=== PATIENT | male | born 1955 | race Caucasian/White ===

== ENCOUNTER 2016-10-24 03:54 | Inpatient (IN) | payer MEDICARE, OTHER ==
[~2016-10-24] VITALS: Ht 172.7 cm; Wt 104.9 kg
[~2016-10-24 03:54] MED LIST: ASPI81TA2 PO; ATOR20TA86 PO; BUME1TAB30 PO; CHOL200016 PO; CLOP75 PO; DULO30CA2 PO; INSU100V SQ; ISOS30TA6 PO; METO25TA3 PO; MULT-1272 PO; ONDA4 PO; RANO10003 PO
[2016-10-24] MEDS ORDERED: AMLO10TA55 PO (04:15)
[2016-10-24] MEDS ORDERED: OXYC-164 PO (04:15)
[2016-10-24] MEDS ORDERED: CALC667C PO (04:15)
[2016-10-24] MEDS ORDERED: MV,F1CAP PO (04:15)
[2016-10-24] MEDS ORDERED: PROC5TAB PO (04:15)
[2016-10-24] MEDS ORDERED: CARV6.2534 PO (04:15)
[2016-10-24 04:30] LABS: EOSINOPHILS # (AUTO) 0.04 K/uL (0.00-0.70); EOSINOPHILS % (AUTO) 0.44 % (1.0-6.0); HEMATOCRIT 32.6 % (41-53); HEMOGLOBIN 10.8 g/dL (13.5-17.5); LYMPHOCYTES # (AUTO) 0.6 K/uL (1.0-4.8); LYMPHOCYTES % (AUTO) 6.3 % (22.0-44.0); MEAN CORPUSCULAR HEMOGLOBIN 29.1 pg (26.0-34.0); MEAN CORPUSCULAR VOLUME 88 fL (80-100); MONOCYTES # (AUTO) 0.7 K/uL (0.1-1.0); MONOCYTES % (AUTO) 6.6 % (2.0-9.0); NEUTROPHILS # (AUTO) 8.7 K/uL (1.8-7.7); PLATELET COUNT (AUTO) 233 K/uL (150-450); RED BLOOD CELL COUNT(AUTO) 3.69 MIL/uL (4.50-5.90); RED CELL DISTRIBUTION WIDTH 17.7 % (11.5-14.5); WHITE BLOOD COUNT (AUTO) 10.1 K/uL (4.5-11.0)
[2016-10-24 04:33] LABS: NEUTROPHILS % (AUTO) 86.6 % (40.0-70.0)
[2016-10-24 04:41] LABS: ANION GAP 14 mmol/L (8-16); CALCIUM, TOTAL 7.9 mg/dL (8.8-10.5); CARBON DIOXIDE 25 mmol/L (22-29); CHLORIDE 91 mmol/L (98-107); GLOMERULAR FILTR. RATE CALC 10 mL/min (>60); POTASSIUM 4.7 mmol/L (3.5-5.1); PROTHROMBIN TIME 10.5 SEC (9.4-11.6); SODIUM SERUM 130 mmol/L (136-145); UREA NITROGEN, BLOOD 41 mg/dL (7-18)
[2016-10-24 04:52] LABS: APPEARANCE,URINE TURBID (CLEAR); GLUCOSE, URINE (UA) 500 mg/dL (NEGATIVE); KETONES,URINE NEGATIVE (NEGATIVE); LEUKOCYTE ESTERASE ,URINE LARGE (NEGATIVE); OCCULT BLOOD,URINE MODERATE (NEGATIVE); PROTEIN,URINE SEE CONFIRM (NEGATIVE)
[2016-10-24 04:54] LABS: ADD UA MICROSCOPIC YES
[2016-10-24 04:59] LABS: B-TYPE NATRIURETIC PEPTIDE 1110 pg/mL (0-100)
[2016-10-24 05:05] LABS: ALANINE AMINOTRANSFERASE 17 U/L (12-78); ALBUMIN 2.6 g/dL (3.4-5.0); ASPARTATE AMINOTRANSFERASE 56 U/L (15-37); BILIRUBIN,TOTAL 0.6 mg/dL (0.1-1.0); CREATINE KINASE MB 0.8 ng/mL (0-5); CREATINE KINASE, TOTAL 167 U/L (39-308); TOTAL PROTEIN, SERUM 8.1 g/dL (6.4-8.2)
[2016-10-24 05:06] LABS: SQUAMOUS EPITHELIAL CELL,UR Few /LPF (None Seen); SULFOSALICYLIC ACID,URINE 3+ (Negative); WBC,URINE 51-100 /HPF (0-5)
[2016-10-24] MEDS ORDERED: CefTRIAXone 1 GM/DEXTROSE 50 ML IV ONE (05:30)
[2016-10-24] MEDS ORDERED: ZOLPIDEM TARTRATE 10 MG TABLET PO PRN (05:30)
[2016-10-24] MEDS ORDERED: ONDANSETRON HCL 4 MG/2 ML VIAL IVP PRN (05:30)
[2016-10-24] MEDS ORDERED: AZITHROMYCIN 500 MG/NS 250 ML IV ONE (05:30)
[2016-10-24] MEDS: ACETAMINOPHEN 325 MG TABLET PO PRN (06:32)
[2016-10-24] MEDS ORDERED: IPRATROPIUM BROMIDE 0.5 MG/2.5 ML NEB SOLUTION NEB ONE (07:00)
[2016-10-24] MEDS ORDERED: ALBUTEROL SULFATE 2.5 MG/0.5 ML NEB SOLUTION NEB ONE (07:00)
[2016-10-24] MEDS: AmLODIPine BESYLATE 10 MG TABLET PO SCH (08:41)
[2016-10-24] MEDS: DULoxetine HCL 30 MG CAPSULE PO SCH (08:41)
[2016-10-24] MEDS: RANOLAZINE 500 MG SR TABLET PO SCH ×2 (08:41→21:05)
[2016-10-24] MEDS: CALCIUM ACETATE 667 MG CAPSULE PO SCH ×3 (08:41→18:19)
[2016-10-24] MEDS: METOPROLOL SUCCINATE 25 MG ER TABLET PO SCH ×2 (08:42→21:04)
[2016-10-24] MEDS: CHOLECALCIFEROL (VIT D3) 2,000 UNITS TABLET PO SCH (08:42)
[2016-10-24] MEDS: ISOSORBIDE MONONITRATE 30 MG ER TABLET PO SCH (08:42)
[2016-10-24] MEDS: CLOPIDOGREL BISULFATE 75 MG TABLET PO SCH (08:44)
[2016-10-24] MEDS: PANTOPRAZOLE SODIUM 40 MG DR TABLET PO SCH (08:44)
[2016-10-24] MEDS: ASPIRIN 81 MG CHEWABLE TABLET PO SCH (08:45)
[2016-10-24] MEDS: HEPARIN SODIUM,PORCINE 5,000 UNITS/ML VIAL SQ SCH ×3 (08:45→23:15)
[2016-10-24] MEDS ORDERED: CARVEDILOL 6.25 MG TABLET PO SCH (09:00)
[2016-10-24 14:37] LABS: GLUCOSE,POINT OF CARE 320 MG/DL (70-110)
[2016-10-24 15:42] VITALS: BP 148/79
[2016-10-24] MEDS: OxyCODONE HCL/ACETAMINOPHEN 5-325 MG TABLET PO PRN ×2 (16:16→21:05)
[2016-10-24 19:13] VITALS: BP 151/79
[2016-10-24] MEDS ORDERED: FUROSEMIDE 20 MG/2 ML VIAL ONE (21:02)
[2016-10-24] MEDS: ATORVASTATIN CALCIUM 20 MG TABLET PO SCH (21:05)
[2016-10-24] MEDS ORDERED: FUROSEMIDE 40 MG/4 ML VIAL IVP ONE (21:15)
[2016-10-24] MEDS ORDERED: NITROGLYCERIN 2% (1 GM=INCH) PACKET TP ONE (21:15)
[2016-10-25] VITALS: BP 154/119
[2016-10-25] MEDS ORDERED: SODIUM CHLORIDE 0.9% 2,000 ML IV ONE (03:17)
[2016-10-25 04:00] VITALS: BP 136/72
[2016-10-25 05:49] LABS: ALBUMIN 2.8 g/dL (3.4-5.0); BILIRUBIN,TOTAL 0.6 mg/dL (0.1-1.0); CREATININE 4.76 mg/dL (0.60-1.30); MAGNESIUM 1.8 mg/dL (1.80-2.40); POTASSIUM 4.1 mmol/L (3.5-5.1); TOTAL PROTEIN, SERUM 7.7 g/dL (6.4-8.2)
[2016-10-25 06:50] LABS: BASOPHILS % (AUTO) 0.2 % (0.0-2.0); EOSINOPHILS % (AUTO) 0.4 % (1.0-6.0); HEMATOCRIT 34.9 % (41-53); HEMOGLOBIN 11.1 g/dL (13.5-17.5); LYMPHOCYTES # (AUTO) 0.7 K/uL (1.0-4.8); LYMPHOCYTES % (AUTO) 7.5 % (22.0-44.0); MEAN CORPUSCULAR HEMOGLOBIN 28.3 pg (26.0-34.0); MEAN CORPUSCULAR HGB CONC 31.9 G/dL (31.0-37.0); MEAN CORPUSCULAR VOLUME 89 fL (80-100); MONOCYTES # (AUTO) 0.5 K/uL (0.1-1.0); NEUTROPHILS # (AUTO) 7.7 K/uL (1.8-7.7); NEUTROPHILS % (AUTO) 85.9 % (40.0-70.0); PLATELET COUNT (AUTO) 270 K/uL (150-450); RED BLOOD CELL COUNT(AUTO) 3.93 MIL/uL (4.50-5.90); RED CELL DISTRIBUTION WIDTH 17.2 % (11.5-14.5)
[2016-10-25 08:00] VITALS: BP 144/71
[2016-10-25] MEDS: HEPARIN SODIUM,PORCINE 5,000 UNITS/ML VIAL SQ SCH ×3 (09:19→23:21)
[2016-10-25] MEDS: CLOPIDOGREL BISULFATE 75 MG TABLET PO SCH (09:19)
[2016-10-25] MEDS: ASPIRIN 81 MG CHEWABLE TABLET PO SCH (09:19)
[2016-10-25] MEDS: AmLODIPine BESYLATE 10 MG TABLET PO SCH (09:19)
[2016-10-25] MEDS: METOPROLOL SUCCINATE 25 MG ER TABLET PO SCH ×2 (09:19→20:31)
[2016-10-25] MEDS: CHOLECALCIFEROL (VIT D3) 2,000 UNITS TABLET PO SCH (09:20)
[2016-10-25] MEDS: CALCIUM ACETATE 667 MG CAPSULE PO SCH ×3 (09:20→16:46)
[2016-10-25] MEDS: RANOLAZINE 500 MG SR TABLET PO SCH ×2 (09:20→20:35)
[2016-10-25] MEDS: ISOSORBIDE MONONITRATE 30 MG ER TABLET PO SCH (09:20)
[2016-10-25] MEDS: DULoxetine HCL 30 MG CAPSULE PO SCH (09:21)
[2016-10-25] MEDS: PANTOPRAZOLE SODIUM 40 MG DR TABLET PO SCH (09:22)
[2016-10-25 10:17] LABS: RBC MORPHOLOGY COMMENT ABNORMAL RBC MORPH
[2016-10-25] MEDS: AZITHROMYCIN 500 MG/NS 250 ML IV SCH (10:31)
[2016-10-25] MEDS: CefTRIAXone 1 GM/DEXTROSE 50 ML IV SCH (10:31)
[2016-10-25] MEDS ORDERED: SODIUM CHLORIDE 0.9% 250 ML IV ONE (10:33)
[2016-10-25] MEDS ORDERED: DEXTROSE 50%-WATER 25 GM/50 ML SYRINGE IVP PRN (11:15)
[2016-10-25] MEDS: INSULIN ASPART 100 UNITS/ML SQ PRN ×3 (11:24→23:23)
[2016-10-25 11:41] LABS: GLUCOSE COMMENT 1 Received Meds; GLUCOSE,POINT OF CARE 356 MG/DL (70-110)
[2016-10-25 12:00] VITALS: BP 124/71
[2016-10-25 16:00] VITALS: BP 143/77
[2016-10-25] MEDS ORDERED: SODIUM CHLORIDE 0.9% 1,000 ML IV ONE (18:05)
[2016-10-25] MEDS ORDERED: ALBUMIN HUMAN 25%-12.5GM/50ML IV BOTTLE IV PRN (18:45)
[2016-10-25] MEDS ORDERED: LIDOCAINE HCL/PF 1% 2 ML VIAL ID PRN (18:45)
[2016-10-25] MEDS ORDERED: DiphenhydrAMINE HCL 50 MG/ML VIAL IVP PRN (18:45)
[2016-10-25] MEDS ORDERED: MANNITOL 25%-12.5 GM/50 ML VIAL IVP PRN (18:45)
[2016-10-25] MEDS ORDERED: 0.9% SODIUM CHLORIDE 10 ML SYRINGE IVP PRN (19:15)
[2016-10-25 20:00] VITALS: BP 136/78
[2016-10-25] MEDS: OxyCODONE HCL/ACETAMINOPHEN 5-325 MG TABLET PO PRN (20:31)
[2016-10-25] MEDS: ATORVASTATIN CALCIUM 20 MG TABLET PO SCH (20:31)
[2016-10-25] MEDS: ACETAMINOPHEN 325 MG TABLET PO PRN (21:25)
[2016-10-25 23:26] LABS: GLUCOSE COMMENT 1 Received Meds; GLUCOSE,POINT OF CARE 200 MG/DL (70-110)
[2016-10-25 23:26] LABS: GLUCOSE COMMENT 1 Received Meds; GLUCOSE,POINT OF CARE 321 MG/DL (70-110)
[2016-10-26] VITALS (8 sets, daily range): BP systolic 112–151; BP diastolic 60–86
[2016-10-26 06:02] LABS: ALBUMIN 2.4 g/dL (3.4-5.0); BILIRUBIN,TOTAL 0.4 mg/dL (0.1-1.0); CALCIUM, TOTAL 7.9 mg/dL (8.8-10.5); CREATININE 4.99 mg/dL (0.60-1.30); MAGNESIUM 1.8 mg/dL (1.80-2.40); TOTAL PROTEIN, SERUM 8.1 g/dL (6.4-8.2)
[2016-10-26] MEDS: INSULIN ASPART 100 UNITS/ML SQ PRN ×4 (06:51→20:50)
[2016-10-26 06:56] LABS: BASOPHILS % (AUTO) 0.6 % (0.0-2.0); EOSINOPHILS % (AUTO) 4.7 % (1.0-6.0); HEMATOCRIT 33.3 % (41-53); HEMOGLOBIN 10.6 g/dL (13.5-17.5); MEAN CORPUSCULAR HEMOGLOBIN 28.3 pg (26.0-34.0); MEAN CORPUSCULAR HGB CONC 31.7 G/dL (31.0-37.0); MEAN CORPUSCULAR VOLUME 89 fL (80-100); MONOCYTES # (AUTO) 0.6 K/uL (0.1-1.0); NEUTROPHILS # (AUTO) 4.5 K/uL (1.8-7.7); NEUTROPHILS % (AUTO) 69.7 % (40.0-70.0); PLATELET COUNT (AUTO) 243 K/uL (150-450); RED BLOOD CELL COUNT(AUTO) 3.73 MIL/uL (4.50-5.90); RED CELL DISTRIBUTION WIDTH 17.4 % (11.5-14.5); WHITE BLOOD COUNT (AUTO) 6.4 K/uL (4.5-11.0)
[2016-10-26] MEDS: CefTRIAXone 1 GM/DEXTROSE 50 ML IV SCH (09:15)
[2016-10-26] MEDS: HEPARIN SODIUM,PORCINE 5,000 UNITS/ML VIAL SQ SCH ×3 (09:15→23:32)
[2016-10-26] MEDS: AmLODIPine BESYLATE 10 MG TABLET PO SCH (09:16)
[2016-10-26] MEDS: RANOLAZINE 500 MG SR TABLET PO SCH ×2 (09:16→20:49)
[2016-10-26] MEDS: CLOPIDOGREL BISULFATE 75 MG TABLET PO SCH (09:16)
[2016-10-26] MEDS: CHOLECALCIFEROL (VIT D3) 2,000 UNITS TABLET PO SCH (09:16)
[2016-10-26] MEDS: METOPROLOL SUCCINATE 25 MG ER TABLET PO SCH ×2 (09:16→20:49)
[2016-10-26] MEDS: ISOSORBIDE MONONITRATE 30 MG ER TABLET PO SCH (09:16)
[2016-10-26] MEDS: CALCIUM ACETATE 667 MG CAPSULE PO SCH ×3 (09:16→16:30)
[2016-10-26] MEDS: PANTOPRAZOLE SODIUM 40 MG DR TABLET PO SCH (09:16)
[2016-10-26] MEDS: DULoxetine HCL 30 MG CAPSULE PO SCH (09:17)
[2016-10-26] MEDS: ASPIRIN 81 MG CHEWABLE TABLET PO SCH (09:17)
[2016-10-26] MEDS: VITAMINS A & D 60 GM OINTMENT TP SCH (09:18)
[2016-10-26 09:46] LABS: GLUCOSE COMMENT 1 Received Meds; GLUCOSE,POINT OF CARE 235 MG/DL (70-110)
[2016-10-26] MEDS: AZITHROMYCIN 500 MG/NS 250 ML IV SCH (10:16)
[2016-10-26] MEDS ORDERED: SODIUM CHLORIDE 0.9% 250 ML IV ONE (12:08)
[2016-10-26] MEDS: VITAMIN B COMP/VIT C/FOLIC ACID CAPSULE PO SCH (13:02)
[2016-10-26 20:27] LABS: GLUCOSE COMMENT 1 Received Meds; GLUCOSE,POINT OF CARE 159 MG/DL (70-110)
[2016-10-26 20:27] LABS: GLUCOSE COMMENT 1 Received Meds; GLUCOSE,POINT OF CARE 321 MG/DL (70-110)
[2016-10-26] MEDS: ATORVASTATIN CALCIUM 20 MG TABLET PO SCH (20:49)
[2016-10-26] MEDS: OxyCODONE HCL/ACETAMINOPHEN 5-325 MG TABLET PO PRN (21:29)
[2016-10-27 04:19] VITALS: BP 149/74
[2016-10-27] MEDS: OxyCODONE HCL/ACETAMINOPHEN 5-325 MG TABLET PO PRN ×2 (06:11→22:02)
[2016-10-27] MEDS: INSULIN ASPART 100 UNITS/ML SQ PRN ×3 (06:15→21:43)
[2016-10-27 07:11] VITALS: BP 130/66
[2016-10-27 08:33] LABS: BASOPHILS % (AUTO) 0.4 % (0.0-2.0); EOSINOPHILS % (AUTO) 6.8 % (1.0-6.0); HEMATOCRIT 33.9 % (41-53); HEMOGLOBIN 10.8 g/dL (13.5-17.5); LYMPHOCYTES # (AUTO) 0.9 K/uL (1.0-4.8); LYMPHOCYTES % (AUTO) 15.2 % (22.0-44.0); MEAN CORPUSCULAR HEMOGLOBIN 28.4 pg (26.0-34.0); MEAN CORPUSCULAR VOLUME 89 fL (80-100); MONOCYTES # (AUTO) 0.4 K/uL (0.1-1.0); MONOCYTES % (AUTO) 6.5 % (2.0-9.0); NEUTROPHILS # (AUTO) 4.1 K/uL (1.8-7.7); NEUTROPHILS % (AUTO) 71.1 % (40.0-70.0); PLATELET COUNT (AUTO) 252 K/uL (150-450); RED BLOOD CELL COUNT(AUTO) 3.81 MIL/uL (4.50-5.90); RED CELL DISTRIBUTION WIDTH 17.8 % (11.5-14.5); WHITE BLOOD COUNT (AUTO) 5.7 K/uL (4.5-11.0)
[2016-10-27 08:54] LABS: ALBUMIN 2.2 g/dL (3.4-5.0); BILIRUBIN,TOTAL 0.4 mg/dL (0.1-1.0); CREATININE 6.66 mg/dL (0.60-1.30); POTASSIUM 4.4 mmol/L (3.5-5.1); TOTAL PROTEIN, SERUM 7.8 g/dL (6.4-8.2)
[2016-10-27 09:18] LABS: PHOSPHORUS 5.3 mg/dL (2.5-4.9)
[2016-10-27] MEDS: CALCIUM ACETATE 667 MG CAPSULE PO SCH ×3 (09:20→17:14)
[2016-10-27] MEDS: ISOSORBIDE MONONITRATE 30 MG ER TABLET PO SCH (09:21)
[2016-10-27] MEDS: METOPROLOL SUCCINATE 25 MG ER TABLET PO SCH ×2 (09:21→21:43)
[2016-10-27] MEDS: CLOPIDOGREL BISULFATE 75 MG TABLET PO SCH (09:21)
[2016-10-27] MEDS: HEPARIN SODIUM,PORCINE 5,000 UNITS/ML VIAL SQ SCH ×3 (09:21→23:13)
[2016-10-27] MEDS: CHOLECALCIFEROL (VIT D3) 2,000 UNITS TABLET PO SCH (09:21)
[2016-10-27] MEDS: AmLODIPine BESYLATE 10 MG TABLET PO SCH (09:21)
[2016-10-27] MEDS: DULoxetine HCL 30 MG CAPSULE PO SCH (09:21)
[2016-10-27] MEDS: PANTOPRAZOLE SODIUM 40 MG DR TABLET PO SCH (09:21)
[2016-10-27] MEDS: ASPIRIN 81 MG CHEWABLE TABLET PO SCH (09:21)
[2016-10-27] MEDS: RANOLAZINE 500 MG SR TABLET PO SCH ×2 (09:22→21:43)
[2016-10-27] MEDS: VITAMIN B COMP/VIT C/FOLIC ACID CAPSULE PO SCH (09:25)
[2016-10-27] MEDS: VITAMINS A & D 60 GM OINTMENT TP SCH (09:26)
[2016-10-27] MEDS: CefTRIAXone 1 GM/DEXTROSE 50 ML IV SCH (09:31)
[2016-10-27] MEDS: AZITHROMYCIN 500 MG/NS 250 ML IV SCH (09:32)
[2016-10-27 09:53] LABS: RBC MORPHOLOGY COMMENT ABNORMAL RBC MORPH
[2016-10-27 11:19] VITALS: BP 138/75
[2016-10-27 12:11] LABS: GLUCOSE COMMENT 1 Received Meds; GLUCOSE,POINT OF CARE 267 MG/DL (70-110)
[2016-10-27 15:39] VITALS: BP 151/81
[2016-10-27 19:22] VITALS: BP 143/73
[2016-10-27 19:31] LABS: GLUCOSE COMMENT 1 Received Meds; GLUCOSE,POINT OF CARE 259 MG/DL (70-110)
[2016-10-27 19:31] LABS: GLUCOSE COMMENT 1 Received Meds; GLUCOSE,POINT OF CARE 230 MG/DL (70-110)
[2016-10-27] MEDS ORDERED: SODIUM CHLORIDE 0.9% 2,000 ML IV ONE (20:01)
[2016-10-27] MEDS ORDERED: SODIUM CHLORIDE 0.9% 250 ML IV ONE (20:01)
[2016-10-27] MEDS: ATORVASTATIN CALCIUM 20 MG TABLET PO SCH (21:43)
[2016-10-27 23:27] VITALS: BP 139/73
[2016-10-27 23:57] LABS: GLUCOSE COMMENT 1 Received Meds; GLUCOSE,POINT OF CARE 281 MG/DL (70-110)
[2016-10-28 04:34] VITALS: BP 140/80
[2016-10-28] MEDS: INSULIN ASPART 100 UNITS/ML SQ PRN ×2 (06:44→11:27)
[2016-10-28] MEDS ORDERED: BISACODYL 10 MG RECTAL RECTAL SUPPOSITORY PR PRN (06:45)
[2016-10-28 07:12] LABS: BASOPHILS % (AUTO) 0.4 % (0.0-2.0); EOSINOPHILS % (AUTO) 5.6 % (1.0-6.0); HEMOGLOBIN 9.9 g/dL (13.5-17.5); LYMPHOCYTES # (AUTO) 1.3 K/uL (1.0-4.8); LYMPHOCYTES % (AUTO) 19.6 % (22.0-44.0); MEAN CORPUSCULAR HEMOGLOBIN 28.5 pg (26.0-34.0); MEAN CORPUSCULAR HGB CONC 31.9 G/dL (31.0-37.0); MEAN CORPUSCULAR VOLUME 89 fL (80-100); MONOCYTES # (AUTO) 0.5 K/uL (0.1-1.0); MONOCYTES % (AUTO) 7.2 % (2.0-9.0); NEUTROPHILS # (AUTO) 4.5 K/uL (1.8-7.7); NEUTROPHILS % (AUTO) 67.2 % (40.0-70.0); PLATELET COUNT (AUTO) 289 K/uL (150-450); RED BLOOD CELL COUNT(AUTO) 3.47 MIL/uL (4.50-5.90); RED CELL DISTRIBUTION WIDTH 17.6 % (11.5-14.5); WHITE BLOOD COUNT (AUTO) 6.7 K/uL (4.5-11.0)
[2016-10-28 07:44] LABS: ALBUMIN 2.2 g/dL (3.4-5.0); BILIRUBIN,TOTAL 0.4 mg/dL (0.1-1.0); CALCIUM, TOTAL 7.9 mg/dL (8.8-10.5); CREATININE 5.37 mg/dL (0.60-1.30); MAGNESIUM 1.9 mg/dL (1.80-2.40); POTASSIUM 4.5 mmol/L (3.5-5.1); TOTAL PROTEIN, SERUM 7.6 g/dL (6.4-8.2)
[2016-10-28] MEDS: HEPARIN SODIUM,PORCINE 5,000 UNITS/ML VIAL SQ SCH (08:52)
[2016-10-28] MEDS: RANOLAZINE 500 MG SR TABLET PO SCH (08:52)
[2016-10-28] MEDS: CHOLECALCIFEROL (VIT D3) 2,000 UNITS TABLET PO SCH (08:52)
[2016-10-28] MEDS: VITAMIN B COMP/VIT C/FOLIC ACID CAPSULE PO SCH (08:53)
[2016-10-28] MEDS: PANTOPRAZOLE SODIUM 40 MG DR TABLET PO SCH (08:53)
[2016-10-28] MEDS: CALCIUM ACETATE 667 MG CAPSULE PO SCH ×2 (08:53→11:55)
[2016-10-28] MEDS: ASPIRIN 81 MG CHEWABLE TABLET PO SCH (08:53)
[2016-10-28] MEDS: DULoxetine HCL 30 MG CAPSULE PO SCH (08:53)
[2016-10-28] MEDS: AmLODIPine BESYLATE 10 MG TABLET PO SCH (08:53)
[2016-10-28] MEDS: METOPROLOL SUCCINATE 25 MG ER TABLET PO SCH (08:54)
[2016-10-28] MEDS: ISOSORBIDE MONONITRATE 30 MG ER TABLET PO SCH (08:54)
[2016-10-28] MEDS: VITAMINS A & D 60 GM OINTMENT TP SCH (08:55)
[2016-10-28] MEDS: CefTRIAXone 1 GM/DEXTROSE 50 ML IV SCH (09:08)
[2016-10-28] MEDS: CLOPIDOGREL BISULFATE 75 MG TABLET PO SCH (09:09)
[2016-10-28 09:12] LABS: RBC MORPHOLOGY COMMENT ABNORMAL RBC MORPH
[2016-10-28] MEDS: AZITHROMYCIN 500 MG/NS 250 ML IV SCH (10:58)
[2016-10-28] MEDS ORDERED: LEVO500 PO (14:46)
[2016-10-28] MEDS ORDERED: FOLI1CAP2 PO (14:47)
[2016-10-28] MEDS ORDERED: PETR454O TP (14:48)
[2016-10-29 14:52] LABS: GLUCOSE COMMENT 1 Received Meds; GLUCOSE,POINT OF CARE 242 MG/DL (70-110)
[2016-11-03 18:12] LABS: GLUCOSE,POINT OF CARE 224 MG/DL (70-110)
[2016-11-03 18:12] LABS: GLUCOSE,POINT OF CARE 214 MG/DL (70-110)
[2017-01-27] MEDS ORDERED: ASPI81 PO (23:36)
[2017-01-27] MEDS ORDERED: COMP5 PO (23:36)
[2017-01-27] MEDS ORDERED: TRAM50TA4 PO (23:36)
[2017-01-27] MEDS ORDERED: CARV6 PO (23:36)
[2017-01-27] MEDS ORDERED: TICA90TA PO (23:36)
[2017-01-27] MEDS ORDERED: VITAD1000 PO (23:36)
[2017-01-27] MEDS ORDERED: B&C/1TAB3 PO (23:36)
[2017-01-27] MEDS ORDERED: RANO500T3 PO (23:36)
[2017-01-27] MEDS ORDERED: CLON.2 PO (23:36)
[2017-01-27] MEDS ORDERED: DULO20CA30 PO (23:36)
== END 2016-10-28 13:45 | disposition home or self-care (01) | DRG 166 ==
LOC: EMS 03:56 → 5S 15:08 → ICU 23:55 → 5N 10-26 20:52
PROVIDERS: ADMIT Hospitalist; ATTEND Hospitalist
PROC: 5A1D60Z (ICD-10-PCS; principal; 2016-10-24)
PROC: 5A09357 Assistance with Respiratory Ventilation, Less than 24 Consecutive Hours, Continuous Positive Airway Pressure (ICD-10-PCS; 2016-10-24)
PROC: 0HBMXZZ Excision of Right Foot Skin, External Approach (ICD-10-PCS; 2016-10-25)
DX: J96.01 Acute respiratory failure with hypoxia (principal); I50.23 Acute on chronic systolic (congestive) heart failure; J18.9 Pneumonia, unspecified organism; I21.4 Non-ST elevation (NSTEMI) myocardial infarction; E43 Unspecified severe protein-calorie malnutrition; N18.6 End stage renal disease; A41.9 Sepsis, unspecified organism; I50.43 Acute on chronic combined systolic (congestive) and diastolic (congestive) heart failure; I13.2 Hypertensive heart and chronic kidney disease with heart failure and with stage 5 chronic kidney disease, or end stage renal disease; N39.0 Urinary tract infection, site not specified; E87.1 Hypo-osmolality and hyponatremia; J44.0 Chronic obstructive pulmonary disease with (acute) lower respiratory infection; D63.8 Anemia in other chronic diseases classified elsewhere; E11.22 Type 2 diabetes mellitus with diabetic chronic kidney disease; E11.621 Type 2 diabetes mellitus with foot ulcer; E11.65 Type 2 diabetes mellitus with hyperglycemia; E78.00 Pure hypercholesterolemia, unspecified; E78.5 Hyperlipidemia, unspecified; I25.10 Atherosclerotic heart disease of native coronary artery without angina pectoris; I25.2 Old myocardial infarction; I45.10 Unspecified right bundle-branch block; Z86.73 Personal history of transient ischemic attack (TIA), and cerebral infarction without residual deficits; L97.519 Non-pressure chronic ulcer of other part of right foot with unspecified severity; I73.9 Peripheral vascular disease, unspecified; F17.210 Nicotine dependence, cigarettes, uncomplicated; Z99.2 Dependence on renal dialysis; Z68.35 Body mass index [BMI] 35.0-35.9, adult; Z79.82 Long term (current) use of aspirin; Z79.4 Long term (current) use of insulin; Z79.1 Long term (current) use of non-steroidal anti-inflammatories (NSAID); Z79.891 Long term (current) use of opiate analgesic; Z79.51 Long term (current) use of inhaled steroids; Z79.899 Other long term (current) drug therapy
CPT/HCPCS: 51702; 82962; 83735; 84100; 86706; 87040; 87070; 87081; 87086; 87147; 87205; 87340; 90935; 93005; 93306; 94640; 94660; 96365; 96368; 96375; 97162; 99285; J0456; J0696; J1644; J1940; J2405; J7030; J7050

== ENCOUNTER → 2016-12-19 | Outpatient (CLI) | payer MEDICARE, OTHER ==
[~2016-12-19] MED LIST changes: +AMLO10TA55 PO; -BUME1TAB30 PO; +CALC667C PO; +FOLI1CAP2 PO; +LEVO500 PO; -MULT-1272 PO; -ONDA4 PO; +PETR454O TP
[2016-12-19 12:42] LABS: BASOPHILS # (AUTO) 0.02 K/uL (0.00-0.20); BASOPHILS % (AUTO) 0.1 % (0.0-2.0); EOSINOPHILS # (AUTO) 0.01 K/uL (0.00-0.70); EOSINOPHILS % (AUTO) 0.04 % (1.0-6.0); HEMATOCRIT 29.6 % (41-53); HEMOGLOBIN 9.5 g/dL (13.5-17.5); LYMPHOCYTES # (AUTO) 0.9 K/uL (1.0-4.8); LYMPHOCYTES % (AUTO) 4.8 % (22.0-44.0); MEAN CORPUSCULAR HEMOGLOBIN 28.9 pg (26.0-34.0); MEAN CORPUSCULAR HGB CONC 32.1 G/dL (31.0-37.0); MEAN CORPUSCULAR VOLUME 90 fL (80-100); MONOCYTES # (AUTO) 1.3 K/uL (0.1-1.0); MONOCYTES % (AUTO) 7.3 % (2.0-9.0); PLATELET COUNT (AUTO) 457 K/uL (150-450); RED BLOOD CELL COUNT(AUTO) 3.28 MIL/uL (4.50-5.90); RED CELL DISTRIBUTION WIDTH 19.1 % (11.5-14.5); WHITE BLOOD COUNT (AUTO) 18.2 K/uL (4.5-11.0)
[2016-12-19 12:46] LABS: NEUTROPHILS % (AUTO) 87.8 % (40.0-70.0)
[2016-12-19 12:49] LABS: APPEARANCE,URINE TURBID (CLEAR); GLUCOSE, URINE (UA) 500 mg/dL (NEGATIVE); KETONES,URINE TRACE mg/dL (NEGATIVE); LEUKOCYTE ESTERASE ,URINE LARGE (NEGATIVE); OCCULT BLOOD,URINE SMALL (NEGATIVE); PROTEIN,URINE SEE CONFIRM (NEGATIVE)
[2016-12-19 12:51] LABS: ADD UA MICROSCOPIC YES
[2016-12-19 12:55] LABS: HEMOGLOBIN A1C 11.7 % (4.5-6.2)
[2016-12-19 13:02] LABS: ALBUMIN 2.7 g/dL (3.4-5.0); BILIRUBIN,TOTAL 0.5 mg/dL (0.1-1.0); CALCIUM, TOTAL 8.7 mg/dL (8.8-10.5); CHOL/HDL RATIO 2.6 (4.2-7.3); CREATININE 6.6 mg/dL (0.60-1.30); POTASSIUM 4.7 mmol/L (3.5-5.1); THYROID STIMULATING HORMONE 2.65 uIU/mL (0.36-3.74); TOTAL PROTEIN, SERUM 8.2 g/dL (6.4-8.2)
[2016-12-19 13:12] LABS: PROSTATE SPECIFIC ANTIGEN 0.46 ng/mL (0.00-4.00)
[2016-12-19 13:21] LABS: SULFOSALICYLIC ACID,URINE 3+ (Negative)
[2016-12-19 13:22] LABS: SQUAMOUS EPITHELIAL CELL,UR Moderate /LPF (None Seen); WBC,URINE >100 /HPF (0-5)
== END | disposition home or self-care (01) ==
LOC: LABPV 09:38
PROVIDERS: ATTEND Family Medicine
DX: Z12.5 Encounter for screening for malignant neoplasm of prostate (principal); Z12.11 Encounter for screening for malignant neoplasm of colon; E11.65 Type 2 diabetes mellitus with hyperglycemia; E55.9 Vitamin D deficiency, unspecified; E11.22 Type 2 diabetes mellitus with diabetic chronic kidney disease; I13.0 Hypertensive heart and chronic kidney disease with heart failure and stage 1 through stage 4 chronic kidney disease, or unspecified chronic kidney disease; N18.9 Chronic kidney disease, unspecified; E78.00 Pure hypercholesterolemia, unspecified; N39.0 Urinary tract infection, site not specified; N20.0 Calculus of kidney; R31.9 Hematuria, unspecified; Z79.84 Long term (current) use of oral hypoglycemic drugs; Z94.0 Kidney transplant status
CPT/HCPCS: 82043; 82306; 82570; 83036; 84153; 84443; 87086

== ENCOUNTER → 2017-01-14 | Outpatient (CLI) | payer MEDICARE, OTHER ==
[~2017-01-14] MED LIST changes: +ASPI81 PO; +B&C/1TAB3 PO; +CARV6 PO; +CLON.2 PO; +COMP5 PO; +DULO20CA30 PO; +RANO500T3 PO; +REGADENOSON 0.4 MG/5 ML PF SYRINGE IVP ONE; +SESTAMIBI TC99M/UD ISOTOPE 1 EA INJ INJ ONE; +TICA90TA PO; +TRAM50TA4 PO; +VITAD1000 PO
[2017-01-14 08:59] VITALS: BP 127/84
[2017-01-14 09:04] VITALS: BP 126/75
== END | disposition home or self-care (01) ==
LOC: CARDMN 07:53
PROVIDERS: ATTEND Internal Medicine Cardiovascular Disease
DX: I25.9 Chronic ischemic heart disease, unspecified (principal); I08.1 Rheumatic disorders of both mitral and tricuspid valves; I50.9 Heart failure, unspecified; I50.1 Left ventricular failure, unspecified; I25.2 Old myocardial infarction; I45.10 Unspecified right bundle-branch block; Z95.5 Presence of coronary angioplasty implant and graft
CPT/HCPCS: 78452; 93017; 93306; A9500; J2785

== ENCOUNTER 2017-07-01 10:24 | Inpatient (IN) | payer MEDICARE, OTHER ==
[~2017-07-01] VITALS: Ht 175.3 cm; Wt 104.5 kg
[~2017-07-01 10:24] MED LIST changes: -ASPI81TA2 PO; -CHOL200016 PO; -DULO30CA2 PO; -FOLI1CAP2 PO; -LEVO500 PO; -RANO10003 PO; -REGADENOSON 0.4 MG/5 ML PF SYRINGE IVP ONE; -SESTAMIBI TC99M/UD ISOTOPE 1 EA INJ INJ ONE
[2017-07-01 10:38] LABS: GLUCOSE,POINT OF CARE 152 MG/DL (70-110)
[2017-07-01] MEDS ORDERED: VANCOMYCIN HCL 1 GM/D5% WATER 200 ML IV ONE (12:30)
[2017-07-01] MEDS ORDERED: MORPHINE SULFATE 4 MG/ML SYRINGE IVP ONE (13:00)
[2017-07-01] MEDS ORDERED: ONDANSETRON HCL 4 MG/2 ML VIAL IVP ONE (13:00)
[2017-07-01 13:01] LABS: EOSINOPHILS % (AUTO) 2.3 % (1.0-6.0); HEMATOCRIT 28.8 % (41-53); HEMOGLOBIN 9.3 g/dL (13.5-17.5); LYMPHOCYTES % (AUTO) 8.7 % (22.0-44.0); MEAN CORPUSCULAR HGB CONC 32.3 G/dL (31.0-37.0); MEAN CORPUSCULAR VOLUME 84 fL (80-100); MONOCYTES # (AUTO) 0.8 K/uL (0.1-1.0); MONOCYTES % (AUTO) 6.7 % (2.0-9.0); NEUTROPHILS # (AUTO) 9.8 K/uL (1.8-7.7); NEUTROPHILS % (AUTO) 82.3 % (40.0-70.0); PLATELET COUNT (AUTO) 312 K/uL (150-450); RED BLOOD CELL COUNT(AUTO) 3.45 MIL/uL (4.50-5.90); RED CELL DISTRIBUTION WIDTH 20.7 % (11.5-14.5); WHITE BLOOD COUNT (AUTO) 11.9 K/uL (4.5-11.0)
[2017-07-01 13:28] LABS: CALCIUM, TOTAL 8.5 mg/dL (8.8-10.5); CREATININE 6.16 mg/dL (0.60-1.30); POTASSIUM 4.8 mmol/L (3.5-5.1)
[2017-07-01] MEDS ORDERED: ONDANSETRON HCL 4 MG/2 ML VIAL IVP PRN (13:30)
[2017-07-01] MEDS ORDERED: 0.9% SODIUM CHLORIDE 10 ML SYRINGE IVP PRN (13:30)
[2017-07-01] MEDS ORDERED: ACETAMINOPHEN 325 MG TABLET PO PRN ×2 (13:30→14:00)
[2017-07-01 13:32] LABS: ALBUMIN 2.7 g/dL (3.4-5.0); BILIRUBIN,TOTAL 0.4 mg/dL (0.1-1.0)
[2017-07-01] MEDS ORDERED: BISACODYL 10 MG RECTAL RECTAL SUPPOSITORY PR PRN (14:00)
[2017-07-01] MEDS ORDERED: ALBUTEROL SULFATE 2.5 MG/0.5 ML NEB SOLUTION NEB PRN (14:00)
[2017-07-01 14:18] LABS: GLUCOSE,POINT OF CARE 163 MG/DL (70-110)
[2017-07-01] MEDS ORDERED: DEXTROSE 50%-WATER 25 GM/50 ML SYRINGE IVP PRN (14:30)
[2017-07-01 14:45] LABS: ERYTHROCYTE SEDIMENTATION RATE 115 MM/HR (0-15)
[2017-07-01] MEDS ORDERED: PIPERACILLIN SODIUM/TAZOBACTAM 0.75 GM in DEXTROSE 5%-WATER 50 ML IV PRN (14:45)
[2017-07-01] MEDS ORDERED: VANCOMYCIN HCL 1 GM/D5% WATER 200 ML IV PRN (14:45)
[2017-07-01] MEDS: MORPHINE SULFATE 2 MG/ML SYRINGE IVP PRN (15:27)
[2017-07-01] MEDS ORDERED: SODIUM CHLORIDE 0.9% 500 ML IV ONE (15:31)
[2017-07-01 15:33] LABS: RBC MORPHOLOGY COMMENT ABNORMAL RBC MORPH
[2017-07-01 16:05] VITALS: BP 129/69
[2017-07-01] MEDS: PIPERACILLIN SODIUM/TAZOBACTAM 2.25 GM in DEXTROSE 5%-WATER 50 ML IV SCH (16:58)
[2017-07-01] MEDS ORDERED: VANCOMYCIN HCL 1.25 GM in DEXTROSE 5%-WATER 250 ML IV ONE (17:00)
[2017-07-01] MEDS: INSULIN ASPART 100 UNITS/ML SQ PRN ×2 (17:35→21:47)
[2017-07-01] MEDS: OxyCODONE HCL/ACETAMINOPHEN 5-325 MG TABLET PO PRN (17:49)
[2017-07-01 20:02] VITALS: BP 115/58
[2017-07-01] MEDS: DOCUSATE SODIUM 100 MG CAPSULE PO SCH (21:42)
[2017-07-01] MEDS: HEPARIN SODIUM,PORCINE 5,000 UNITS/ML VIAL SQ SCH (21:42)
[2017-07-01] MEDS: VITAMIN B COMP/VIT C/FOLIC ACID CAPSULE PO SCH (21:43)
[2017-07-01] MEDS: ATORVASTATIN CALCIUM 20 MG TABLET PO SCH (21:43)
[2017-07-01 21:55] LABS: GLUCOSE,POINT OF CARE 258 MG/DL (70-110)
[2017-07-01 21:55] LABS: GLUCOSE,POINT OF CARE 121 MG/DL (70-110)
[2017-07-01 23:47] VITALS: BP 134/71
[2017-07-02] MEDS: PIPERACILLIN SODIUM/TAZOBACTAM 2.25 GM in DEXTROSE 5%-WATER 50 ML IV SCH ×4 (00:44→22:54)
[2017-07-02] MEDS: MORPHINE SULFATE 2 MG/ML SYRINGE IVP PRN ×5 (00:52→22:53)
[2017-07-02 04:54] VITALS: BP 125/66
[2017-07-02] MEDS: INSULIN ASPART 100 UNITS/ML SQ PRN ×3 (06:21→21:30)
[2017-07-02 06:46] LABS: BASOPHILS % (AUTO) 0.2 % (0.0-2.0); EOSINOPHILS % (AUTO) 3.1 % (1.0-6.0); HEMATOCRIT 28.2 % (41-53); HEMOGLOBIN 9.2 g/dL (13.5-17.5); LYMPHOCYTES # (AUTO) 0.7 K/uL (1.0-4.8); MEAN CORPUSCULAR HEMOGLOBIN 27.4 pg (26.0-34.0); MEAN CORPUSCULAR HGB CONC 32.6 G/dL (31.0-37.0); MEAN CORPUSCULAR VOLUME 84 fL (80-100); MONOCYTES # (AUTO) 0.6 K/uL (0.1-1.0); NEUTROPHILS # (AUTO) 8.4 K/uL (1.8-7.7); NEUTROPHILS % (AUTO) 83.7 % (40.0-70.0); PLATELET COUNT (AUTO) 248 K/uL (150-450); RED BLOOD CELL COUNT(AUTO) 3.36 MIL/uL (4.50-5.90); RED CELL DISTRIBUTION WIDTH 20.5 % (11.5-14.5)
[2017-07-02 06:48] LABS: GLUCOSE,POINT OF CARE 180 MG/DL (70-110)
[2017-07-02 07:04] LABS: CALCIUM, TOTAL 8.3 mg/dL (8.8-10.5); CREATININE 6.65 mg/dL (0.60-1.30); MAGNESIUM 2.5 mg/dL (1.80-2.40); PHOSPHORUS 6.2 mg/dL (2.5-4.9); POTASSIUM 5.1 mmol/L (3.5-5.1)
[2017-07-02 07:42] VITALS: BP 130/70
[2017-07-02 08:15] LABS: RBC MORPHOLOGY COMMENT ABNORMAL RBC MORPH
[2017-07-02] MEDS: CLOPIDOGREL BISULFATE 75 MG TABLET PO SCH (08:37)
[2017-07-02] MEDS: DOCUSATE SODIUM 100 MG CAPSULE PO SCH ×2 (08:37→20:23)
[2017-07-02] MEDS: VITAMIN B COMP/VIT C/FOLIC ACID CAPSULE PO SCH (08:38)
[2017-07-02] MEDS: OxyCODONE HCL/ACETAMINOPHEN 5-325 MG TABLET PO PRN (08:38)
[2017-07-02] MEDS: HEPARIN SODIUM,PORCINE 5,000 UNITS/ML VIAL SQ SCH ×2 (08:39→20:23)
[2017-07-02] MEDS: PANTOPRAZOLE SODIUM 40 MG DR TABLET PO SCH (09:44)
[2017-07-02] MEDS ORDERED: LIDOCAINE HCL/PF 1% 2 ML VIAL INJ ONE (12:00)
[2017-07-02] MEDS ORDERED: SODIUM CHLORIDE 0.9% 2,000 ML IV ONE (12:01)
[2017-07-02 12:24] VITALS: BP 132/78
[2017-07-02] MEDS: ASPIRIN 81 MG CHEWABLE TABLET PO SCH (12:40)
[2017-07-02 12:53] LABS: GLUCOSE,POINT OF CARE 223 MG/DL (70-110)
[2017-07-02] MEDS ORDERED: LIDOCAINE HCL/PF 1% 2 ML VIAL ID PRN (13:45)
[2017-07-02 17:54] VITALS: BP 152/81
[2017-07-02] MEDS: EPOETIN ALFA 10,000 UNITS/ML VIAL SQ SCH (19:32)
[2017-07-02 19:35] VITALS: BP 148/90
[2017-07-02] MEDS: ATORVASTATIN CALCIUM 20 MG TABLET PO SCH (20:22)
[2017-07-02] MEDS: SOD FERRIC GLUC COMPLX/SUCROSE 125 MG in SODIUM CHLORIDE 0.9% 100 ML IV SCH (20:23)
[2017-07-02 20:57] LABS: GLUCOSE,POINT OF CARE 161 MG/DL (70-110)
[2017-07-02 23:27] VITALS: BP 155/80
[2017-07-03 04:58] LABS: GLUCOSE COMMENT 1 Received Meds; GLUCOSE,POINT OF CARE 221 MG/DL (70-110)
[2017-07-03 05:13] VITALS: BP 145/92
[2017-07-03] MEDS: MORPHINE SULFATE 2 MG/ML SYRINGE IVP PRN ×4 (05:39→19:51)
[2017-07-03] MEDS: INSULIN ASPART 100 UNITS/ML SQ PRN ×4 (05:39→20:04)
[2017-07-03 06:22] LABS: INR 1.1 (0.9-1.1); PROTHROMBIN TIME 11.2 SEC (9.4-11.6)
[2017-07-03] MEDS: PIPERACILLIN SODIUM/TAZOBACTAM 2.25 GM in DEXTROSE 5%-WATER 50 ML IV SCH ×2 (06:48→15:45)
[2017-07-03] MEDS ORDERED: VANCOMYCIN HCL 1.25 GM in DEXTROSE 5%-WATER 250 ML IV ONE (07:30)
[2017-07-03 07:32] VITALS: BP 94/55
[2017-07-03 08:44] LABS: GLUCOSE COMMENT 1 Received Meds; GLUCOSE,POINT OF CARE 173 MG/DL (70-110)
[2017-07-03] MEDS: PANTOPRAZOLE SODIUM 40 MG DR TABLET PO SCH (09:24)
[2017-07-03] MEDS: ASPIRIN 81 MG CHEWABLE TABLET PO SCH (09:24)
[2017-07-03] MEDS: VITAMIN B COMP/VIT C/FOLIC ACID CAPSULE PO SCH (09:24)
[2017-07-03] MEDS: HEPARIN SODIUM,PORCINE 5,000 UNITS/ML VIAL SQ SCH ×2 (09:24→19:51)
[2017-07-03] MEDS: DOCUSATE SODIUM 100 MG CAPSULE PO SCH ×2 (09:24→19:51)
[2017-07-03] MEDS: CLOPIDOGREL BISULFATE 75 MG TABLET PO SCH (09:24)
[2017-07-03] MEDS: OxyCODONE HCL/ACETAMINOPHEN 5-325 MG TABLET PO PRN (10:32)
[2017-07-03 12:09] VITALS: BP 121/65
[2017-07-03 15:41] VITALS: BP 143/78
[2017-07-03] MEDS: SOD FERRIC GLUC COMPLX/SUCROSE 125 MG in SODIUM CHLORIDE 0.9% 100 ML IV SCH (15:45)
[2017-07-03 16:55] LABS: GLUCOSE COMMENT 1 Received Meds; GLUCOSE,POINT OF CARE 200 MG/DL (70-110)
[2017-07-03 19:37] VITALS: BP 149/82
[2017-07-03] MEDS: ATORVASTATIN CALCIUM 20 MG TABLET PO SCH (19:51)
[2017-07-03 21:09] LABS: GLUCOSE COMMENT 1 Received Meds; GLUCOSE,POINT OF CARE 173 MG/DL (70-110)
[2017-07-03] MEDS: CefTRIAXone SODIUM 2 GM in DEXTROSE 5%-WATER 50 ML IV SCH (23:00)
[2017-07-03 23:43] LABS: GLUCOSE COMMENT 1 Received Meds; GLUCOSE,POINT OF CARE 191 MG/DL (70-110)
[2017-07-04] VITALS (7 sets, daily range): BP systolic 132–162; BP diastolic 74–82
[2017-07-04] MEDS: TERBINAFINE HCL 1% 30 GM CREAM TP SCH ×3 (00:23→20:22)
[2017-07-04] MEDS: MORPHINE SULFATE 2 MG/ML SYRINGE IVP PRN ×6 (00:24→23:08)
[2017-07-04] MEDS: INSULIN ASPART 100 UNITS/ML SQ PRN ×4 (05:17→20:22)
[2017-07-04 06:17] LABS: GLUCOSE,POINT OF CARE 172 MG/DL (70-110)
[2017-07-04] MEDS ORDERED: MUPIROCIN CALCIUM 2% 22 GM OINTMENT ONE (06:23)
[2017-07-04] MEDS ORDERED: MICROFIBRILLAR COLLAGEN 1 GM PACKAGE TP ONE (06:23)
[2017-07-04] MEDS ORDERED: BUPIVACAINE HCL/PF 0.5% 30 ML VIAL ONE (06:23)
[2017-07-04] MEDS ORDERED: VANCOMYCIN HCL 1 GM/VIAL ONE (06:23)
[2017-07-04] MEDS ORDERED: GUM MASTIC/STORAX/MSAL/ALCOHOL LIQUID 0.67 ML VIAL TP ONE (06:23)
[2017-07-04] MEDS ORDERED: SODIUM CHLORIDE 0.9% 2,000 ML IV ONE (06:23)
[2017-07-04 06:28] LABS: BASOPHILS % (AUTO) 0.4 % (0.0-2.0); HEMATOCRIT 31.2 % (41-53); LYMPHOCYTES # (AUTO) 0.5 K/uL (1.0-4.8); LYMPHOCYTES % (AUTO) 6.3 % (22.0-44.0); MEAN CORPUSCULAR HGB CONC 32.1 G/dL (31.0-37.0); MEAN CORPUSCULAR VOLUME 84 fL (80-100); MONOCYTES # (AUTO) 0.5 K/uL (0.1-1.0); MONOCYTES % (AUTO) 6.2 % (2.0-9.0); NEUTROPHILS # (AUTO) 7.2 K/uL (1.8-7.7); NEUTROPHILS % (AUTO) 84.1 % (40.0-70.0); PLATELET COUNT (AUTO) 290 K/uL (150-450); RED BLOOD CELL COUNT(AUTO) 3.71 MIL/uL (4.50-5.90); RED CELL DISTRIBUTION WIDTH 20.2 % (11.5-14.5); WHITE BLOOD COUNT (AUTO) 8.5 K/uL (4.5-11.0)
[2017-07-04] MEDS ORDERED: BACITRACIN 50,000 UNITS/VIAL ONE (06:43)
[2017-07-04] MEDS ORDERED: SODIUM CHLORIDE 0.9% 0 ML ONE (06:43)
[2017-07-04 07:02] LABS: CALCIUM, TOTAL 8.9 mg/dL (8.8-10.5); CREATININE 5.96 mg/dL (0.60-1.30); MAGNESIUM 2.1 mg/dL (1.80-2.40); PHOSPHORUS 6.4 mg/dL (2.5-4.9)
[2017-07-04] MEDS ORDERED: FentaNYL CITRATE-PF 100 MCG/2 ML VIAL IVP PRN (07:45)
[2017-07-04] MEDS ORDERED: HYDROmorphone 2 MG/ML SYRINGE IVP PRN (07:45)
[2017-07-04] MEDS ORDERED: MEPERIDINE-PF 25 MG/ML SYRINGE IVP PRN (07:45)
[2017-07-04] MEDS ORDERED: ALBUTEROL SULFATE 2.5 MG/0.5 ML NEB SOLUTION NEB PRN (07:45)
[2017-07-04] MEDS ORDERED: HYDROmorphone 2 MG/ML SYRINGE ONE (08:23)
[2017-07-04 08:31] LABS: RBC MORPHOLOGY COMMENT ABNORMAL RBC MORPH
[2017-07-04] MEDS: OXYGEN THERAPY IH SCH (08:54)
[2017-07-04] MEDS: VITAMIN B COMP/VIT C/FOLIC ACID CAPSULE PO SCH (08:54)
[2017-07-04] MEDS: CLOPIDOGREL BISULFATE 75 MG TABLET PO SCH (08:54)
[2017-07-04] MEDS: PANTOPRAZOLE SODIUM 40 MG DR TABLET PO SCH (08:54)
[2017-07-04] MEDS: ASPIRIN 81 MG CHEWABLE TABLET PO SCH (08:54)
[2017-07-04] MEDS: DOCUSATE SODIUM 100 MG CAPSULE PO SCH ×2 (08:54→20:21)
[2017-07-04] MEDS: HEPARIN SODIUM,PORCINE 5,000 UNITS/ML VIAL SQ SCH ×2 (09:01→20:21)
[2017-07-04] MEDS ORDERED: ONDANSETRON HCL 4 MG/2 ML VIAL IVP ONE (12:00)
[2017-07-04] MEDS ORDERED: MIDAZOLAM HCL 2 MG/2 ML VIAL IVP ONE (12:00)
[2017-07-04] MEDS ORDERED: FentaNYL CITRATE-PF 100 MCG/2 ML VIAL IVP ONE (12:00)
[2017-07-04] MEDS ORDERED: PROPOFOL 1% 20 ML VIAL IVP ONE (12:00)
[2017-07-04] MEDS ORDERED: LIDOCAINE HCL/PF 2% 5 ML VIAL INJ ONE (12:00)
[2017-07-04] MEDS: OxyCODONE HCL/ACETAMINOPHEN 5-325 MG TABLET PO PRN ×2 (12:10→20:22)
[2017-07-04] MEDS: EPOETIN ALFA 10,000 UNITS/ML VIAL SQ SCH (12:23)
[2017-07-04] MEDS: SOD FERRIC GLUC COMPLX/SUCROSE 125 MG in SODIUM CHLORIDE 0.9% 100 ML IV SCH (14:13)
[2017-07-04 16:54] LABS: GLUCOSE,POINT OF CARE 201 MG/DL (70-110)
[2017-07-04 18:52] LABS: GLUCOSE COMMENT 1 Received Meds; GLUCOSE,POINT OF CARE 168 MG/DL (70-110)
[2017-07-04] MEDS: ATORVASTATIN CALCIUM 20 MG TABLET PO SCH (20:21)
[2017-07-04 22:28] LABS: GLUCOSE COMMENT 1 Received Meds; GLUCOSE,POINT OF CARE 172 MG/DL (70-110)
[2017-07-04] MEDS: CefTRIAXone SODIUM 2 GM in DEXTROSE 5%-WATER 50 ML IV SCH (23:02)
[2017-07-05] MEDS: MORPHINE SULFATE 2 MG/ML SYRINGE IVP PRN ×4 (03:44→22:03)
[2017-07-05] MEDS: OXYGEN THERAPY IH SCH ×2 (03:52→20:13)
[2017-07-05 05:09] VITALS: BP 143/80
[2017-07-05] MEDS: INSULIN ASPART 100 UNITS/ML SQ PRN ×3 (06:21→20:18)
[2017-07-05 07:23] LABS: GLUCOSE COMMENT 1 Received Meds; GLUCOSE,POINT OF CARE 188 MG/DL (70-110)
[2017-07-05 07:54] VITALS: BP 145/84
[2017-07-05] MEDS: VITAMIN B COMP/VIT C/FOLIC ACID CAPSULE PO SCH (08:41)
[2017-07-05] MEDS: PANTOPRAZOLE SODIUM 40 MG DR TABLET PO SCH (08:41)
[2017-07-05] MEDS: HEPARIN SODIUM,PORCINE 5,000 UNITS/ML VIAL SQ SCH ×2 (08:41→20:12)
[2017-07-05] MEDS: CLOPIDOGREL BISULFATE 75 MG TABLET PO SCH (08:41)
[2017-07-05] MEDS: DOCUSATE SODIUM 100 MG CAPSULE PO SCH ×2 (08:41→20:11)
[2017-07-05] MEDS: ASPIRIN 81 MG CHEWABLE TABLET PO SCH (08:41)
[2017-07-05] MEDS: TERBINAFINE HCL 1% 30 GM CREAM TP SCH ×2 (08:42→20:12)
[2017-07-05 11:25] VITALS: BP 163/82
[2017-07-05 11:53] LABS: GLUCOSE COMMENT 1 Received Meds; GLUCOSE,POINT OF CARE 215 MG/DL (70-110)
[2017-07-05] MEDS: SOD FERRIC GLUC COMPLX/SUCROSE 125 MG in SODIUM CHLORIDE 0.9% 100 ML IV SCH (17:39)
[2017-07-05 19:35] VITALS: BP 146/75
[2017-07-05 19:58] LABS: GLUCOSE COMMENT 1 Received Meds; GLUCOSE,POINT OF CARE 177 MG/DL (70-110)
[2017-07-05] MEDS: ATORVASTATIN CALCIUM 20 MG TABLET PO SCH (20:12)
[2017-07-05] MEDS: OxyCODONE HCL/ACETAMINOPHEN 5-325 MG TABLET PO PRN (20:23)
[2017-07-05 21:02] LABS: GLUCOSE COMMENT 1 Received Meds; GLUCOSE,POINT OF CARE 221 MG/DL (70-110)
[2017-07-05] MEDS ORDERED: VANCOMYCIN HCL 1 GM/D5% WATER 200 ML IV PRN (21:15)
[2017-07-05] MEDS: CefTRIAXone SODIUM 2 GM in DEXTROSE 5%-WATER 50 ML IV SCH (22:00)
[2017-07-06] VITALS (7 sets, daily range): BP systolic 143–155; BP diastolic 72–78
[2017-07-06] MEDS: MORPHINE SULFATE 2 MG/ML SYRINGE IVP PRN ×2 (05:10→19:33)
[2017-07-06] MEDS: INSULIN ASPART 100 UNITS/ML SQ PRN ×4 (05:21→21:25)
[2017-07-06] MEDS: HEPARIN SODIUM,PORCINE 5,000 UNITS/ML VIAL SQ SCH ×2 (08:23→20:42)
[2017-07-06] MEDS: DOCUSATE SODIUM 100 MG CAPSULE PO SCH ×2 (08:23→20:42)
[2017-07-06] MEDS: ASPIRIN 81 MG CHEWABLE TABLET PO SCH (08:23)
[2017-07-06] MEDS: CLOPIDOGREL BISULFATE 75 MG TABLET PO SCH (08:23)
[2017-07-06] MEDS: VITAMIN B COMP/VIT C/FOLIC ACID CAPSULE PO SCH (08:23)
[2017-07-06] MEDS: PANTOPRAZOLE SODIUM 40 MG DR TABLET PO SCH (08:23)
[2017-07-06] MEDS: TERBINAFINE HCL 1% 30 GM CREAM TP SCH ×2 (08:24→20:42)
[2017-07-06] MEDS: OxyCODONE HCL/ACETAMINOPHEN 5-325 MG TABLET PO PRN ×2 (08:27→23:14)
[2017-07-06 08:47] LABS: GLUCOSE,POINT OF CARE 185 MG/DL (70-110)
[2017-07-06] MEDS: SOD FERRIC GLUC COMPLX/SUCROSE 125 MG in SODIUM CHLORIDE 0.9% 100 ML IV SCH (13:56)
[2017-07-06 17:23] LABS: GLUCOSE COMMENT 1 Received Meds; GLUCOSE,POINT OF CARE 345 MG/DL (70-110)
[2017-07-06] MEDS: OXYGEN THERAPY IH SCH ×2 (20:41→23:00)
[2017-07-06] MEDS: ATORVASTATIN CALCIUM 20 MG TABLET PO SCH (20:42)
[2017-07-06] MEDS: LACTOBAC ACID/BULG/BIFID/THERM TABLET PO SCH (22:59)
[2017-07-06] MEDS: CefTRIAXone SODIUM 2 GM in DEXTROSE 5%-WATER 50 ML IV SCH (22:59)
[2017-07-06] MEDS ORDERED: SODIUM CHLORIDE 0.9% 500 ML IV ONE (23:00)
[2017-07-07 01:34] LABS: GLUCOSE COMMENT 1 Received Meds; GLUCOSE,POINT OF CARE 148 MG/DL (70-110)
[2017-07-07 04:00] VITALS: BP 154/81
[2017-07-07] MEDS: MORPHINE SULFATE 2 MG/ML SYRINGE IVP PRN ×3 (05:53→20:23)
[2017-07-07] MEDS: INSULIN ASPART 100 UNITS/ML SQ PRN ×4 (05:59→20:53)
[2017-07-07] MEDS ORDERED: VANCOMYCIN HCL 1 GM/D5% WATER 200 ML IV ONE (06:00)
[2017-07-07 06:12] LABS: GLUCOSE COMMENT 1 Received Meds; GLUCOSE,POINT OF CARE 216 MG/DL (70-110)
[2017-07-07 07:14] LABS: BASOPHILS % (AUTO) 0.3 % (0.0-2.0); EOSINOPHILS % (AUTO) 2.6 % (1.0-6.0); HEMATOCRIT 31.7 % (41-53); HEMOGLOBIN 10.1 g/dL (13.5-17.5); LYMPHOCYTES # (AUTO) 1.2 K/uL (1.0-4.8); LYMPHOCYTES % (AUTO) 13.7 % (22.0-44.0); MEAN CORPUSCULAR HEMOGLOBIN 26.8 pg (26.0-34.0); MEAN CORPUSCULAR HGB CONC 31.8 G/dL (31.0-37.0); MEAN CORPUSCULAR VOLUME 84 fL (80-100); MONOCYTES # (AUTO) 0.6 K/uL (0.1-1.0); MONOCYTES % (AUTO) 6.8 % (2.0-9.0); NEUTROPHILS # (AUTO) 6.8 K/uL (1.8-7.7); NEUTROPHILS % (AUTO) 76.6 % (40.0-70.0); PLATELET COUNT (AUTO) 305 K/uL (150-450); RED BLOOD CELL COUNT(AUTO) 3.76 MIL/uL (4.50-5.90); WHITE BLOOD COUNT (AUTO) 8.8 K/uL (4.5-11.0)
[2017-07-07 07:19] LABS: RBC MORPHOLOGY COMMENT ABNORMAL RBC MORPH
[2017-07-07 07:35] LABS: ALBUMIN 2.8 g/dL (3.4-5.0); BILIRUBIN,TOTAL 0.5 mg/dL (0.1-1.0); CALCIUM, TOTAL 8.9 mg/dL (8.8-10.5); CREATININE 7.22 mg/dL (0.60-1.30); POTASSIUM 4.9 mmol/L (3.5-5.1); TOTAL PROTEIN, SERUM 7.8 g/dL (6.4-8.2)
[2017-07-07 07:51] VITALS: BP 142/77
[2017-07-07] MEDS: DOCUSATE SODIUM 100 MG CAPSULE PO SCH ×2 (07:58→20:29)
[2017-07-07] MEDS: FAMOTIDINE 20 MG TABLET PO SCH (07:59)
[2017-07-07] MEDS: LACTOBAC ACID/BULG/BIFID/THERM TABLET PO SCH ×3 (07:59→20:28)
[2017-07-07] MEDS: OxyCODONE HCL/ACETAMINOPHEN 5-325 MG TABLET PO PRN ×2 (07:59→16:04)
[2017-07-07] MEDS: ASPIRIN 81 MG CHEWABLE TABLET PO SCH (07:59)
[2017-07-07] MEDS: VITAMIN B COMP/VIT C/FOLIC ACID CAPSULE PO SCH (07:59)
[2017-07-07] MEDS: CLOPIDOGREL BISULFATE 75 MG TABLET PO SCH (07:59)
[2017-07-07] MEDS: TERBINAFINE HCL 1% 30 GM CREAM TP SCH ×2 (08:00→20:29)
[2017-07-07] MEDS: HEPARIN SODIUM,PORCINE 5,000 UNITS/ML VIAL SQ SCH ×2 (08:01→20:29)
[2017-07-07] MEDS: EPOETIN ALFA 10,000 UNITS/ML VIAL SQ SCH (08:02)
[2017-07-07 11:23] LABS: GLUCOSE COMMENT 1 Received Meds; GLUCOSE,POINT OF CARE 197 MG/DL (70-110)
[2017-07-07 11:30] VITALS: BP 143/76
[2017-07-07] MEDS: SOD FERRIC GLUC COMPLX/SUCROSE 125 MG in SODIUM CHLORIDE 0.9% 100 ML IV SCH (13:26)
[2017-07-07] MEDS ORDERED: WATER FOR IRRIGATION,STERILE 1000 ML SOLUTION BOTTLE ONE (16:01)
[2017-07-07 16:03] VITALS: BP 152/80
[2017-07-07 18:07] LABS: GLUCOSE COMMENT 1 Received Meds; GLUCOSE,POINT OF CARE 216 MG/DL (70-110)
[2017-07-07 19:36] VITALS: BP 142/72
[2017-07-07] MEDS: ATORVASTATIN CALCIUM 20 MG TABLET PO SCH (20:29)
[2017-07-07] MEDS: CefTRIAXone SODIUM 2 GM in DEXTROSE 5%-WATER 50 ML IV SCH (23:11)
[2017-07-07 23:41] VITALS: BP 148/81
[2017-07-08 01:28] LABS: GLUCOSE COMMENT 1 Received Meds; GLUCOSE,POINT OF CARE 194 MG/DL (70-110)
[2017-07-08 03:30] VITALS: BP 152/84
[2017-07-08] MEDS: INSULIN ASPART 100 UNITS/ML SQ PRN ×3 (05:59→21:57)
[2017-07-08] MEDS: MORPHINE SULFATE 2 MG/ML SYRINGE IVP PRN (06:00)
[2017-07-08 06:57] LABS: GLUCOSE COMMENT 1 Received Meds; GLUCOSE,POINT OF CARE 190 MG/DL (70-110)
[2017-07-08 07:12] VITALS: BP 156/80
[2017-07-08 08:19] LABS: BASOPHILS % (AUTO) 0.1 % (0.0-2.0); EOSINOPHILS % (AUTO) 2.2 % (1.0-6.0); HEMATOCRIT 30.2 % (41-53); HEMOGLOBIN 9.7 g/dL (13.5-17.5); LYMPHOCYTES # (AUTO) 0.9 K/uL (1.0-4.8); LYMPHOCYTES % (AUTO) 9.5 % (22.0-44.0); MEAN CORPUSCULAR HEMOGLOBIN 27.3 pg (26.0-34.0); MEAN CORPUSCULAR HGB CONC 32.2 G/dL (31.0-37.0); MEAN CORPUSCULAR VOLUME 85 fL (80-100); MONOCYTES # (AUTO) 0.7 K/uL (0.1-1.0); MONOCYTES % (AUTO) 7.5 % (2.0-9.0); NEUTROPHILS % (AUTO) 80.7 % (40.0-70.0); PLATELET COUNT (AUTO) 309 K/uL (150-450); RED BLOOD CELL COUNT(AUTO) 3.56 MIL/uL (4.50-5.90); RED CELL DISTRIBUTION WIDTH 20.9 % (11.5-14.5); WHITE BLOOD COUNT (AUTO) 9.9 K/uL (4.5-11.0)
[2017-07-08 08:32] LABS: CALCIUM, TOTAL 9.2 mg/dL (8.8-10.5); CREATININE 8.31 mg/dL (0.60-1.30); POTASSIUM 5.5 mmol/L (3.5-5.1)
[2017-07-08] MEDS: TERBINAFINE HCL 1% 30 GM CREAM TP SCH ×2 (09:00→21:45)
[2017-07-08] MEDS: LACTOBAC ACID/BULG/BIFID/THERM TABLET PO SCH ×3 (09:00→20:01)
[2017-07-08] MEDS: OXYGEN THERAPY IH SCH ×2 (09:29→20:05)
[2017-07-08] MEDS: OxyCODONE HCL/ACETAMINOPHEN 5-325 MG TABLET PO PRN ×3 (09:30→21:58)
[2017-07-08] MEDS: ASPIRIN 81 MG CHEWABLE TABLET PO SCH (09:30)
[2017-07-08] MEDS: HEPARIN SODIUM,PORCINE 5,000 UNITS/ML VIAL SQ SCH ×2 (09:30→20:02)
[2017-07-08] MEDS: VITAMIN B COMP/VIT C/FOLIC ACID CAPSULE PO SCH (09:30)
[2017-07-08] MEDS: CLOPIDOGREL BISULFATE 75 MG TABLET PO SCH (09:31)
[2017-07-08] MEDS: FAMOTIDINE 20 MG TABLET PO SCH (09:31)
[2017-07-08] MEDS: DOCUSATE SODIUM 100 MG CAPSULE PO SCH ×2 (09:31→20:01)
[2017-07-08 09:39] LABS: RBC MORPHOLOGY COMMENT ABNORMAL RBC MORPH
[2017-07-08 11:16] VITALS: BP 162/86
[2017-07-08 11:48] LABS: GLUCOSE,POINT OF CARE 146 MG/DL (70-110)
[2017-07-08 14:23] VITALS: BP 134/82
[2017-07-08] MEDS: SOD FERRIC GLUC COMPLX/SUCROSE 125 MG in SODIUM CHLORIDE 0.9% 100 ML IV SCH (15:41)
[2017-07-08 15:42] VITALS: BP 144/72
[2017-07-08 18:22] LABS: GLUCOSE COMMENT 1 Received Meds; GLUCOSE,POINT OF CARE 229 MG/DL (70-110)
[2017-07-08] MEDS: ATORVASTATIN CALCIUM 20 MG TABLET PO SCH (20:01)
[2017-07-08 20:19] VITALS: BP 138/69
[2017-07-08] MEDS: CefTRIAXone SODIUM 2 GM in DEXTROSE 5%-WATER 50 ML IV SCH (21:46)
[2017-07-09 00:19] VITALS: BP 151/74
[2017-07-09 03:30] VITALS: BP 153/79
[2017-07-09 04:26] LABS: GLUCOSE COMMENT 1 Juice/Food/D50 Given; GLUCOSE,POINT OF CARE 226 MG/DL (70-110)
[2017-07-09] MEDS: INSULIN ASPART 100 UNITS/ML SQ PRN ×3 (06:35→17:39)
[2017-07-09] MEDS: OxyCODONE HCL/ACETAMINOPHEN 5-325 MG TABLET PO PRN (06:36)
[2017-07-09 07:07] LABS: GLUCOSE COMMENT 1 Juice/Food/D50 Given; GLUCOSE,POINT OF CARE 193 MG/DL (70-110)
[2017-07-09 07:38] VITALS: BP 157/76
[2017-07-09 07:45] LABS: BASOPHILS # (AUTO) 0.01 K/uL (0.00-0.20); BASOPHILS % (AUTO) 0.1 % (0.0-2.0); EOSINOPHILS # (AUTO) 0.15 K/uL (0.00-0.70); EOSINOPHILS % (AUTO) 1.68 % (1.0-6.0); HEMATOCRIT 29.9 % (41-53); HEMOGLOBIN 9.3 g/dL (13.5-17.5); LYMPHOCYTES # (AUTO) 0.9 K/uL (1.0-4.8); LYMPHOCYTES % (AUTO) 10.2 % (22.0-44.0); MEAN CORPUSCULAR HEMOGLOBIN 26.7 pg (26.0-34.0); MEAN CORPUSCULAR HGB CONC 31.2 G/dL (31.0-37.0); MEAN CORPUSCULAR VOLUME 85 fL (80-100); MONOCYTES # (AUTO) 0.7 K/uL (0.1-1.0); MONOCYTES % (AUTO) 7.7 % (2.0-9.0); NEUTROPHILS # (AUTO) 7.3 K/uL (1.8-7.7); NEUTROPHILS % (AUTO) 80.3 % (40.0-70.0); PLATELET COUNT (AUTO) 288 K/uL (150-450); RED CELL DISTRIBUTION WIDTH 20.9 % (11.5-14.5); WHITE BLOOD COUNT (AUTO) 9.1 K/uL (4.5-11.0)
[2017-07-09 07:51] LABS: RBC MORPHOLOGY COMMENT ABNORMAL RBC MORPH
[2017-07-09 07:54] LABS: CALCIUM, TOTAL 8.8 mg/dL (8.8-10.5); CREATININE 5.86 mg/dL (0.60-1.30); MAGNESIUM 2.2 mg/dL (1.80-2.40); PHOSPHORUS 5.6 mg/dL (2.5-4.9); POTASSIUM 4.5 mmol/L (3.5-5.1)
[2017-07-09] MEDS: CLOPIDOGREL BISULFATE 75 MG TABLET PO SCH (08:56)
[2017-07-09] MEDS: DOCUSATE SODIUM 100 MG CAPSULE PO SCH (08:56)
[2017-07-09] MEDS: LACTOBAC ACID/BULG/BIFID/THERM TABLET PO SCH ×2 (08:56→15:57)
[2017-07-09] MEDS: HEPARIN SODIUM,PORCINE 5,000 UNITS/ML VIAL SQ SCH (08:56)
[2017-07-09] MEDS: FAMOTIDINE 20 MG TABLET PO SCH (08:56)
[2017-07-09] MEDS: EPOETIN ALFA 10,000 UNITS/ML VIAL SQ SCH (08:56)
[2017-07-09] MEDS: ASPIRIN 81 MG CHEWABLE TABLET PO SCH (08:56)
[2017-07-09] MEDS: VITAMIN B COMP/VIT C/FOLIC ACID CAPSULE PO SCH (08:56)
[2017-07-09] MEDS: OXYGEN THERAPY IH SCH (08:57)
[2017-07-09] MEDS: TERBINAFINE HCL 1% 30 GM CREAM TP SCH (08:57)
[2017-07-09 11:32] VITALS: BP 142/56
[2017-07-09] MEDS: CALCIUM ACETATE 667 MG CAPSULE PO SCH ×2 (11:49→18:00)
[2017-07-09 11:53] LABS: GLUCOSE COMMENT 1 Received Meds; GLUCOSE,POINT OF CARE 272 MG/DL (70-110)
[2017-07-09] MEDS: SOD FERRIC GLUC COMPLX/SUCROSE 125 MG in SODIUM CHLORIDE 0.9% 100 ML IV SCH (14:40)
[2017-07-09 15:45] VITALS: BP 142/72
[2017-07-09] MEDS ORDERED: VANCOMYCIN HCL 1 GM/D5% WATER 200 ML IV PRN (17:15)
[2017-07-09 17:22] LABS: GLUCOSE COMMENT 1 Received Meds; GLUCOSE,POINT OF CARE 184 MG/DL (70-110)
[2017-07-09] MEDS ORDERED: VANCOMYCIN HCL 1.5 GM in DEXTROSE 5%-WATER 250 ML IV ONE (17:30)
[2017-07-09] MEDS ORDERED: AMOX500T2 PO (17:45)
[2017-07-09] MEDS ORDERED: AMOXICILLIN TRIHYDRATE 500 MG CAPSULE PO SCH (21:00)
== END 2017-07-09 20:25 | disposition home or self-care (01) | DRG 579 ==
LOC: EMS 10:25 → 6N 13:47
PROVIDERS: ADMIT Internal Medicine; ATTEND Internal Medicine
PROC: 5A1D70Z Performance of Urinary Filtration, Intermittent, Less than 6 Hours Per Day (ICD-10-PCS; 2017-07-02)
PROC: 0PBV0ZZ Excision of Left Finger Phalanx, Open Approach (ICD-10-PCS; 2017-07-04)
PROC: 2W1 Placement, Anatomical Regions, Compression (ICD-10-PCS; 2017-07-04)
PROC: 5A1D70Z Performance of Urinary Filtration, Intermittent, Less than 6 Hours Per Day (ICD-10-PCS; 2017-07-05)
PROC: 0X6R0Z2 Detachment at Left Middle Finger, Mid, Open Approach (ICD-10-PCS; principal; 2017-07-07)
PROC: 5A1D70Z Performance of Urinary Filtration, Intermittent, Less than 6 Hours Per Day (ICD-10-PCS; 2017-07-08)
DX: L03.012 Cellulitis of left finger (principal); N18.6 End stage renal disease; I13.2 Hypertensive heart and chronic kidney disease with heart failure and with stage 5 chronic kidney disease, or end stage renal disease; E11.22 Type 2 diabetes mellitus with diabetic chronic kidney disease; E11.51 Type 2 diabetes mellitus with diabetic peripheral angiopathy without gangrene; E83.39 Other disorders of phosphorus metabolism; I42.9 Cardiomyopathy, unspecified; M86.9 Osteomyelitis, unspecified; E11.69 Type 2 diabetes mellitus with other specified complication; E11.621 Type 2 diabetes mellitus with foot ulcer; E11.65 Type 2 diabetes mellitus with hyperglycemia; R19.7 Diarrhea, unspecified; B95.62 Methicillin resistant Staphylococcus aureus infection as the cause of diseases classified elsewhere; F17.210 Nicotine dependence, cigarettes, uncomplicated; E87.5 Hyperkalemia; J44.9 Chronic obstructive pulmonary disease, unspecified; E78.00 Pure hypercholesterolemia, unspecified; D63.8 Anemia in other chronic diseases classified elsewhere; G47.33 Obstructive sleep apnea (adult) (pediatric); I50.9 Heart failure, unspecified; R70.0 Elevated erythrocyte sedimentation rate; E66.9 Obesity, unspecified; I25.10 Atherosclerotic heart disease of native coronary artery without angina pectoris; Z83.3 Family history of diabetes mellitus; Z82.49 Family history of ischemic heart disease and other diseases of the circulatory system; Z84.89 Family history of other specified conditions; Z79.4 Long term (current) use of insulin; Z79.899 Other long term (current) drug therapy; Z99.2 Dependence on renal dialysis; Z79.02 Long term (current) use of antithrombotics/antiplatelets; Z79.82 Long term (current) use of aspirin; Z91.19 Patient's noncompliance with other medical treatment and regimen; Z68.34 Body mass index [BMI] 34.0-34.9, adult
CPT/HCPCS: 73218; 82962; 83540; 83550; 83735; 84100; 85651; 86140; 87040; 87070; 87081; 87205; 87340; 88305; 88311; 88312; 90935; 96365; 96375; 99285; J0696; J0885; J1170; J1644; J2250; J2270; J2405; J2543; J2704; J2916; J3010; J3370; J3490; J7030; J7040; J7050; J7060

== ENCOUNTER → 2017-08-06 | Outpatient (CLI) | payer MEDICARE ==
[~2017-08-06] MED LIST changes: +AMOX500T2 PO
[2017-08-06 11:34] LABS: BASOPHILS % (AUTO) 1.1 % (0.0-2.0); EOSINOPHILS % (AUTO) 2.2 % (1.0-6.0); HEMATOCRIT 36.5 % (41-53); HEMOGLOBIN 11.7 g/dL (13.5-17.5); LYMPHOCYTES # (AUTO) 0.6 K/uL (1.0-4.8); LYMPHOCYTES % (AUTO) 6.4 % (22.0-44.0); MEAN CORPUSCULAR HEMOGLOBIN 27.4 pg (26.0-34.0); MEAN CORPUSCULAR HGB CONC 31.9 G/dL (31.0-37.0); MEAN CORPUSCULAR VOLUME 86 fL (80-100); MONOCYTES # (AUTO) 0.5 K/uL (0.1-1.0); MONOCYTES % (AUTO) 4.8 % (2.0-9.0); NEUTROPHILS # (AUTO) 8.2 K/uL (1.8-7.7); PLATELET COUNT (AUTO) 266 K/uL (150-450); RED BLOOD CELL COUNT(AUTO) 4.26 MIL/uL (4.50-5.90); RED CELL DISTRIBUTION WIDTH 21.9 % (11.5-14.5); WHITE BLOOD COUNT (AUTO) 9.6 K/uL (4.5-11.0)
[2017-08-06 11:45] LABS: NEUTROPHILS % (AUTO) 85.5 % (40.0-70.0)
[2017-08-06 12:12] LABS: RBC MORPHOLOGY COMMENT ABNORMAL RBC MORPH
[2017-08-06 14:13] LABS: ERYTHROCYTE SEDIMENTATION RATE 85 MM/HR (0-15)
== END | disposition home or self-care (01) ==
LOC: LABPV 11:04
PROVIDERS: ATTEND Orthopaedic Surgery
DX: B99.8 Other infectious disease (principal)
CPT/HCPCS: 85651; 86140

== ENCOUNTER → 2017-10-14 | Outpatient (CLI) | payer MEDICARE, MEDICAID ==
[~2017-10-14] VITALS: Ht 175.3 cm; Wt 96.0 kg
[~2017-10-14] MED LIST changes: +ALBU8.5H8 IH; +ASPI-1182 PO; +INSLAN SQ; +LISI-661 PO; +OXYC10 PO
[2017-10-14 07:59] VITALS: BP 146/56
== END | disposition home or self-care (01) ==
LOC: HBOWC 07:48
PROVIDERS: ATTEND Emergency Medicine
DX: S91.301D Unspecified open wound, right foot, subsequent encounter (principal); E11.22 Type 2 diabetes mellitus with diabetic chronic kidney disease; I13.2 Hypertensive heart and chronic kidney disease with heart failure and with stage 5 chronic kidney disease, or end stage renal disease; I50.9 Heart failure, unspecified; N18.6 End stage renal disease; I25.10 Atherosclerotic heart disease of native coronary artery without angina pectoris; I42.9 Cardiomyopathy, unspecified; E66.9 Obesity, unspecified; F17.210 Nicotine dependence, cigarettes, uncomplicated; G47.30 Sleep apnea, unspecified; E78.00 Pure hypercholesterolemia, unspecified; E11.65 Type 2 diabetes mellitus with hyperglycemia; E11.51 Type 2 diabetes mellitus with diabetic peripheral angiopathy without gangrene; Z99.2 Dependence on renal dialysis; X58.XXXD Exposure to other specified factors, subsequent encounter
CPT/HCPCS: 11042; 87070; 87205

== ENCOUNTER → 2017-10-21 | Outpatient (CLI) | payer MEDICARE, MEDICAID ==
[~2017-10-21] MED LIST changes: -AMLO10TA55 PO; -AMOX500T2 PO; -CARV6 PO; +CHLORHEXIDINE GLUCONATE 4% 118 ML TOPICAL LIQUID TP ONE; -CLOP75 PO; -COMP5 PO; -DULO20CA30 PO; +LIDOCAINE HCL 2% 5 ML JELLY TP ONE; -METO25TA3 PO; -PETR454O TP
[2017-10-21 08:23] VITALS: BP 150/54
== END | disposition home or self-care (01) ==
LOC: HBOWC 08:04
PROVIDERS: ATTEND Emergency Medicine
DX: S91.301D Unspecified open wound, right foot, subsequent encounter (principal); E11.610 Type 2 diabetes mellitus with diabetic neuropathic arthropathy; E11.51 Type 2 diabetes mellitus with diabetic peripheral angiopathy without gangrene; I25.10 Atherosclerotic heart disease of native coronary artery without angina pectoris; E11.22 Type 2 diabetes mellitus with diabetic chronic kidney disease; I13.2 Hypertensive heart and chronic kidney disease with heart failure and with stage 5 chronic kidney disease, or end stage renal disease; N18.6 End stage renal disease; I50.9 Heart failure, unspecified; E78.00 Pure hypercholesterolemia, unspecified; E66.9 Obesity, unspecified; G47.30 Sleep apnea, unspecified; F17.210 Nicotine dependence, cigarettes, uncomplicated; Z99.2 Dependence on renal dialysis; X58.XXXD Exposure to other specified factors, subsequent encounter
CPT/HCPCS: 11042

== ENCOUNTER → 2017-10-27 | Outpatient (CLI) | payer MEDICARE, MEDICAID ==
[~2017-10-27] MED LIST changes: -CHLORHEXIDINE GLUCONATE 4% 118 ML TOPICAL LIQUID TP ONE
[2017-10-27 08:28] VITALS: BP 128/64
== END | disposition home or self-care (01) ==
LOC: HBOWC 07:54
PROVIDERS: ATTEND Surgery Plastic and Reconstructive Surgery
DX: E11.621 Type 2 diabetes mellitus with foot ulcer (principal); L97.511 Non-pressure chronic ulcer of other part of right foot limited to breakdown of skin; E11.610 Type 2 diabetes mellitus with diabetic neuropathic arthropathy; E11.51 Type 2 diabetes mellitus with diabetic peripheral angiopathy without gangrene; I25.10 Atherosclerotic heart disease of native coronary artery without angina pectoris; E11.22 Type 2 diabetes mellitus with diabetic chronic kidney disease; I13.2 Hypertensive heart and chronic kidney disease with heart failure and with stage 5 chronic kidney disease, or end stage renal disease; N18.6 End stage renal disease; I50.9 Heart failure, unspecified; E66.9 Obesity, unspecified; E78.00 Pure hypercholesterolemia, unspecified; G47.30 Sleep apnea, unspecified; F17.210 Nicotine dependence, cigarettes, uncomplicated; Z99.2 Dependence on renal dialysis
CPT/HCPCS: 11042

== ENCOUNTER → 2017-11-06 | Outpatient (CLI) | payer MEDICARE, MEDICAID ==
[~2017-11-06] MED LIST changes: -LIDOCAINE HCL 2% 5 ML JELLY TP ONE
[2017-11-06 12:27] LABS: BASOPHILS % (AUTO) 0.5 % (0.0-2.0); EOSINOPHILS % (AUTO) 2.5 % (1.0-6.0); HEMATOCRIT 37.9 % (41-53); HEMOGLOBIN 12.2 g/dL (13.5-17.5); LYMPHOCYTES % (AUTO) 11.1 % (22.0-44.0); MEAN CORPUSCULAR HEMOGLOBIN 28.9 pg (26.0-34.0); MEAN CORPUSCULAR HGB CONC 32.3 G/dL (31.0-37.0); MEAN CORPUSCULAR VOLUME 90 fL (80-100); MONOCYTES # (AUTO) 0.5 K/uL (0.1-1.0); MONOCYTES % (AUTO) 5.4 % (2.0-9.0); NEUTROPHILS # (AUTO) 7.1 K/uL (1.8-7.7); NEUTROPHILS % (AUTO) 80.5 % (40.0-70.0); PLATELET COUNT (AUTO) 281 K/uL (150-450); RED BLOOD CELL COUNT(AUTO) 4.23 MIL/uL (4.50-5.90); RED CELL DISTRIBUTION WIDTH 20.4 % (11.5-14.5)
[2017-11-06 13:30] LABS: ERYTHROCYTE SEDIMENTATION RATE 60 MM/HR (0-15)
== END | disposition home or self-care (01) ==
LOC: LABPV 09:41
PROVIDERS: ATTEND Orthopaedic Surgery
DX: L02.512 Cutaneous abscess of left hand (principal)
CPT/HCPCS: 85651; 86140

== ENCOUNTER → 2017-11-11 | Outpatient (CLI) | payer MEDICARE, MEDICAID ==
[~2017-11-11] MED LIST changes: +LIDOCAINE HCL 2% 5 ML JELLY TP ONE
[2017-11-11 08:55] VITALS: BP 133/57
== END | disposition home or self-care (01) ==
LOC: HBOWC 08:44
PROVIDERS: ATTEND Emergency Medicine
DX: T87.89 Other complications of amputation stump (principal); T81.89XD Other complications of procedures, not elsewhere classified, subsequent encounter; E11.622 Type 2 diabetes mellitus with other skin ulcer; L97.821 Non-pressure chronic ulcer of other part of left lower leg limited to breakdown of skin; S91.301D Unspecified open wound, right foot, subsequent encounter; E11.22 Type 2 diabetes mellitus with diabetic chronic kidney disease; I13.2 Hypertensive heart and chronic kidney disease with heart failure and with stage 5 chronic kidney disease, or end stage renal disease; N18.6 End stage renal disease; I50.9 Heart failure, unspecified; E11.610 Type 2 diabetes mellitus with diabetic neuropathic arthropathy; E11.51 Type 2 diabetes mellitus with diabetic peripheral angiopathy without gangrene; I25.10 Atherosclerotic heart disease of native coronary artery without angina pectoris; E78.00 Pure hypercholesterolemia, unspecified; G47.30 Sleep apnea, unspecified; E66.9 Obesity, unspecified; F17.210 Nicotine dependence, cigarettes, uncomplicated; Z89.422 Acquired absence of other left toe(s); Z99.2 Dependence on renal dialysis; Z79.4 Long term (current) use of insulin; X58.XXXD Exposure to other specified factors, subsequent encounter; Y83.5 Amputation of limb(s) as the cause of abnormal reaction of the patient, or of later complication, without mention of misadventure at the time of the procedure
CPT/HCPCS: 11042

== ENCOUNTER → 2017-11-17 | Outpatient (CLI) | payer MEDICARE, MEDICAID ==
[~2017-11-17] MED LIST changes: -LIDOCAINE HCL 2% 5 ML JELLY TP ONE
[2017-11-17 08:58] VITALS: BP 131/57
== END | disposition home or self-care (01) ==
LOC: HBOWC 08:50
PROVIDERS: ATTEND Surgery Plastic and Reconstructive Surgery
DX: T87.89 Other complications of amputation stump (principal); S91.301D Unspecified open wound, right foot, subsequent encounter; I25.10 Atherosclerotic heart disease of native coronary artery without angina pectoris; E11.22 Type 2 diabetes mellitus with diabetic chronic kidney disease; I13.2 Hypertensive heart and chronic kidney disease with heart failure and with stage 5 chronic kidney disease, or end stage renal disease; N18.6 End stage renal disease; I50.9 Heart failure, unspecified; E66.9 Obesity, unspecified; E78.00 Pure hypercholesterolemia, unspecified; G47.30 Sleep apnea, unspecified; E11.610 Type 2 diabetes mellitus with diabetic neuropathic arthropathy; E11.51 Type 2 diabetes mellitus with diabetic peripheral angiopathy without gangrene; F17.210 Nicotine dependence, cigarettes, uncomplicated; Z99.2 Dependence on renal dialysis; Z79.4 Long term (current) use of insulin; Y83.5 Amputation of limb(s) as the cause of abnormal reaction of the patient, or of later complication, without mention of misadventure at the time of the procedure
CPT/HCPCS: 11042; 11043; 11044

== ENCOUNTER → 2017-11-24 | Outpatient (CLI) | payer MEDICARE, MEDICAID ==
[2017-11-24 08:50] VITALS: BP 142/57
== END | disposition home or self-care (01) ==
LOC: HBOWC 08:34
PROVIDERS: ATTEND Surgery Plastic and Reconstructive Surgery
DX: T87.89 Other complications of amputation stump (principal); S61.203D Unspecified open wound of left middle finger without damage to nail, subsequent encounter; I25.10 Atherosclerotic heart disease of native coronary artery without angina pectoris; E11.22 Type 2 diabetes mellitus with diabetic chronic kidney disease; I13.2 Hypertensive heart and chronic kidney disease with heart failure and with stage 5 chronic kidney disease, or end stage renal disease; N18.6 End stage renal disease; I50.9 Heart failure, unspecified; E66.9 Obesity, unspecified; E78.00 Pure hypercholesterolemia, unspecified; G47.30 Sleep apnea, unspecified; E11.610 Type 2 diabetes mellitus with diabetic neuropathic arthropathy; E11.51 Type 2 diabetes mellitus with diabetic peripheral angiopathy without gangrene; Z99.2 Dependence on renal dialysis; Z79.4 Long term (current) use of insulin; Z89.422 Acquired absence of other left toe(s); Y83.5 Amputation of limb(s) as the cause of abnormal reaction of the patient, or of later complication, without mention of misadventure at the time of the procedure
CPT/HCPCS: 11042

== ENCOUNTER → 2017-12-01 | Outpatient (CLI) | payer MEDICARE, MEDICAID ==
[~2017-12-01] MED LIST changes: +LIDOCAINE HCL 2% 5 ML JELLY TP ONE
[2017-12-01 08:58] VITALS: BP 148/57
== END | disposition home or self-care (01) ==
LOC: HBOWC 08:34
PROVIDERS: ATTEND Surgery Plastic and Reconstructive Surgery
DX: T87.89 Other complications of amputation stump (principal); S91.301D Unspecified open wound, right foot, subsequent encounter; S80.811D Abrasion, right lower leg, subsequent encounter; I25.10 Atherosclerotic heart disease of native coronary artery without angina pectoris; E11.22 Type 2 diabetes mellitus with diabetic chronic kidney disease; I13.2 Hypertensive heart and chronic kidney disease with heart failure and with stage 5 chronic kidney disease, or end stage renal disease; N18.6 End stage renal disease; I50.9 Heart failure, unspecified; Z99.2 Dependence on renal dialysis; E66.9 Obesity, unspecified; E78.00 Pure hypercholesterolemia, unspecified; G47.30 Sleep apnea, unspecified; E11.610 Type 2 diabetes mellitus with diabetic neuropathic arthropathy; E11.51 Type 2 diabetes mellitus with diabetic peripheral angiopathy without gangrene; F17.210 Nicotine dependence, cigarettes, uncomplicated; Z89.422 Acquired absence of other left toe(s); X58.XXXD Exposure to other specified factors, subsequent encounter; Y83.5 Amputation of limb(s) as the cause of abnormal reaction of the patient, or of later complication, without mention of misadventure at the time of the procedure; Z79.4 Long term (current) use of insulin
CPT/HCPCS: 11042; 11043; 11044

== ENCOUNTER → 2017-12-15 | Outpatient (CLI) | payer MEDICARE, MEDICAID ==
[~2017-12-15] MED LIST changes: +OXYC10IR PO
[2017-12-15 08:56] VITALS: BP 143/62
== END | disposition home or self-care (01) ==
LOC: HBOWC 08:35
PROVIDERS: ATTEND Surgery Plastic and Reconstructive Surgery
DX: T87.89 Other complications of amputation stump (principal); S91.301D Unspecified open wound, right foot, subsequent encounter; S81.801D Unspecified open wound, right lower leg, subsequent encounter; E11.610 Type 2 diabetes mellitus with diabetic neuropathic arthropathy; E11.51 Type 2 diabetes mellitus with diabetic peripheral angiopathy without gangrene; E11.22 Type 2 diabetes mellitus with diabetic chronic kidney disease; I13.2 Hypertensive heart and chronic kidney disease with heart failure and with stage 5 chronic kidney disease, or end stage renal disease; N18.5 Chronic kidney disease, stage 5; I50.9 Heart failure, unspecified; E66.9 Obesity, unspecified; F17.210 Nicotine dependence, cigarettes, uncomplicated; E78.00 Pure hypercholesterolemia, unspecified; G47.30 Sleep apnea, unspecified; Z79.4 Long term (current) use of insulin; Z99.2 Dependence on renal dialysis; Z89.422 Acquired absence of other left toe(s); X58.XXXD Exposure to other specified factors, subsequent encounter; Y83.5 Amputation of limb(s) as the cause of abnormal reaction of the patient, or of later complication, without mention of misadventure at the time of the procedure
CPT/HCPCS: 11043; 11044

== ENCOUNTER → 2017-12-22 | Outpatient (CLI) | payer MEDICARE, MEDICAID ==
[2017-12-22 10:38] VITALS: BP 147/60
== END | disposition home or self-care (01) ==
LOC: HBOWC 08:41
PROVIDERS: ATTEND Surgery Plastic and Reconstructive Surgery
DX: T87.89 Other complications of amputation stump (principal); S91.301D Unspecified open wound, right foot, subsequent encounter; S81.801D Unspecified open wound, right lower leg, subsequent encounter; E11.610 Type 2 diabetes mellitus with diabetic neuropathic arthropathy; E11.51 Type 2 diabetes mellitus with diabetic peripheral angiopathy without gangrene; E11.22 Type 2 diabetes mellitus with diabetic chronic kidney disease; I13.2 Hypertensive heart and chronic kidney disease with heart failure and with stage 5 chronic kidney disease, or end stage renal disease; N18.5 Chronic kidney disease, stage 5; I50.9 Heart failure, unspecified; E66.9 Obesity, unspecified; E78.00 Pure hypercholesterolemia, unspecified; G47.30 Sleep apnea, unspecified; F17.210 Nicotine dependence, cigarettes, uncomplicated; Z79.4 Long term (current) use of insulin; Z99.2 Dependence on renal dialysis; Z89.422 Acquired absence of other left toe(s); X58.XXXD Exposure to other specified factors, subsequent encounter; Y83.5 Amputation of limb(s) as the cause of abnormal reaction of the patient, or of later complication, without mention of misadventure at the time of the procedure
CPT/HCPCS: 11043; 11044

== ENCOUNTER → 2018-01-06 | Outpatient (CLI) | payer MEDICARE, MEDICAID ==
[~2018-01-06] MED LIST changes: -LIDOCAINE HCL 2% 5 ML JELLY TP ONE; -OXYC10IR PO
[2018-01-06 08:50] VITALS: BP 124/65
== END | disposition home or self-care (01) ==
LOC: HBOWC 07:57
PROVIDERS: ATTEND Emergency Medicine
DX: T87.89 Other complications of amputation stump (principal); S91.301D Unspecified open wound, right foot, subsequent encounter; E11.610 Type 2 diabetes mellitus with diabetic neuropathic arthropathy; E11.51 Type 2 diabetes mellitus with diabetic peripheral angiopathy without gangrene; E66.9 Obesity, unspecified; E78.00 Pure hypercholesterolemia, unspecified; G47.30 Sleep apnea, unspecified; E11.22 Type 2 diabetes mellitus with diabetic chronic kidney disease; I13.2 Hypertensive heart and chronic kidney disease with heart failure and with stage 5 chronic kidney disease, or end stage renal disease; N18.6 End stage renal disease; I50.9 Heart failure, unspecified; F17.210 Nicotine dependence, cigarettes, uncomplicated; Z89.422 Acquired absence of other left toe(s); Z99.2 Dependence on renal dialysis; Z79.4 Long term (current) use of insulin; Y83.5 Amputation of limb(s) as the cause of abnormal reaction of the patient, or of later complication, without mention of misadventure at the time of the procedure
CPT/HCPCS: 11042; 87070; 87205

== ENCOUNTER 2018-01-12 12:04 | Emergency (ER) | payer MEDICARE, OTHER ==
[~2018-01-12] VITALS: Ht 175.3 cm; Wt 97.0 kg
[~2018-01-12 12:04] MED LIST changes: -ACETAMINOPHEN 500 MG TABLET PO ONE; -LIDOCAINE HCL 2% 5 ML JELLY TP ONE; -LIDOCAINE HCL 2%/EPI 1:200,000/PF 10 ML VIAL INJ ONE; -OXYC10IR PO
[2018-01-12 12:19] LABS: GLUCOSE,POINT OF CARE 222 MG/DL (70-110)
[2018-01-12] MEDS ORDERED: GADOBUTROL 1 MMOL/ML 10 ML VIAL IVP ONE (12:51)
[2018-01-12 12:57] LABS: HEMATOCRIT 32.6 % (41-53); HEMOGLOBIN 10.9 g/dL (13.5-17.5); LYMPHOCYTES # (AUTO) 1.1 K/uL (1.0-4.8); LYMPHOCYTES % (AUTO) 14.3 % (22.0-44.0); MEAN CORPUSCULAR HEMOGLOBIN 30.5 pg (26.0-34.0); MEAN CORPUSCULAR HGB CONC 33.5 G/dL (31.0-37.0); MEAN CORPUSCULAR VOLUME 91 fL (80-100); MONOCYTES # (AUTO) 0.4 K/uL (0.1-1.0); MONOCYTES % (AUTO) 5.5 % (2.0-9.0); NEUTROPHILS # (AUTO) 5.9 K/uL (1.8-7.7); NEUTROPHILS % (AUTO) 76.2 % (40.0-70.0); PLATELET COUNT (AUTO) 266 K/uL (150-450); RED BLOOD CELL COUNT(AUTO) 3.58 MIL/uL (4.50-5.90); RED CELL DISTRIBUTION WIDTH 17.5 % (11.5-14.5)
[2018-01-12 13:07] LABS: CALCIUM, TOTAL 8.7 mg/dL (8.8-10.5); CREATININE 6.76 mg/dL (0.60-1.30); POTASSIUM 5.5 mmol/L (3.5-5.1)
[2018-01-12 13:13] LABS: BILIRUBIN,TOTAL 0.5 mg/dL (0.1-1.0); TOTAL PROTEIN, SERUM 7.9 g/dL (6.4-8.2)
[2018-01-12] MEDS ORDERED: OXYC10IR PO (19:14)
[2018-01-12] MEDS ORDERED: PIPERACILLIN/TAZO 3.375 GM/D5W 50 ML IV ONE (19:15)
[2018-01-12] MEDS ORDERED: VANCOMYCIN HCL 1 GM/D5% WATER 200 ML IV ONE (19:15)
[2018-01-12] MEDS ORDERED: HYDROCODONE/ACETAMINOPHEN 5-325 MG TABLET PO ONE (21:30)
[2018-01-12 22:30] VITALS: BP 118/68
== END 2018-01-13 02:14 | disposition home or self-care (01) ==
LOC: EMS 12:05
DX: M86.9 Osteomyelitis, unspecified (principal); L08.9 Local infection of the skin and subcutaneous tissue, unspecified; I13.11 Hypertensive heart and chronic kidney disease without heart failure, with stage 5 chronic kidney disease, or end stage renal disease; E11.22 Type 2 diabetes mellitus with diabetic chronic kidney disease; N18.6 End stage renal disease; I25.10 Atherosclerotic heart disease of native coronary artery without angina pectoris; J44.9 Chronic obstructive pulmonary disease, unspecified; E78.00 Pure hypercholesterolemia, unspecified; F17.210 Nicotine dependence, cigarettes, uncomplicated; Z99.2 Dependence on renal dialysis; Z79.4 Long term (current) use of insulin; Z79.82 Long term (current) use of aspirin
CPT/HCPCS: 36415; 73220; 80053; 82962; 85025; 96365; 96366; 96367; 99285; A9585; J2543; J3370

== ENCOUNTER → 2018-01-12 | Outpatient (CLI) | payer MEDICARE, OTHER ==
[~2018-01-12] MED LIST changes: +ACETAMINOPHEN 500 MG TABLET PO ONE; +LIDOCAINE HCL 2% 5 ML JELLY TP ONE; +LIDOCAINE HCL 2%/EPI 1:200,000/PF 10 ML VIAL INJ ONE; +OXYC10IR PO
[2018-01-12 09:49] VITALS: BP 117/64
== END | disposition home or self-care (01) ==
LOC: HBOWC 08:39
PROVIDERS: ATTEND Surgery Plastic and Reconstructive Surgery
DX: T87.89 Other complications of amputation stump (principal); S91.301D Unspecified open wound, right foot, subsequent encounter; E11.610 Type 2 diabetes mellitus with diabetic neuropathic arthropathy; E11.51 Type 2 diabetes mellitus with diabetic peripheral angiopathy without gangrene; E11.22 Type 2 diabetes mellitus with diabetic chronic kidney disease; I13.2 Hypertensive heart and chronic kidney disease with heart failure and with stage 5 chronic kidney disease, or end stage renal disease; I50.9 Heart failure, unspecified; N18.6 End stage renal disease; E66.9 Obesity, unspecified; E78.00 Pure hypercholesterolemia, unspecified; G47.30 Sleep apnea, unspecified; I25.810 Atherosclerosis of coronary artery bypass graft(s) without angina pectoris; F17.210 Nicotine dependence, cigarettes, uncomplicated; Z89.422 Acquired absence of other left toe(s); Z99.2 Dependence on renal dialysis; Z79.4 Long term (current) use of insulin; X58.XXXD Exposure to other specified factors, subsequent encounter; Y83.5 Amputation of limb(s) as the cause of abnormal reaction of the patient, or of later complication, without mention of misadventure at the time of the procedure
CPT/HCPCS: 11043; 11044; 87070; 87077; 87186; 87205; X6474

== ENCOUNTER → 2018-01-19 | Outpatient (CLI) | payer MEDICARE, OTHER ==
[~2018-01-19] MED LIST changes: -ASPI81 PO; -OXYC10 PO; +OXYC10IR PO
[2018-01-19 08:56] VITALS: BP 136/57
== END | disposition home or self-care (01) ==
LOC: HBOWC 08:32
PROVIDERS: ATTEND Surgery Plastic and Reconstructive Surgery
DX: T87.89 Other complications of amputation stump (principal); S91.301D Unspecified open wound, right foot, subsequent encounter; E11.610 Type 2 diabetes mellitus with diabetic neuropathic arthropathy; E11.51 Type 2 diabetes mellitus with diabetic peripheral angiopathy without gangrene; I25.10 Atherosclerotic heart disease of native coronary artery without angina pectoris; J44.9 Chronic obstructive pulmonary disease, unspecified; E11.69 Type 2 diabetes mellitus with other specified complication; M86.9 Osteomyelitis, unspecified; E78.00 Pure hypercholesterolemia, unspecified; E66.9 Obesity, unspecified; G47.30 Sleep apnea, unspecified; E11.22 Type 2 diabetes mellitus with diabetic chronic kidney disease; I13.2 Hypertensive heart and chronic kidney disease with heart failure and with stage 5 chronic kidney disease, or end stage renal disease; N18.6 End stage renal disease; I50.9 Heart failure, unspecified; F17.210 Nicotine dependence, cigarettes, uncomplicated; Z89.422 Acquired absence of other left toe(s); Z99.2 Dependence on renal dialysis; Z79.4 Long term (current) use of insulin; X58.XXXD Exposure to other specified factors, subsequent encounter; Y83.5 Amputation of limb(s) as the cause of abnormal reaction of the patient, or of later complication, without mention of misadventure at the time of the procedure
CPT/HCPCS: 11043; 11044

== ENCOUNTER → 2018-01-26 | Outpatient (CLI) | payer MEDICARE, OTHER ==
[~2018-01-26] MED LIST changes: +LIDOCAINE HCL 2% 5 ML JELLY ONE; +LIDOCAINE HCL 4% 50 ML SOLUTION ONE
[2018-01-26 09:31] VITALS: BP 152/60
== END | disposition home or self-care (01) ==
LOC: HBOWC 08:54
PROVIDERS: ATTEND Surgery Plastic and Reconstructive Surgery
DX: T87.89 Other complications of amputation stump (principal); S91.301D Unspecified open wound, right foot, subsequent encounter; E11.610 Type 2 diabetes mellitus with diabetic neuropathic arthropathy; E11.51 Type 2 diabetes mellitus with diabetic peripheral angiopathy without gangrene; I25.10 Atherosclerotic heart disease of native coronary artery without angina pectoris; J44.9 Chronic obstructive pulmonary disease, unspecified; E11.69 Type 2 diabetes mellitus with other specified complication; M86.9 Osteomyelitis, unspecified; E78.00 Pure hypercholesterolemia, unspecified; E66.9 Obesity, unspecified; G47.30 Sleep apnea, unspecified; E11.22 Type 2 diabetes mellitus with diabetic chronic kidney disease; I13.2 Hypertensive heart and chronic kidney disease with heart failure and with stage 5 chronic kidney disease, or end stage renal disease; N18.6 End stage renal disease; I50.9 Heart failure, unspecified; F17.210 Nicotine dependence, cigarettes, uncomplicated; Z89.422 Acquired absence of other left toe(s); Z99.2 Dependence on renal dialysis; Z79.4 Long term (current) use of insulin; X58.XXXD Exposure to other specified factors, subsequent encounter; Y83.5 Amputation of limb(s) as the cause of abnormal reaction of the patient, or of later complication, without mention of misadventure at the time of the procedure
CPT/HCPCS: 11043; 11044

== ENCOUNTER → 2018-02-02 | Outpatient (CLI) | payer MEDICARE, OTHER ==
[~2018-02-02] MED LIST changes: -LIDOCAINE HCL 2% 5 ML JELLY ONE
[2018-02-02 10:49] VITALS: BP 150/77
== END | disposition home or self-care (01) ==
LOC: HBOWC 10:17
PROVIDERS: ATTEND Surgery Plastic and Reconstructive Surgery
DX: T87.89 Other complications of amputation stump (principal); S91.301D Unspecified open wound, right foot, subsequent encounter; E11.610 Type 2 diabetes mellitus with diabetic neuropathic arthropathy; E11.51 Type 2 diabetes mellitus with diabetic peripheral angiopathy without gangrene; I25.10 Atherosclerotic heart disease of native coronary artery without angina pectoris; J44.9 Chronic obstructive pulmonary disease, unspecified; E11.69 Type 2 diabetes mellitus with other specified complication; M86.9 Osteomyelitis, unspecified; E78.00 Pure hypercholesterolemia, unspecified; E66.9 Obesity, unspecified; G47.30 Sleep apnea, unspecified; E11.22 Type 2 diabetes mellitus with diabetic chronic kidney disease; I13.2 Hypertensive heart and chronic kidney disease with heart failure and with stage 5 chronic kidney disease, or end stage renal disease; N18.6 End stage renal disease; I50.9 Heart failure, unspecified; F17.210 Nicotine dependence, cigarettes, uncomplicated; Z89.422 Acquired absence of other left toe(s); Z99.2 Dependence on renal dialysis; Z79.4 Long term (current) use of insulin; X58.XXXD Exposure to other specified factors, subsequent encounter; Y83.5 Amputation of limb(s) as the cause of abnormal reaction of the patient, or of later complication, without mention of misadventure at the time of the procedure
CPT/HCPCS: 11043; 11044

== ENCOUNTER 2018-02-06 08:26 | Inpatient (IN) | payer MEDICARE, OTHER ==
[~2018-02-06] VITALS: Ht 175.3 cm; Wt 112.4 kg
[~2018-02-06 08:26] MED LIST changes: -LIDOCAINE HCL 4% 50 ML SOLUTION ONE
[2018-02-06] MEDS ORDERED: SODIUM CHLORIDE 0.9% 1,000 ML IV ONE ×2 (08:28→09:00)
[2018-02-06 08:54] LABS: BASOPHILS % (AUTO) 0.7 % (0.0-2.0); EOSINOPHILS % (AUTO) 2.4 % (1.0-6.0); LYMPHOCYTES # (AUTO) 0.9 K/uL (1.0-4.8); LYMPHOCYTES % (AUTO) 10.6 % (22.0-44.0); MEAN CORPUSCULAR HEMOGLOBIN 31.2 pg (26.0-34.0); MEAN CORPUSCULAR HGB CONC 33.2 G/dL (31.0-37.0); MEAN CORPUSCULAR VOLUME 94 fL (80-100); MONOCYTES # (AUTO) 0.6 K/uL (0.1-1.0); MONOCYTES % (AUTO) 7.1 % (2.0-9.0); NEUTROPHILS # (AUTO) 6.5 K/uL (1.8-7.7); NEUTROPHILS % (AUTO) 79.2 % (40.0-70.0); PLATELET COUNT (AUTO) 193 K/uL (150-450); RED BLOOD CELL COUNT(AUTO) 4.15 MIL/uL (4.50-5.90); RED CELL DISTRIBUTION WIDTH 17.8 % (11.5-14.5)
[2018-02-06] MEDS ORDERED: HYDR-4069 PO (08:56)
[2018-02-06] MEDS ORDERED: AMLO-512 PO (08:56)
[2018-02-06] MEDS ORDERED: MULT1TAB71 PO (08:56)
[2018-02-06] MEDS ORDERED: INSU100V SQ (08:56)
[2018-02-06 09:01] LABS: CALCIUM, TOTAL 8.9 mg/dL (8.8-10.5); CREATININE 5.53 mg/dL (0.60-1.30); POTASSIUM 5.6 mmol/L (3.5-5.1)
[2018-02-06 09:03] LABS: PROTHROMBIN TIME 10.6 SEC (9.4-11.6)
[2018-02-06 09:09] LABS: ALBUMIN 3.4 g/dL (3.4-5.0); BILIRUBIN,TOTAL 0.5 mg/dL (0.1-1.0); TOTAL PROTEIN, SERUM 8.1 g/dL (6.4-8.2)
[2018-02-06] MEDS ORDERED: SODIUM CL IRRIG SOLN BAG 3,000 ML IRRIG ONE (10:19)
[2018-02-06] MEDS ORDERED: SODIUM CHLORIDE 0.9% 10 ML ONE (10:19)
[2018-02-06] MEDS ORDERED: BACITRACIN 50,000 UNITS/VIAL ONE (10:19)
[2018-02-06] MEDS ORDERED: SODIUM HYPOCHLORITE 0.25% [HALF STRENGTH] 473 ML SOLUTION TP ONE (10:45)
[2018-02-06] MEDS ORDERED: LEVOFLOXACIN 500 MG/D5% WATER 100 ML IV ONE (12:45)
[2018-02-06] MEDS ORDERED: *CLINICAL-LEVOFLOXACIN IVPB DOSING CLINICAL ONE ×2 (12:45→14:15)
[2018-02-06] MEDS ORDERED: BUPIVACAINE HCL/PF 0.25% 30 ML VIAL ONE (13:06)
[2018-02-06] MEDS ORDERED: MEPERIDINE HCL/PF 25 MG/0.5 ML AMP IVP PRN (13:30)
[2018-02-06] MEDS ORDERED: FentaNYL CITRATE-PF 100 MCG/2 ML VIAL IVP PRN ×2 (13:30→14:30)
[2018-02-06] MEDS ORDERED: HYDROmorphone 2 MG/ML SYRINGE IVP PRN ×3 (13:30→14:30)
[2018-02-06] MEDS ORDERED: FentaNYL CITRATE-PF 100 MCG/2 ML VIAL ONE (14:18)
[2018-02-06 15:27] VITALS: BP 155/76
[2018-02-06] MEDS ORDERED: ZOLPIDEM TARTRATE 5 MG TABLET PO PRN (16:00)
[2018-02-06] MEDS ORDERED: ONDANSETRON HCL 4 MG/2 ML VIAL IVP PRN (16:00)
[2018-02-06] MEDS ORDERED: BISACODYL 10 MG RECTAL RECTAL SUPPOSITORY PR PRN (16:00)
[2018-02-06] MEDS ORDERED: MAGNESIUM HYDROXIDE SUSPENSION 30 ML UDCUP PO PRN (16:00)
[2018-02-06] MEDS ORDERED: ACETAMINOPHEN 325 MG TABLET PO PRN (16:00)
[2018-02-06] MEDS ORDERED: OxyCODONE HCL/ACETAMINOPHEN 5-325 MG TABLET PO PRN (17:30)
[2018-02-06] MEDS: CALCIUM ACETATE 667 MG CAPSULE PO SCH (17:41)
[2018-02-06] MEDS: HEPARIN SODIUM,PORCINE 5,000 UNITS/ML VIAL SQ SCH ×2 (17:41→23:47)
[2018-02-06] MEDS: HYDROCODONE/ACETAMINOPHEN 5-325 MG TABLET PO PRN (17:41)
[2018-02-06] MEDS: INSULIN LISPRO 100 UNITS/ML SQ SCH (17:46)
[2018-02-06 19:23] LABS: GLUCOMETER DEV NAME(LOC) 6N 2D; GLUCOSE,POINT OF CARE 201 MG/DL (70-110)
[2018-02-06 19:49] VITALS: BP 152/74
[2018-02-06] MEDS: MORPHINE SULFATE 2 MG/ML SYRINGE IVP PRN (20:24)
[2018-02-06] MEDS: DOCUSATE SODIUM 100 MG CAPSULE PO SCH (20:24)
[2018-02-06] MEDS: RANOLAZINE 500 MG SR TABLET PO SCH (20:24)
[2018-02-06] MEDS: ATORVASTATIN CALCIUM 20 MG TABLET PO SCH (20:25)
[2018-02-06] MEDS ORDERED: SODIUM CHLORIDE 0.9% 500 ML IV ONE (21:14)
[2018-02-07 00:12] VITALS: BP 157/70
[2018-02-07] MEDS: MORPHINE SULFATE 2 MG/ML SYRINGE IVP PRN ×4 (04:58→21:45)
[2018-02-07 05:05] VITALS: BP 150/83
[2018-02-07] MEDS ORDERED: PROPOFOL 1% 20 ML VIAL IVP ONE (05:58)
[2018-02-07] MEDS ORDERED: LIDOCAINE HCL/PF 2% 5 ML VIAL IM ONE (05:58)
[2018-02-07] MEDS ORDERED: ROCURONIUM BROMIDE 10 MG/ML 5 ML VIAL IVP ONE (05:58)
[2018-02-07] MEDS ORDERED: MIDAZOLAM HCL 2 MG/2 ML VIAL IVP ONE (05:58)
[2018-02-07] MEDS ORDERED: FentaNYL CITRATE-PF 100 MCG/2 ML VIAL IVP ONE (05:58)
[2018-02-07 06:08] LABS: GLUCOMETER DEV NAME(LOC) 6N 1E; GLUCOSE,POINT OF CARE 160 MG/DL (70-110)
[2018-02-07 06:41] LABS: BASOPHILS % (AUTO) 0.6 % (0.0-2.0); EOSINOPHILS % (AUTO) 1.9 % (1.0-6.0); HEMATOCRIT 36.5 % (41-53); HEMOGLOBIN 12.2 g/dL (13.5-17.5); LYMPHOCYTES # (AUTO) 1.2 K/uL (1.0-4.8); LYMPHOCYTES % (AUTO) 8.3 % (22.0-44.0); MEAN CORPUSCULAR HEMOGLOBIN 31.6 pg (26.0-34.0); MEAN CORPUSCULAR HGB CONC 33.5 G/dL (31.0-37.0); MEAN CORPUSCULAR VOLUME 95 fL (80-100); NEUTROPHILS % (AUTO) 82.2 % (40.0-70.0); PLATELET COUNT (AUTO) 146 K/uL (150-450); RED BLOOD CELL COUNT(AUTO) 3.86 MIL/uL (4.50-5.90); RED CELL DISTRIBUTION WIDTH 18.2 % (11.5-14.5)
[2018-02-07 07:31] LABS: CALCIUM, TOTAL 8.7 mg/dL (8.8-10.5); CREATININE 6.49 mg/dL (0.60-1.30); POTASSIUM 5.5 mmol/L (3.5-5.1)
[2018-02-07 07:39] VITALS: BP 153/65
[2018-02-07] MEDS: HYDROCODONE/ACETAMINOPHEN 5-325 MG TABLET PO PRN ×2 (07:49→21:10)
[2018-02-07] MEDS: INSULIN LISPRO 100 UNITS/ML SQ SCH ×3 (08:05→17:30)
[2018-02-07] MEDS: DOCUSATE SODIUM 100 MG CAPSULE PO SCH ×2 (08:06→21:08)
[2018-02-07] MEDS: HEPARIN SODIUM,PORCINE 5,000 UNITS/ML VIAL SQ SCH ×3 (08:06→23:59)
[2018-02-07] MEDS: ISOSORBIDE MONONITRATE 30 MG ER TABLET PO SCH (08:06)
[2018-02-07] MEDS: PANTOPRAZOLE SODIUM 40 MG DR TABLET PO SCH (08:06)
[2018-02-07] MEDS: RANOLAZINE 500 MG SR TABLET PO SCH ×2 (08:06→21:07)
[2018-02-07] MEDS: CHOLECALCIFEROL (VIT D3) 1,000 UNITS TABLET PO SCH (08:06)
[2018-02-07] MEDS: CALCIUM ACETATE 667 MG CAPSULE PO SCH ×3 (08:06→17:52)
[2018-02-07] MEDS: ASPIRIN 81 MG EC TABLET PO SCH (08:06)
[2018-02-07] MEDS: VITAMIN B COMP/VIT C/FOLIC ACID CAPSULE PO SCH (08:06)
[2018-02-07] MEDS ORDERED: MULTIVITAMINS WITH MINERALS, THERAPEUTIC TABLET PO SCH (09:00)
[2018-02-07] MEDS: AmLODIPine BESYLATE 10 MG TABLET PO SCH (13:21)
[2018-02-07 15:34] VITALS: BP 141/75
[2018-02-07 17:24] LABS: GLUCOMETER DEV NAME(LOC) 6N 2D; GLUCOSE,POINT OF CARE 70 MG/DL (70-110)
[2018-02-07 17:24] LABS: GLUCOMETER DEV NAME(LOC) 6N 2D; GLUCOSE,POINT OF CARE 97 MG/DL (70-110)
[2018-02-07] MEDS: ATORVASTATIN CALCIUM 20 MG TABLET PO SCH (21:08)
[2018-02-08 00:04] VITALS: BP 131/60
[2018-02-08 00:34] LABS: GLUCOMETER DEV NAME(LOC) 6N 1E; GLUCOSE,POINT OF CARE 188 MG/DL (70-110)
[2018-02-08] MEDS: MORPHINE SULFATE 2 MG/ML SYRINGE IVP PRN ×4 (05:20→23:20)
[2018-02-08 05:58] VITALS: BP 150/72
[2018-02-08 06:47] LABS: BASOPHILS % (AUTO) 0.6 % (0.0-2.0); EOSINOPHILS % (AUTO) 3.2 % (1.0-6.0); HEMOGLOBIN 11.9 g/dL (13.5-17.5); LYMPHOCYTES # (AUTO) 1.4 K/uL (1.0-4.8); LYMPHOCYTES % (AUTO) 17.9 % (22.0-44.0); MEAN CORPUSCULAR HEMOGLOBIN 31.2 pg (26.0-34.0); MEAN CORPUSCULAR HGB CONC 33.2 G/dL (31.0-37.0); MEAN CORPUSCULAR VOLUME 94 fL (80-100); MONOCYTES # (AUTO) 0.6 K/uL (0.1-1.0); MONOCYTES % (AUTO) 7.8 % (2.0-9.0); NEUTROPHILS # (AUTO) 5.4 K/uL (1.8-7.7); NEUTROPHILS % (AUTO) 70.5 % (40.0-70.0); PLATELET COUNT (AUTO) 174 K/uL (150-450); RED BLOOD CELL COUNT(AUTO) 3.82 MIL/uL (4.50-5.90); RED CELL DISTRIBUTION WIDTH 17.9 % (11.5-14.5)
[2018-02-08 07:40] VITALS: BP 152/58
[2018-02-08 07:41] LABS: CALCIUM, TOTAL 8.8 mg/dL (8.8-10.5); CREATININE 5.4 mg/dL (0.60-1.30); POTASSIUM 5.2 mmol/L (3.5-5.1)
[2018-02-08] MEDS: INSULIN LISPRO 100 UNITS/ML SQ SCH ×3 (08:59→17:30)
[2018-02-08] MEDS: PANTOPRAZOLE SODIUM 40 MG DR TABLET PO SCH (09:00)
[2018-02-08] MEDS: ASPIRIN 81 MG EC TABLET PO SCH (09:00)
[2018-02-08] MEDS: ISOSORBIDE MONONITRATE 30 MG ER TABLET PO SCH (09:00)
[2018-02-08] MEDS: DOCUSATE SODIUM 100 MG CAPSULE PO SCH ×2 (09:00→20:10)
[2018-02-08] MEDS: AmLODIPine BESYLATE 10 MG TABLET PO SCH (09:00)
[2018-02-08] MEDS: VITAMIN B COMP/VIT C/FOLIC ACID CAPSULE PO SCH (09:00)
[2018-02-08] MEDS: RANOLAZINE 500 MG SR TABLET PO SCH ×2 (09:00→20:10)
[2018-02-08] MEDS: CHOLECALCIFEROL (VIT D3) 1,000 UNITS TABLET PO SCH (09:01)
[2018-02-08] MEDS: HEPARIN SODIUM,PORCINE 5,000 UNITS/ML VIAL SQ SCH ×3 (09:01→23:20)
[2018-02-08] MEDS: CALCIUM ACETATE 667 MG CAPSULE PO SCH ×3 (09:01→17:58)
[2018-02-08 11:38] VITALS: BP 152/58
[2018-02-08] MEDS ORDERED: LEVOFLOXACIN 250 MG/D5% WATER 50 ML IV SCH (12:00)
[2018-02-08 12:29] LABS: GLUCOMETER DEV NAME(LOC) 6N 1E; GLUCOSE,POINT OF CARE 192 MG/DL (70-110)
[2018-02-08 12:29] LABS: GLUCOMETER DEV NAME(LOC) 6N 1E; GLUCOSE,POINT OF CARE 202 MG/DL (70-110)
[2018-02-08] MEDS ORDERED: ERTAPENEM SODIUM 1 GM in SODIUM CHLORIDE 0.9% 50 ML IV SCH (15:00)
[2018-02-08] MEDS ORDERED: *NON-FORMULARY MED [ENTER DRUG, DOSE, FREQ IN COMMENTS] CLINICAL ONE (15:30)
[2018-02-08] MEDS ORDERED: *CLINICAL-RX DOSING [ENTER DRUG IN COMMENTS] CLINICAL ONE (15:30)
[2018-02-08 15:47] VITALS: BP 134/60
[2018-02-08] MEDS ORDERED: AMPICILLIN SODIUM/SULBACTAM NA 3 GM in SODIUM CHLORIDE 0.9% 100 ML IV SCH (16:00)
[2018-02-08 18:35] LABS: GLUCOMETER DEV NAME(LOC) 6N 1E; GLUCOSE,POINT OF CARE 98 MG/DL (70-110)
[2018-02-08 19:54] LABS: GLUCOMETER DEV NAME(LOC) 6N 2D; GLUCOSE,POINT OF CARE 68 MG/DL (70-110)
[2018-02-08] MEDS: ATORVASTATIN CALCIUM 20 MG TABLET PO SCH (20:10)
[2018-02-08] MEDS: HYDROCODONE/ACETAMINOPHEN 5-325 MG TABLET PO PRN (20:12)
[2018-02-08 20:36] VITALS: BP 141/74
[2018-02-09 00:04] VITALS: BP 150/81
[2018-02-09] MEDS ORDERED: IMIPENEM/CILASTATIN SODIUM 500 MG in SODIUM CHLORIDE 0.9% 100 ML IV PRN (00:15)
[2018-02-09] MEDS ORDERED: MEROPENEM 500 MG in SODIUM CHLORIDE 0.9% 50 ML IV PRN (00:15)
[2018-02-09 00:19] LABS: GLUCOMETER DEV NAME(LOC) 6N 1E; GLUCOSE,POINT OF CARE 113 MG/DL (70-110)
[2018-02-09] MEDS ORDERED: ERTAPENEM SODIUM 0.5 GM in SODIUM CHLORIDE 0.9% 50 ML IV SCH (04:00)
[2018-02-09] MEDS ORDERED: MEROPENEM 500 MG in SODIUM CHLORIDE 0.9% 50 ML IV SCH (04:00)
[2018-02-09 04:44] VITALS: BP 137/74
[2018-02-09 05:34] LABS: GLUCOMETER DEV NAME(LOC) 6N 1E; GLUCOSE,POINT OF CARE 236 MG/DL (70-110)
[2018-02-09 06:32] LABS: BASOPHILS % (AUTO) 0.7 % (0.0-2.0); EOSINOPHILS % (AUTO) 3.8 % (1.0-6.0); HEMATOCRIT 34.4 % (41-53); HEMOGLOBIN 11.2 g/dL (13.5-17.5); LYMPHOCYTES # (AUTO) 1.2 K/uL (1.0-4.8); LYMPHOCYTES % (AUTO) 18.3 % (22.0-44.0); MEAN CORPUSCULAR HEMOGLOBIN 30.6 pg (26.0-34.0); MEAN CORPUSCULAR HGB CONC 32.7 G/dL (31.0-37.0); MEAN CORPUSCULAR VOLUME 94 fL (80-100); MONOCYTES # (AUTO) 0.6 K/uL (0.1-1.0); MONOCYTES % (AUTO) 8.3 % (2.0-9.0); NEUTROPHILS # (AUTO) 4.7 K/uL (1.8-7.7); NEUTROPHILS % (AUTO) 68.9 % (40.0-70.0); PLATELET COUNT (AUTO) 192 K/uL (150-450); RED BLOOD CELL COUNT(AUTO) 3.67 MIL/uL (4.50-5.90); RED CELL DISTRIBUTION WIDTH 17.2 % (11.5-14.5)
[2018-02-09] MEDS: MORPHINE SULFATE 2 MG/ML SYRINGE IVP PRN ×2 (06:32→12:13)
[2018-02-09] MEDS: INSULIN LISPRO 100 UNITS/ML SQ SCH ×3 (06:33→17:50)
[2018-02-09 07:10] LABS: CALCIUM, TOTAL 9.2 mg/dL (8.8-10.5); CREATININE 6.64 mg/dL (0.60-1.30); POTASSIUM 5.7 mmol/L (3.5-5.1)
[2018-02-09 07:30] VITALS: BP 107/68
[2018-02-09] MEDS: RANOLAZINE 500 MG SR TABLET PO SCH ×3 (09:00→20:42)
[2018-02-09] MEDS: ISOSORBIDE MONONITRATE 30 MG ER TABLET PO SCH (09:00)
[2018-02-09] MEDS: AmLODIPine BESYLATE 10 MG TABLET PO SCH (09:00)
[2018-02-09] MEDS: CHOLECALCIFEROL (VIT D3) 1,000 UNITS TABLET PO SCH (09:25)
[2018-02-09] MEDS: HEPARIN SODIUM,PORCINE 5,000 UNITS/ML VIAL SQ SCH ×2 (09:25→16:00)
[2018-02-09] MEDS: DOCUSATE SODIUM 100 MG CAPSULE PO SCH ×2 (09:25→20:42)
[2018-02-09] MEDS: VITAMIN B COMP/VIT C/FOLIC ACID CAPSULE PO SCH (09:26)
[2018-02-09] MEDS: CALCIUM ACETATE 667 MG CAPSULE PO SCH ×3 (09:26→18:00)
[2018-02-09] MEDS: PANTOPRAZOLE SODIUM 40 MG DR TABLET PO SCH (09:27)
[2018-02-09] MEDS: ASPIRIN 81 MG EC TABLET PO SCH (09:31)
[2018-02-09 11:42] VITALS: BP 142/55
[2018-02-09] MEDS ORDERED: LIDOCAINE HCL/PF 1% 2 ML VIAL INJ ONE (12:00)
[2018-02-09 14:59] LABS: GLUCOMETER DEV NAME(LOC) 6N 1E; GLUCOSE,POINT OF CARE 178 MG/DL (70-110)
[2018-02-09] MEDS ORDERED: SODIUM CHLORIDE 0.9% 1,000 ML IV ONE (15:31)
[2018-02-09 16:10] VITALS: BP 140/60
[2018-02-09 19:08] LABS: GLUCOMETER DEV NAME(LOC) 6N 2D; GLUCOSE,POINT OF CARE 120 MG/DL (70-110)
[2018-02-09 20:31] VITALS: BP 157/77
[2018-02-09] MEDS: ATORVASTATIN CALCIUM 20 MG TABLET PO SCH (20:42)
[2018-02-10] MEDS: MORPHINE SULFATE 2 MG/ML SYRINGE IVP PRN ×3 (00:10→18:29)
[2018-02-10] MEDS: HEPARIN SODIUM,PORCINE 5,000 UNITS/ML VIAL SQ SCH ×3 (00:11→17:13)
[2018-02-10 00:24] VITALS: BP 148/73
[2018-02-10 04:00] VITALS: BP 148/70
[2018-02-10 06:23] LABS: GLUCOMETER DEV NAME(LOC) 6N 2D; GLUCOSE,POINT OF CARE 130 MG/DL (70-110)
[2018-02-10] MEDS ORDERED: SODIUM CHLORIDE 0.9% 1,000 ML IV ONE (07:20)
[2018-02-10] MEDS: INSULIN LISPRO 100 UNITS/ML SQ SCH ×3 (07:33→18:27)
[2018-02-10] MEDS: PANTOPRAZOLE SODIUM 40 MG DR TABLET PO SCH (08:15)
[2018-02-10] MEDS: RANOLAZINE 500 MG SR TABLET PO SCH (08:15)
[2018-02-10] MEDS: CALCIUM ACETATE 667 MG CAPSULE PO SCH ×3 (08:15→18:27)
[2018-02-10] MEDS: ASPIRIN 81 MG EC TABLET PO SCH (08:16)
[2018-02-10] MEDS: ISOSORBIDE MONONITRATE 30 MG ER TABLET PO SCH (08:16)
[2018-02-10] MEDS: CHOLECALCIFEROL (VIT D3) 1,000 UNITS TABLET PO SCH (08:16)
[2018-02-10] MEDS: VITAMIN B COMP/VIT C/FOLIC ACID CAPSULE PO SCH (08:16)
[2018-02-10] MEDS: DOCUSATE SODIUM 100 MG CAPSULE PO SCH (08:17)
[2018-02-10 12:18] VITALS: BP 142/68
[2018-02-10] MEDS: AmLODIPine BESYLATE 10 MG TABLET PO SCH (12:57)
[2018-02-10 13:59] LABS: GLUCOMETER DEV NAME(LOC) 6N 2D; GLUCOSE,POINT OF CARE 84 MG/DL (70-110)
[2018-02-10] MEDS ORDERED: SODIUM CL IRRIG SOLN BOTTLE 250 ML IRRIG ONE (15:37)
[2018-02-10 16:09] VITALS: BP 124/55
[2018-02-10] MEDS ORDERED: SODIUM CHLORIDE 0.9% 250 ML IV ONE (17:07)
[2018-02-10] MEDS ORDERED: MEROPENEM 500 MG in SODIUM CHLORIDE 0.9% 50 ML IV SCH (18:00)
[2018-02-10] MEDS ORDERED: LIDOCAINE HCL/PF 1% 2 ML VIAL INJ ONE (19:29)
[2018-02-10 20:03] LABS: GLUCOMETER DEV NAME(LOC) 6N 1E; GLUCOSE,POINT OF CARE 81 MG/DL (70-110)
== END 2018-02-10 19:30 | disposition home or self-care (01) | DRG 623 ==
LOC: 6N 08:26
PROVIDERS: ADMIT Surgery Plastic and Reconstructive Surgery; ATTEND Surgery Plastic and Reconstructive Surgery
PROC: 0JBQ0ZZ Excision of Right Foot Subcutaneous Tissue and Fascia, Open Approach (ICD-10-PCS; 2018-02-06)
PROC: 0JXK0ZZ Transfer Left Hand Subcutaneous Tissue and Fascia, Open Approach (ICD-10-PCS; 2018-02-06)
PROC: 0HBMXZZ Excision of Right Foot Skin, External Approach (ICD-10-PCS; 2018-02-06)
PROC: 0PBQ0ZZ Excision of Left Metacarpal, Open Approach (ICD-10-PCS; principal; 2018-02-06 11:00)
PROC: 5A1D70Z Performance of Urinary Filtration, Intermittent, Less than 6 Hours Per Day (ICD-10-PCS; 2018-02-07)
PROC: 5A1D70Z Performance of Urinary Filtration, Intermittent, Less than 6 Hours Per Day (ICD-10-PCS; 2018-02-09)
PROC: 05HY33Z Insertion of Infusion Device into Upper Vein, Percutaneous Approach (ICD-10-PCS; 2018-02-10)
PROC: B54MZZA Ultrasonography of Right Upper Extremity Veins, Guidance (ICD-10-PCS; 2018-02-10)
PROC: 5A1D70Z Performance of Urinary Filtration, Intermittent, Less than 6 Hours Per Day (ICD-10-PCS; 2018-02-10)
DX: E11.621 Type 2 diabetes mellitus with foot ulcer (principal); M86.8X4 Other osteomyelitis, hand; I12.0 Hypertensive chronic kidney disease with stage 5 chronic kidney disease or end stage renal disease; N18.6 End stage renal disease; E11.69 Type 2 diabetes mellitus with other specified complication; L97.519 Non-pressure chronic ulcer of other part of right foot with unspecified severity; L84 Corns and callosities; D63.1 Anemia in chronic kidney disease; E11.22 Type 2 diabetes mellitus with diabetic chronic kidney disease; E11.51 Type 2 diabetes mellitus with diabetic peripheral angiopathy without gangrene; Z16.12 Extended spectrum beta lactamase (ESBL) resistance; B96.20 Unspecified Escherichia coli [E. coli] as the cause of diseases classified elsewhere; E78.00 Pure hypercholesterolemia, unspecified; I25.10 Atherosclerotic heart disease of native coronary artery without angina pectoris; S61.402A Unspecified open wound of left hand, initial encounter; I25.5 Ischemic cardiomyopathy; J44.9 Chronic obstructive pulmonary disease, unspecified; X58.XXXA Exposure to other specified factors, initial encounter; Y93.89 Activity, other specified; Y92.89 Other specified places as the place of occurrence of the external cause; Y99.8 Other external cause status; Z90.49 Acquired absence of other specified parts of digestive tract; Z89.022 Acquired absence of left finger(s); Z99.2 Dependence on renal dialysis; Z79.4 Long term (current) use of insulin; Z79.82 Long term (current) use of aspirin
CPT/HCPCS: 36245; 36569; 76937; 84132; 87070; 87081; 87205; 87340; 88304; 88307; 88311; 90935; 93005; J0295; J0690; J1644; J1815; J1956; J2185; J2250; J2270; J2704; J3010; J3490; J7030; J7040; J7050

== ENCOUNTER 2018-02-18 11:35 | Emergency (ER) | payer MEDICARE, OTHER ==
[~2018-02-18] VITALS: Ht 175.3 cm; Wt 96.0 kg
[~2018-02-18 11:35] MED LIST changes: -ALBU8.5H8 IH; +AMLO-512 PO; -CLON.2 PO; +HYDR-4069 PO; -INSLAN SQ; -LISI-661 PO; +MULT1TAB71 PO; -OXYC10IR PO; -TICA90TA PO; -TRAM50TA4 PO
[2018-02-18 13:34] VITALS: BP 150/70
[2018-02-19] MEDS ORDERED: COLL30OI TP (15:14)
[2018-02-19] MEDS ORDERED: MERO500P IV (15:14)
== END 2018-02-18 13:55 | disposition home or self-care (01) ==
LOC: EMS 11:36
DX: T82.838A Hemorrhage due to vascular prosthetic devices, implants and grafts, initial encounter (principal)
CPT/HCPCS: 99283

== ENCOUNTER → 2018-02-19 | Outpatient (CLI) | payer MEDICARE, OTHER ==
[~2018-02-19] MED LIST changes: +COLL30OI TP; +MERO500P IV
[2018-02-19 08:39] VITALS: BP 151/76
== END | disposition home or self-care (01) ==
LOC: HBOWC 07:35
PROVIDERS: ATTEND Nurse Practitioner Adult Health
DX: T87.89 Other complications of amputation stump (principal); S91.301D Unspecified open wound, right foot, subsequent encounter; E11.610 Type 2 diabetes mellitus with diabetic neuropathic arthropathy; E11.51 Type 2 diabetes mellitus with diabetic peripheral angiopathy without gangrene; I25.10 Atherosclerotic heart disease of native coronary artery without angina pectoris; J44.9 Chronic obstructive pulmonary disease, unspecified; E11.69 Type 2 diabetes mellitus with other specified complication; M86.9 Osteomyelitis, unspecified; E78.00 Pure hypercholesterolemia, unspecified; E66.9 Obesity, unspecified; G47.30 Sleep apnea, unspecified; E11.22 Type 2 diabetes mellitus with diabetic chronic kidney disease; I13.2 Hypertensive heart and chronic kidney disease with heart failure and with stage 5 chronic kidney disease, or end stage renal disease; N18.6 End stage renal disease; I50.9 Heart failure, unspecified; F17.210 Nicotine dependence, cigarettes, uncomplicated; Z89.422 Acquired absence of other left toe(s); Z99.2 Dependence on renal dialysis; Z79.4 Long term (current) use of insulin; X58.XXXD Exposure to other specified factors, subsequent encounter; Y83.5 Amputation of limb(s) as the cause of abnormal reaction of the patient, or of later complication, without mention of misadventure at the time of the procedure
CPT/HCPCS: 97597

== ENCOUNTER → 2018-02-26 | Outpatient (CLI) | payer MEDICARE, OTHER ==
[2018-02-26 08:16] VITALS: BP 149/100
== END | disposition home or self-care (01) ==
LOC: HBOWC 07:56
PROVIDERS: ATTEND Nurse Practitioner Adult Health
DX: T87.89 Other complications of amputation stump (principal); S91.301D Unspecified open wound, right foot, subsequent encounter; E11.610 Type 2 diabetes mellitus with diabetic neuropathic arthropathy; E11.51 Type 2 diabetes mellitus with diabetic peripheral angiopathy without gangrene; I25.10 Atherosclerotic heart disease of native coronary artery without angina pectoris; J44.9 Chronic obstructive pulmonary disease, unspecified; E11.69 Type 2 diabetes mellitus with other specified complication; M86.9 Osteomyelitis, unspecified; E78.00 Pure hypercholesterolemia, unspecified; E66.9 Obesity, unspecified; G47.30 Sleep apnea, unspecified; E11.22 Type 2 diabetes mellitus with diabetic chronic kidney disease; I13.2 Hypertensive heart and chronic kidney disease with heart failure and with stage 5 chronic kidney disease, or end stage renal disease; N18.6 End stage renal disease; I50.9 Heart failure, unspecified; F17.210 Nicotine dependence, cigarettes, uncomplicated; Z89.422 Acquired absence of other left toe(s); Z99.2 Dependence on renal dialysis; Z79.4 Long term (current) use of insulin; X58.XXXD Exposure to other specified factors, subsequent encounter; Y83.5 Amputation of limb(s) as the cause of abnormal reaction of the patient, or of later complication, without mention of misadventure at the time of the procedure
CPT/HCPCS: 97597

== ENCOUNTER 2018-03-04 09:29 | Emergency (ER) | payer MEDICARE, OTHER ==
[~2018-03-04] VITALS: Ht 175.3 cm; Wt 92.0 kg
[2018-03-04] MEDS ORDERED: MORPHINE SULFATE 4 MG/ML SYRINGE IVP ONE (10:30)
[2018-03-04] MEDS ORDERED: ONDANSETRON HCL 4 MG/2 ML VIAL IVP ONE (10:30)
[2018-03-04 10:57] LABS: BASOPHILS % (AUTO) 0.6 % (0.0-2.0); EOSINOPHILS % (AUTO) 4.1 % (1.0-6.0); HEMOGLOBIN 14.6 g/dL (13.5-17.5); LYMPHOCYTES # (AUTO) 0.7 K/uL (1.0-4.8); LYMPHOCYTES % (AUTO) 6.7 % (22.0-44.0); MEAN CORPUSCULAR HEMOGLOBIN 31.2 pg (26.0-34.0); MEAN CORPUSCULAR HGB CONC 33.9 G/dL (31.0-37.0); MEAN CORPUSCULAR VOLUME 92 fL (80-100); MONOCYTES # (AUTO) 0.6 K/uL (0.1-1.0); MONOCYTES % (AUTO) 5.8 % (2.0-9.0); NEUTROPHILS # (AUTO) 8.5 K/uL (1.8-7.7); NEUTROPHILS % (AUTO) 82.8 % (40.0-70.0); RED BLOOD CELL COUNT(AUTO) 4.67 MIL/uL (4.50-5.90); RED CELL DISTRIBUTION WIDTH 16.3 % (11.5-14.5)
[2018-03-04 11:17] LABS: LACTIC ACID 0.8 mmol/L (0.4-2.0)
[2018-03-04 11:26] LABS: PLATELET COUNT (AUTO) 197 K/uL (150-450)
[2018-03-04 11:27] LABS: CALCIUM, TOTAL 9.8 mg/dL (8.8-10.5); CREATININE 6.32 mg/dL (0.60-1.30); POTASSIUM 5.7 mmol/L (3.5-5.1)
[2018-03-04 11:32] LABS: ALBUMIN 3.7 g/dL (3.4-5.0); BILIRUBIN,TOTAL 0.6 mg/dL (0.1-1.0); TOTAL PROTEIN, SERUM 7.9 g/dL (6.4-8.2)
[2018-03-04 13:11] LABS: APPEARANCE,URINE TURBID (CLEAR); GLUCOSE, URINE (UA) 100 mg/dL (NEGATIVE); KETONES,URINE NEGATIVE (NEGATIVE); LEUKOCYTE ESTERASE ,URINE LARGE (NEGATIVE); NITRATE,URINE NEGATIVE (NEGATIVE); OCCULT BLOOD,URINE MODERATE (NEGATIVE); PROTEIN,URINE SEE CONFIRM (NEGATIVE); UROBILINOGEN,URINE 0.2 mg/dL (<=1.0)
[2018-03-04 13:14] LABS: BILIRUBIN,URINE PRELIM. POSITIVE (NEGATIVE)
[2018-03-04 13:28] LABS: SULFOSALICYLIC ACID,URINE 3+ (Negative)
[2018-03-04 13:31] LABS: BACTERIA,URINE Few /HPF (None Seen); SQUAMOUS EPITHELIAL CELL,UR Few /LPF (None Seen); WBC,URINE 51-100 /HPF (0-5)
[2018-03-04 14:36] VITALS: BP 151/82
[2018-03-05 10:45] LABS: GLUCOSE,POINT OF CARE 189 MG/DL (70-110)
== END 2018-03-04 14:38 | disposition home or self-care (01) ==
LOC: EMS 09:57
DX: N39.0 Urinary tract infection, site not specified (principal); I25.10 Atherosclerotic heart disease of native coronary artery without angina pectoris; J44.9 Chronic obstructive pulmonary disease, unspecified; I12.0 Hypertensive chronic kidney disease with stage 5 chronic kidney disease or end stage renal disease; E11.22 Type 2 diabetes mellitus with diabetic chronic kidney disease; N18.6 End stage renal disease; F17.210 Nicotine dependence, cigarettes, uncomplicated; E78.00 Pure hypercholesterolemia, unspecified; Z99.2 Dependence on renal dialysis; Z79.4 Long term (current) use of insulin
CPT/HCPCS: 36415; 71045; 74176; 80053; 81001; 81002; 82962; 83605; 83690; 84484; 85025; 87086; 93005; 96374; 96375; 99285; J2270; J2405

== ENCOUNTER → 2018-03-16 | Outpatient (CLI) | payer MEDICARE, OTHER ==
[~2018-03-16] MED LIST changes: -COLL30OI TP; -HYDR-4069 PO; -INSU100V SQ; -ISOS30TA6 PO; -MERO500P IV; -MULT1TAB71 PO
[2018-03-16 08:05] VITALS: BP 148/61
== END | disposition home or self-care (01) ==
LOC: HBOWC 07:43
PROVIDERS: ATTEND Surgery Plastic and Reconstructive Surgery
DX: T87.89 Other complications of amputation stump (principal); E11.621 Type 2 diabetes mellitus with foot ulcer; L97.511 Non-pressure chronic ulcer of other part of right foot limited to breakdown of skin; E11.610 Type 2 diabetes mellitus with diabetic neuropathic arthropathy; E11.51 Type 2 diabetes mellitus with diabetic peripheral angiopathy without gangrene; I25.10 Atherosclerotic heart disease of native coronary artery without angina pectoris; J44.9 Chronic obstructive pulmonary disease, unspecified; E11.69 Type 2 diabetes mellitus with other specified complication; M86.9 Osteomyelitis, unspecified; E78.00 Pure hypercholesterolemia, unspecified; E66.9 Obesity, unspecified; G47.30 Sleep apnea, unspecified; E11.22 Type 2 diabetes mellitus with diabetic chronic kidney disease; I13.2 Hypertensive heart and chronic kidney disease with heart failure and with stage 5 chronic kidney disease, or end stage renal disease; N18.6 End stage renal disease; I50.22 Chronic systolic (congestive) heart failure; E11.43 Type 2 diabetes mellitus with diabetic autonomic (poly)neuropathy; K31.84 Gastroparesis; E11.319 Type 2 diabetes mellitus with unspecified diabetic retinopathy without macular edema; F17.210 Nicotine dependence, cigarettes, uncomplicated; Z89.422 Acquired absence of other left toe(s); Z99.2 Dependence on renal dialysis; Z79.4 Long term (current) use of insulin; Z79.82 Long term (current) use of aspirin; Y83.5 Amputation of limb(s) as the cause of abnormal reaction of the patient, or of later complication, without mention of misadventure at the time of the procedure
CPT/HCPCS: 11043

== ENCOUNTER → 2018-03-23 | Outpatient (CLI) | payer MEDICARE, OTHER ==
[2018-03-23 08:00] VITALS: BP 150/63
== END | disposition home or self-care (01) ==
LOC: HBOWC 07:55
PROVIDERS: ATTEND Surgery Plastic and Reconstructive Surgery
DX: T87.89 Other complications of amputation stump (principal); E11.621 Type 2 diabetes mellitus with foot ulcer; L97.511 Non-pressure chronic ulcer of other part of right foot limited to breakdown of skin; E11.610 Type 2 diabetes mellitus with diabetic neuropathic arthropathy; E11.51 Type 2 diabetes mellitus with diabetic peripheral angiopathy without gangrene; I25.10 Atherosclerotic heart disease of native coronary artery without angina pectoris; J44.9 Chronic obstructive pulmonary disease, unspecified; E11.69 Type 2 diabetes mellitus with other specified complication; M86.9 Osteomyelitis, unspecified; E78.00 Pure hypercholesterolemia, unspecified; E66.9 Obesity, unspecified; G47.30 Sleep apnea, unspecified; E11.22 Type 2 diabetes mellitus with diabetic chronic kidney disease; I13.2 Hypertensive heart and chronic kidney disease with heart failure and with stage 5 chronic kidney disease, or end stage renal disease; N18.6 End stage renal disease; I50.22 Chronic systolic (congestive) heart failure; E11.43 Type 2 diabetes mellitus with diabetic autonomic (poly)neuropathy; K31.84 Gastroparesis; E11.319 Type 2 diabetes mellitus with unspecified diabetic retinopathy without macular edema; F17.210 Nicotine dependence, cigarettes, uncomplicated; Z89.422 Acquired absence of other left toe(s); Z99.2 Dependence on renal dialysis; Z79.4 Long term (current) use of insulin; Z79.82 Long term (current) use of aspirin; Y83.5 Amputation of limb(s) as the cause of abnormal reaction of the patient, or of later complication, without mention of misadventure at the time of the procedure
CPT/HCPCS: 11043

== ENCOUNTER → 2018-03-30 | Outpatient (CLI) | payer MEDICARE, OTHER ==
[2018-03-30 08:30] VITALS: BP 160/59
== END | disposition home or self-care (01) ==
LOC: HBOWC 07:55
PROVIDERS: ATTEND Surgery Plastic and Reconstructive Surgery
DX: T87.89 Other complications of amputation stump (principal); E11.621 Type 2 diabetes mellitus with foot ulcer; L97.511 Non-pressure chronic ulcer of other part of right foot limited to breakdown of skin; E11.610 Type 2 diabetes mellitus with diabetic neuropathic arthropathy; E11.51 Type 2 diabetes mellitus with diabetic peripheral angiopathy without gangrene; I25.10 Atherosclerotic heart disease of native coronary artery without angina pectoris; J44.9 Chronic obstructive pulmonary disease, unspecified; E11.69 Type 2 diabetes mellitus with other specified complication; M86.9 Osteomyelitis, unspecified; E78.00 Pure hypercholesterolemia, unspecified; E66.9 Obesity, unspecified; G47.30 Sleep apnea, unspecified; E11.22 Type 2 diabetes mellitus with diabetic chronic kidney disease; I13.2 Hypertensive heart and chronic kidney disease with heart failure and with stage 5 chronic kidney disease, or end stage renal disease; N18.6 End stage renal disease; I50.22 Chronic systolic (congestive) heart failure; E11.43 Type 2 diabetes mellitus with diabetic autonomic (poly)neuropathy; K31.84 Gastroparesis; E11.319 Type 2 diabetes mellitus with unspecified diabetic retinopathy without macular edema; F17.210 Nicotine dependence, cigarettes, uncomplicated; Z89.422 Acquired absence of other left toe(s); Z99.2 Dependence on renal dialysis; Z79.4 Long term (current) use of insulin; Z79.82 Long term (current) use of aspirin; Y83.5 Amputation of limb(s) as the cause of abnormal reaction of the patient, or of later complication, without mention of misadventure at the time of the procedure
CPT/HCPCS: 11043

== ENCOUNTER → 2018-04-22 | Outpatient (CLI) | payer MEDICARE, OTHER ==
[~2018-04-22] MED LIST changes: +SULF1TAB42 PO
[2018-04-22 08:57] VITALS: BP 125/60
== END | disposition home or self-care (01) ==
LOC: HBOWC 08:07
PROVIDERS: ATTEND Internal Medicine
DX: T87.89 Other complications of amputation stump (principal); E11.621 Type 2 diabetes mellitus with foot ulcer; L97.511 Non-pressure chronic ulcer of other part of right foot limited to breakdown of skin; E11.610 Type 2 diabetes mellitus with diabetic neuropathic arthropathy; E11.51 Type 2 diabetes mellitus with diabetic peripheral angiopathy without gangrene; I25.10 Atherosclerotic heart disease of native coronary artery without angina pectoris; J44.9 Chronic obstructive pulmonary disease, unspecified; E11.69 Type 2 diabetes mellitus with other specified complication; M86.9 Osteomyelitis, unspecified; E78.00 Pure hypercholesterolemia, unspecified; E66.9 Obesity, unspecified; G47.30 Sleep apnea, unspecified; E11.22 Type 2 diabetes mellitus with diabetic chronic kidney disease; I13.2 Hypertensive heart and chronic kidney disease with heart failure and with stage 5 chronic kidney disease, or end stage renal disease; N18.6 End stage renal disease; I50.22 Chronic systolic (congestive) heart failure; E11.43 Type 2 diabetes mellitus with diabetic autonomic (poly)neuropathy; K31.84 Gastroparesis; E11.319 Type 2 diabetes mellitus with unspecified diabetic retinopathy without macular edema; F17.210 Nicotine dependence, cigarettes, uncomplicated; Z89.422 Acquired absence of other left toe(s); Z99.2 Dependence on renal dialysis; Z79.4 Long term (current) use of insulin; Z79.82 Long term (current) use of aspirin; Y83.5 Amputation of limb(s) as the cause of abnormal reaction of the patient, or of later complication, without mention of misadventure at the time of the procedure
CPT/HCPCS: 11042

== ENCOUNTER → 2018-04-29 | Outpatient (CLI) | payer MEDICARE, OTHER ==
[~2018-04-29] MED LIST changes: +LIDOCAINE 2% 5 ML JELLY TP ONE
[2018-04-29 08:21] VITALS: BP 122/67
== END | disposition home or self-care (01) ==
LOC: HBOWC 07:55
PROVIDERS: ATTEND Internal Medicine
DX: T87.89 Other complications of amputation stump (principal); E11.621 Type 2 diabetes mellitus with foot ulcer; L97.511 Non-pressure chronic ulcer of other part of right foot limited to breakdown of skin; E11.610 Type 2 diabetes mellitus with diabetic neuropathic arthropathy; E11.51 Type 2 diabetes mellitus with diabetic peripheral angiopathy without gangrene; I25.10 Atherosclerotic heart disease of native coronary artery without angina pectoris; J44.9 Chronic obstructive pulmonary disease, unspecified; E11.69 Type 2 diabetes mellitus with other specified complication; M86.9 Osteomyelitis, unspecified; E78.00 Pure hypercholesterolemia, unspecified; E66.9 Obesity, unspecified; G47.30 Sleep apnea, unspecified; E11.22 Type 2 diabetes mellitus with diabetic chronic kidney disease; I13.2 Hypertensive heart and chronic kidney disease with heart failure and with stage 5 chronic kidney disease, or end stage renal disease; N18.6 End stage renal disease; I50.22 Chronic systolic (congestive) heart failure; E11.43 Type 2 diabetes mellitus with diabetic autonomic (poly)neuropathy; K31.84 Gastroparesis; E11.319 Type 2 diabetes mellitus with unspecified diabetic retinopathy without macular edema; F17.210 Nicotine dependence, cigarettes, uncomplicated; Z99.2 Dependence on renal dialysis; Z89.422 Acquired absence of other left toe(s); Z79.4 Long term (current) use of insulin; Z79.82 Long term (current) use of aspirin; Y83.5 Amputation of limb(s) as the cause of abnormal reaction of the patient, or of later complication, without mention of misadventure at the time of the procedure
CPT/HCPCS: 11042

== ENCOUNTER → 2018-05-13 | Outpatient (CLI) | payer MEDICARE, OTHER ==
[2018-05-13 08:44] VITALS: BP 146/68
== END | disposition home or self-care (01) ==
LOC: HBOWC 08:11
PROVIDERS: ATTEND Internal Medicine
DX: T87.89 Other complications of amputation stump (principal); E11.621 Type 2 diabetes mellitus with foot ulcer; L97.511 Non-pressure chronic ulcer of other part of right foot limited to breakdown of skin; E11.610 Type 2 diabetes mellitus with diabetic neuropathic arthropathy; E11.51 Type 2 diabetes mellitus with diabetic peripheral angiopathy without gangrene; I25.10 Atherosclerotic heart disease of native coronary artery without angina pectoris; J44.9 Chronic obstructive pulmonary disease, unspecified; E11.69 Type 2 diabetes mellitus with other specified complication; M86.9 Osteomyelitis, unspecified; E78.00 Pure hypercholesterolemia, unspecified; E66.9 Obesity, unspecified; G47.30 Sleep apnea, unspecified; E11.22 Type 2 diabetes mellitus with diabetic chronic kidney disease; I13.2 Hypertensive heart and chronic kidney disease with heart failure and with stage 5 chronic kidney disease, or end stage renal disease; N18.6 End stage renal disease; I50.22 Chronic systolic (congestive) heart failure; E11.43 Type 2 diabetes mellitus with diabetic autonomic (poly)neuropathy; K31.84 Gastroparesis; E11.319 Type 2 diabetes mellitus with unspecified diabetic retinopathy without macular edema; F17.210 Nicotine dependence, cigarettes, uncomplicated; Z99.2 Dependence on renal dialysis; Z89.422 Acquired absence of other left toe(s); Z79.4 Long term (current) use of insulin; Z79.82 Long term (current) use of aspirin; Y83.5 Amputation of limb(s) as the cause of abnormal reaction of the patient, or of later complication, without mention of misadventure at the time of the procedure
CPT/HCPCS: 11042

== ENCOUNTER → 2018-05-20 | Outpatient (CLI) | payer MEDICARE, OTHER ==
[~2018-05-20] MED LIST changes: -LIDOCAINE 2% 5 ML JELLY TP ONE
[2018-05-20 08:27] VITALS: BP 144/58
== END | disposition home or self-care (01) ==
LOC: HBOWC 08:10
PROVIDERS: ATTEND Internal Medicine
DX: E11.621 Type 2 diabetes mellitus with foot ulcer (principal); L97.511 Non-pressure chronic ulcer of other part of right foot limited to breakdown of skin; E11.610 Type 2 diabetes mellitus with diabetic neuropathic arthropathy; E11.51 Type 2 diabetes mellitus with diabetic peripheral angiopathy without gangrene; I25.10 Atherosclerotic heart disease of native coronary artery without angina pectoris; J44.9 Chronic obstructive pulmonary disease, unspecified; E11.69 Type 2 diabetes mellitus with other specified complication; M86.9 Osteomyelitis, unspecified; E78.00 Pure hypercholesterolemia, unspecified; E66.9 Obesity, unspecified; G47.30 Sleep apnea, unspecified; E11.22 Type 2 diabetes mellitus with diabetic chronic kidney disease; I13.2 Hypertensive heart and chronic kidney disease with heart failure and with stage 5 chronic kidney disease, or end stage renal disease; N18.6 End stage renal disease; I50.22 Chronic systolic (congestive) heart failure; E11.43 Type 2 diabetes mellitus with diabetic autonomic (poly)neuropathy; K31.84 Gastroparesis; E11.319 Type 2 diabetes mellitus with unspecified diabetic retinopathy without macular edema; L84 Corns and callosities; F17.210 Nicotine dependence, cigarettes, uncomplicated; Z99.2 Dependence on renal dialysis; Z89.422 Acquired absence of other left toe(s); Z79.4 Long term (current) use of insulin; Z79.82 Long term (current) use of aspirin; Z79.899 Other long term (current) drug therapy; Y83.5 Amputation of limb(s) as the cause of abnormal reaction of the patient, or of later complication, without mention of misadventure at the time of the procedure
CPT/HCPCS: 11042

== ENCOUNTER → 2018-05-20 | Outpatient (CLI) | payer MEDICARE, OTHER ==
[~2018-05-20] MED LIST changes: +GADOBUTROL 1 MMOL/ML 10 ML VIAL IVP ONE
== END | disposition home or self-care (01) ==
LOC: RADMN 08:57
PROVIDERS: ATTEND Internal Medicine
DX: S86.011A Strain of right Achilles tendon, initial encounter (principal); E11.22 Type 2 diabetes mellitus with diabetic chronic kidney disease; N18.6 End stage renal disease; M62.571 Muscle wasting and atrophy, not elsewhere classified, right ankle and foot; R60.0 Localized edema; X58.XXXA Exposure to other specified factors, initial encounter; Y93.89 Activity, other specified; Y92.89 Other specified places as the place of occurrence of the external cause; Y99.8 Other external cause status
CPT/HCPCS: 73721; A9585

== ENCOUNTER → 2018-05-27 | Outpatient (CLI) | payer MEDICARE, OTHER ==
[~2018-05-27] MED LIST changes: -GADOBUTROL 1 MMOL/ML 10 ML VIAL IVP ONE
[2018-05-27 08:23] VITALS: BP 143/67
[2018-05-27 11:20] LABS: BASOPHILS % (AUTO) 0.7 % (0.0-2.0); EOSINOPHILS % (AUTO) 2.3 % (1.0-6.0); HEMATOCRIT 36.5 % (41-53); HEMOGLOBIN 11.9 g/dL (13.5-17.5); LYMPHOCYTES # (AUTO) 0.8 K/uL (1.0-4.8); LYMPHOCYTES % (AUTO) 11.7 % (22.0-44.0); MEAN CORPUSCULAR HGB CONC 32.6 G/dL (31.0-37.0); MEAN CORPUSCULAR VOLUME 95 fL (80-100); MONOCYTES # (AUTO) 0.5 K/uL (0.1-1.0); MONOCYTES % (AUTO) 7.4 % (2.0-9.0); NEUTROPHILS # (AUTO) 5.3 K/uL (1.8-7.7); NEUTROPHILS % (AUTO) 77.9 % (40.0-70.0); PLATELET COUNT (AUTO) 228 K/uL (150-450); RED BLOOD CELL COUNT(AUTO) 3.84 MIL/uL (4.50-5.90); RED CELL DISTRIBUTION WIDTH 20.2 % (11.5-14.5)
[2018-05-27 13:22] LABS: ERYTHROCYTE SEDIMENTATION RATE 70 MM/HR (0-15)
== END | disposition home or self-care (01) ==
LOC: HBOWC 07:56
PROVIDERS: ATTEND Internal Medicine
DX: E11.621 Type 2 diabetes mellitus with foot ulcer (principal); E11.610 Type 2 diabetes mellitus with diabetic neuropathic arthropathy; E11.22 Type 2 diabetes mellitus with diabetic chronic kidney disease; N18.6 End stage renal disease; Z72.0 Tobacco use; N39.0 Urinary tract infection, site not specified; E11.51 Type 2 diabetes mellitus with diabetic peripheral angiopathy without gangrene
CPT/HCPCS: 85651; 86140

== ENCOUNTER → 2018-06-03 | Outpatient (CLI) | payer MEDICARE, OTHER ==
[2018-06-03 08:20] VITALS: BP 141/61
== END | disposition home or self-care (01) ==
LOC: HBOWC 08:14
PROVIDERS: ATTEND Internal Medicine
DX: E11.621 Type 2 diabetes mellitus with foot ulcer (principal); L97.511 Non-pressure chronic ulcer of other part of right foot limited to breakdown of skin; E11.610 Type 2 diabetes mellitus with diabetic neuropathic arthropathy; E11.51 Type 2 diabetes mellitus with diabetic peripheral angiopathy without gangrene; I25.10 Atherosclerotic heart disease of native coronary artery without angina pectoris; J44.9 Chronic obstructive pulmonary disease, unspecified; E11.69 Type 2 diabetes mellitus with other specified complication; M86.9 Osteomyelitis, unspecified; E78.00 Pure hypercholesterolemia, unspecified; E66.9 Obesity, unspecified; G47.30 Sleep apnea, unspecified; E11.22 Type 2 diabetes mellitus with diabetic chronic kidney disease; I13.2 Hypertensive heart and chronic kidney disease with heart failure and with stage 5 chronic kidney disease, or end stage renal disease; N18.6 End stage renal disease; I50.22 Chronic systolic (congestive) heart failure; E11.43 Type 2 diabetes mellitus with diabetic autonomic (poly)neuropathy; K31.84 Gastroparesis; E11.319 Type 2 diabetes mellitus with unspecified diabetic retinopathy without macular edema; L84 Corns and callosities; F17.210 Nicotine dependence, cigarettes, uncomplicated; Z99.2 Dependence on renal dialysis; Z89.422 Acquired absence of other left toe(s); Z79.4 Long term (current) use of insulin; Z79.82 Long term (current) use of aspirin; Z79.899 Other long term (current) drug therapy; Y83.5 Amputation of limb(s) as the cause of abnormal reaction of the patient, or of later complication, without mention of misadventure at the time of the procedure
CPT/HCPCS: 11042

== ENCOUNTER → 2018-06-10 | Outpatient (CLI) | payer MEDICARE, OTHER | END | disposition home or self-care (01) | LOC: RADPV 08:02 | PROVIDERS: ATTEND Internal Medicine Cardiovascular Disease | DX: I73.9 Peripheral vascular disease, unspecified (principal); L97.919 Non-pressure chronic ulcer of unspecified part of right lower leg with unspecified severity | CPT/HCPCS: 93925 ==

== ENCOUNTER → 2018-06-10 | Outpatient (CLI) | payer MEDICARE, OTHER ==
[2018-06-10 08:15] VITALS: BP 147/68
== END | disposition home or self-care (01) ==
LOC: HBOWC 07:59
PROVIDERS: ATTEND Internal Medicine
DX: T81.49XA Infection following a procedure, other surgical site, initial encounter (principal); E11.621 Type 2 diabetes mellitus with foot ulcer; L97.512 Non-pressure chronic ulcer of other part of right foot with fat layer exposed; E11.51 Type 2 diabetes mellitus with diabetic peripheral angiopathy without gangrene; E11.22 Type 2 diabetes mellitus with diabetic chronic kidney disease; I13.2 Hypertensive heart and chronic kidney disease with heart failure and with stage 5 chronic kidney disease, or end stage renal disease; I50.22 Chronic systolic (congestive) heart failure; N18.6 End stage renal disease; J44.9 Chronic obstructive pulmonary disease, unspecified; L84 Corns and callosities; E11.43 Type 2 diabetes mellitus with diabetic autonomic (poly)neuropathy; K31.84 Gastroparesis; E11.69 Type 2 diabetes mellitus with other specified complication; M86.9 Osteomyelitis, unspecified; E11.610 Type 2 diabetes mellitus with diabetic neuropathic arthropathy; E11.319 Type 2 diabetes mellitus with unspecified diabetic retinopathy without macular edema; E66.9 Obesity, unspecified; E78.00 Pure hypercholesterolemia, unspecified; G47.30 Sleep apnea, unspecified; F17.210 Nicotine dependence, cigarettes, uncomplicated; Z99.2 Dependence on renal dialysis; Z79.4 Long term (current) use of insulin; Z79.82 Long term (current) use of aspirin; Z89.422 Acquired absence of other left toe(s); Z89.412 Acquired absence of left great toe; Y83.8 Other surgical procedures as the cause of abnormal reaction of the patient, or of later complication, without mention of misadventure at the time of the procedure
CPT/HCPCS: 11042

== ENCOUNTER → 2018-06-17 | Outpatient (CLI) | payer MEDICARE, OTHER ==
[2018-06-17 08:33] VITALS: BP 131/72
== END | disposition home or self-care (01) ==
LOC: HBOWC 08:20
PROVIDERS: ATTEND Internal Medicine
DX: E11.621 Type 2 diabetes mellitus with foot ulcer (principal); L97.511 Non-pressure chronic ulcer of other part of right foot limited to breakdown of skin; E11.610 Type 2 diabetes mellitus with diabetic neuropathic arthropathy; E11.51 Type 2 diabetes mellitus with diabetic peripheral angiopathy without gangrene; I25.10 Atherosclerotic heart disease of native coronary artery without angina pectoris; J44.9 Chronic obstructive pulmonary disease, unspecified; E11.69 Type 2 diabetes mellitus with other specified complication; M86.9 Osteomyelitis, unspecified; E78.00 Pure hypercholesterolemia, unspecified; E66.9 Obesity, unspecified; G47.30 Sleep apnea, unspecified; E11.22 Type 2 diabetes mellitus with diabetic chronic kidney disease; I13.2 Hypertensive heart and chronic kidney disease with heart failure and with stage 5 chronic kidney disease, or end stage renal disease; N18.6 End stage renal disease; I50.22 Chronic systolic (congestive) heart failure; E11.43 Type 2 diabetes mellitus with diabetic autonomic (poly)neuropathy; K31.84 Gastroparesis; E11.319 Type 2 diabetes mellitus with unspecified diabetic retinopathy without macular edema; L84 Corns and callosities; F17.210 Nicotine dependence, cigarettes, uncomplicated; Z99.2 Dependence on renal dialysis; Z89.422 Acquired absence of other left toe(s); Z79.4 Long term (current) use of insulin; Z79.82 Long term (current) use of aspirin; Z79.899 Other long term (current) drug therapy; Y83.5 Amputation of limb(s) as the cause of abnormal reaction of the patient, or of later complication, without mention of misadventure at the time of the procedure
CPT/HCPCS: 11042

== ENCOUNTER → 2018-06-24 | Outpatient (CLI) | payer MEDICARE, OTHER ==
[2018-06-24 08:10] VITALS: BP 149/68
== END | disposition home or self-care (01) ==
LOC: MSR 08:10
PROVIDERS: ATTEND Internal Medicine
DX: E11.621 Type 2 diabetes mellitus with foot ulcer (principal); L97.519 Non-pressure chronic ulcer of other part of right foot with unspecified severity; E11.610 Type 2 diabetes mellitus with diabetic neuropathic arthropathy; E11.51 Type 2 diabetes mellitus with diabetic peripheral angiopathy without gangrene; E11.22 Type 2 diabetes mellitus with diabetic chronic kidney disease; N18.6 End stage renal disease; N39.0 Urinary tract infection, site not specified
CPT/HCPCS: 73721

== ENCOUNTER → 2018-07-01 | Outpatient (CLI) | payer MEDICARE, OTHER ==
[~2018-07-01] MED LIST changes: +DOXY100C PO
[2018-07-01 08:05] VITALS: BP 141/78
== END | disposition home or self-care (01) ==
LOC: HBOWC 07:58
PROVIDERS: ATTEND Internal Medicine
DX: E11.621 Type 2 diabetes mellitus with foot ulcer (principal); L97.511 Non-pressure chronic ulcer of other part of right foot limited to breakdown of skin; E11.610 Type 2 diabetes mellitus with diabetic neuropathic arthropathy; E11.51 Type 2 diabetes mellitus with diabetic peripheral angiopathy without gangrene; I25.10 Atherosclerotic heart disease of native coronary artery without angina pectoris; J44.9 Chronic obstructive pulmonary disease, unspecified; E11.69 Type 2 diabetes mellitus with other specified complication; M86.9 Osteomyelitis, unspecified; E78.00 Pure hypercholesterolemia, unspecified; E66.9 Obesity, unspecified; G47.30 Sleep apnea, unspecified; E11.22 Type 2 diabetes mellitus with diabetic chronic kidney disease; I13.2 Hypertensive heart and chronic kidney disease with heart failure and with stage 5 chronic kidney disease, or end stage renal disease; N18.6 End stage renal disease; I50.22 Chronic systolic (congestive) heart failure; E11.43 Type 2 diabetes mellitus with diabetic autonomic (poly)neuropathy; K31.84 Gastroparesis; E11.319 Type 2 diabetes mellitus with unspecified diabetic retinopathy without macular edema; L84 Corns and callosities; F17.210 Nicotine dependence, cigarettes, uncomplicated; Z99.2 Dependence on renal dialysis; Z89.422 Acquired absence of other left toe(s); Z79.4 Long term (current) use of insulin; Z79.82 Long term (current) use of aspirin; Z79.899 Other long term (current) drug therapy; Y83.5 Amputation of limb(s) as the cause of abnormal reaction of the patient, or of later complication, without mention of misadventure at the time of the procedure
CPT/HCPCS: 11042

== ENCOUNTER → 2018-07-08 | Outpatient (CLI) | payer MEDICARE, OTHER ==
[~2018-07-08] MED LIST changes: -SULF1TAB42 PO
[2018-07-08 08:05] VITALS: BP 125/64
== END | disposition home or self-care (01) ==
LOC: HBOWC 08:05
PROVIDERS: ATTEND Internal Medicine
DX: E11.621 Type 2 diabetes mellitus with foot ulcer (principal); L97.512 Non-pressure chronic ulcer of other part of right foot with fat layer exposed; E11.622 Type 2 diabetes mellitus with other skin ulcer; L97.811 Non-pressure chronic ulcer of other part of right lower leg limited to breakdown of skin; E11.610 Type 2 diabetes mellitus with diabetic neuropathic arthropathy; E11.51 Type 2 diabetes mellitus with diabetic peripheral angiopathy without gangrene; E11.22 Type 2 diabetes mellitus with diabetic chronic kidney disease; I13.2 Hypertensive heart and chronic kidney disease with heart failure and with stage 5 chronic kidney disease, or end stage renal disease; I50.22 Chronic systolic (congestive) heart failure; N18.6 End stage renal disease; L84 Corns and callosities; I25.10 Atherosclerotic heart disease of native coronary artery without angina pectoris; J44.9 Chronic obstructive pulmonary disease, unspecified; E11.43 Type 2 diabetes mellitus with diabetic autonomic (poly)neuropathy; K31.84 Gastroparesis; E78.00 Pure hypercholesterolemia, unspecified; E11.319 Type 2 diabetes mellitus with unspecified diabetic retinopathy without macular edema; E11.69 Type 2 diabetes mellitus with other specified complication; M86.9 Osteomyelitis, unspecified; G47.30 Sleep apnea, unspecified; F17.210 Nicotine dependence, cigarettes, uncomplicated; E66.9 Obesity, unspecified; Z99.2 Dependence on renal dialysis; Z79.82 Long term (current) use of aspirin; Z79.4 Long term (current) use of insulin; Z89.422 Acquired absence of other left toe(s); Z89.412 Acquired absence of left great toe
CPT/HCPCS: 11042

== ENCOUNTER → 2018-07-15 | Outpatient (CLI) | payer MEDICARE, OTHER ==
[2018-07-15 08:28] VITALS: BP 131/61
[2018-07-15 11:08] LABS: BASOPHILS % (AUTO) 0.4 % (0.0-2.0); EOSINOPHILS % (AUTO) 1.5 % (1.0-6.0); HEMATOCRIT 36.4 % (41-53); HEMOGLOBIN 11.7 g/dL (13.5-17.5); LYMPHOCYTES # (AUTO) 0.7 K/uL (1.0-4.8); LYMPHOCYTES % (AUTO) 10.4 % (22.0-44.0); MEAN CORPUSCULAR HEMOGLOBIN 29.3 pg (26.0-34.0); MEAN CORPUSCULAR HGB CONC 32.1 G/dL (31.0-37.0); MEAN CORPUSCULAR VOLUME 91 fL (80-100); MONOCYTES # (AUTO) 0.5 K/uL (0.1-1.0); MONOCYTES % (AUTO) 6.9 % (2.0-9.0); NEUTROPHILS # (AUTO) 5.7 K/uL (1.8-7.7); NEUTROPHILS % (AUTO) 80.8 % (40.0-70.0); PLATELET COUNT (AUTO) 206 K/uL (150-450); RED BLOOD CELL COUNT(AUTO) 3.98 MIL/uL (4.50-5.90); RED CELL DISTRIBUTION WIDTH 19.5 % (11.5-14.5)
[2018-07-15 11:16] LABS: CALCIUM, TOTAL 8.8 mg/dL (8.8-10.5); CREATININE 5.38 mg/dL (0.60-1.30); POTASSIUM 5.7 mmol/L (3.5-5.1)
[2018-07-15 11:20] LABS: INR 1.1 (0.9-1.1)
== END | disposition home or self-care (01) ==
LOC: HBOWC 08:05
PROVIDERS: ATTEND Internal Medicine
DX: E11.621 Type 2 diabetes mellitus with foot ulcer (principal); L97.519 Non-pressure chronic ulcer of other part of right foot with unspecified severity; E11.22 Type 2 diabetes mellitus with diabetic chronic kidney disease; N18.6 End stage renal disease; E11.51 Type 2 diabetes mellitus with diabetic peripheral angiopathy without gangrene; E11.610 Type 2 diabetes mellitus with diabetic neuropathic arthropathy; N39.0 Urinary tract infection, site not specified; Z72.0 Tobacco use

== ENCOUNTER → 2018-08-19 | Outpatient (CLI) | payer MEDICARE, OTHER ==
[~2018-08-19] MED LIST changes: +APIX2.5T PO
[2018-08-19 08:30] VITALS: BP 137/66
== END | disposition home or self-care (01) ==
LOC: HBOWC 08:05
PROVIDERS: ATTEND Internal Medicine
DX: E11.621 Type 2 diabetes mellitus with foot ulcer (principal); L97.512 Non-pressure chronic ulcer of other part of right foot with fat layer exposed; E11.610 Type 2 diabetes mellitus with diabetic neuropathic arthropathy; E11.51 Type 2 diabetes mellitus with diabetic peripheral angiopathy without gangrene; L84 Corns and callosities; E11.22 Type 2 diabetes mellitus with diabetic chronic kidney disease; I13.2 Hypertensive heart and chronic kidney disease with heart failure and with stage 5 chronic kidney disease, or end stage renal disease; N18.6 End stage renal disease; I50.22 Chronic systolic (congestive) heart failure; I25.10 Atherosclerotic heart disease of native coronary artery without angina pectoris; J44.9 Chronic obstructive pulmonary disease, unspecified; E78.00 Pure hypercholesterolemia, unspecified; E66.9 Obesity, unspecified; G47.30 Sleep apnea, unspecified; E11.43 Type 2 diabetes mellitus with diabetic autonomic (poly)neuropathy; E11.319 Type 2 diabetes mellitus with unspecified diabetic retinopathy without macular edema; F17.210 Nicotine dependence, cigarettes, uncomplicated; Z89.412 Acquired absence of left great toe; Z89.422 Acquired absence of other left toe(s); Z99.2 Dependence on renal dialysis; Z79.4 Long term (current) use of insulin; Z79.82 Long term (current) use of aspirin
CPT/HCPCS: 11042

== ENCOUNTER → 2018-09-02 | Outpatient (CLI) | payer MEDICARE, OTHER ==
[~2018-09-02] MED LIST changes: -ASPI-1182 PO; -DOXY100C PO
[2018-09-02 08:24] VITALS: BP 127/72
== END | disposition home or self-care (01) ==
LOC: HBOWC 08:13
PROVIDERS: ATTEND Internal Medicine
DX: E11.621 Type 2 diabetes mellitus with foot ulcer (principal); L97.512 Non-pressure chronic ulcer of other part of right foot with fat layer exposed; L97.421 Non-pressure chronic ulcer of left heel and midfoot limited to breakdown of skin; E11.622 Type 2 diabetes mellitus with other skin ulcer; L97.821 Non-pressure chronic ulcer of other part of left lower leg limited to breakdown of skin; L97.811 Non-pressure chronic ulcer of other part of right lower leg limited to breakdown of skin; L84 Corns and callosities; E11.610 Type 2 diabetes mellitus with diabetic neuropathic arthropathy; E11.51 Type 2 diabetes mellitus with diabetic peripheral angiopathy without gangrene; I25.10 Atherosclerotic heart disease of native coronary artery without angina pectoris; J44.9 Chronic obstructive pulmonary disease, unspecified; E11.43 Type 2 diabetes mellitus with diabetic autonomic (poly)neuropathy; K31.84 Gastroparesis; E78.00 Pure hypercholesterolemia, unspecified; E11.319 Type 2 diabetes mellitus with unspecified diabetic retinopathy without macular edema; E11.22 Type 2 diabetes mellitus with diabetic chronic kidney disease; I13.2 Hypertensive heart and chronic kidney disease with heart failure and with stage 5 chronic kidney disease, or end stage renal disease; N18.6 End stage renal disease; I50.22 Chronic systolic (congestive) heart failure; E11.69 Type 2 diabetes mellitus with other specified complication; M86.9 Osteomyelitis, unspecified; E66.9 Obesity, unspecified; G47.30 Sleep apnea, unspecified; F17.210 Nicotine dependence, cigarettes, uncomplicated; Z79.82 Long term (current) use of aspirin; Z79.4 Long term (current) use of insulin; Z95.820 Peripheral vascular angioplasty status with implants and grafts; Z99.2 Dependence on renal dialysis; Z89.412 Acquired absence of left great toe; Z89.422 Acquired absence of other left toe(s)
CPT/HCPCS: 11042

== ENCOUNTER → 2018-09-16 | Outpatient (CLI) | payer MEDICARE, OTHER ==
[2018-09-16 08:25] VITALS: BP 145/76
== END | disposition home or self-care (01) ==
LOC: HBOWC 08:17
PROVIDERS: ATTEND Internal Medicine
DX: E11.621 Type 2 diabetes mellitus with foot ulcer (principal); L97.512 Non-pressure chronic ulcer of other part of right foot with fat layer exposed; L97.421 Non-pressure chronic ulcer of left heel and midfoot limited to breakdown of skin; E11.622 Type 2 diabetes mellitus with other skin ulcer; L97.821 Non-pressure chronic ulcer of other part of left lower leg limited to breakdown of skin; L97.811 Non-pressure chronic ulcer of other part of right lower leg limited to breakdown of skin; E11.610 Type 2 diabetes mellitus with diabetic neuropathic arthropathy; E11.51 Type 2 diabetes mellitus with diabetic peripheral angiopathy without gangrene; L84 Corns and callosities; E11.22 Type 2 diabetes mellitus with diabetic chronic kidney disease; I13.2 Hypertensive heart and chronic kidney disease with heart failure and with stage 5 chronic kidney disease, or end stage renal disease; I50.22 Chronic systolic (congestive) heart failure; N18.6 End stage renal disease; R06.02 Shortness of breath; E78.5 Hyperlipidemia, unspecified; E55.9 Vitamin D deficiency, unspecified; I25.10 Atherosclerotic heart disease of native coronary artery without angina pectoris; J44.9 Chronic obstructive pulmonary disease, unspecified; E11.43 Type 2 diabetes mellitus with diabetic autonomic (poly)neuropathy; K31.84 Gastroparesis; E11.69 Type 2 diabetes mellitus with other specified complication; M86.9 Osteomyelitis, unspecified; E78.00 Pure hypercholesterolemia, unspecified; E11.319 Type 2 diabetes mellitus with unspecified diabetic retinopathy without macular edema; E66.9 Obesity, unspecified; G47.30 Sleep apnea, unspecified; F17.210 Nicotine dependence, cigarettes, uncomplicated; Z95.820 Peripheral vascular angioplasty status with implants and grafts; Z79.4 Long term (current) use of insulin; Z79.82 Long term (current) use of aspirin; Z99.2 Dependence on renal dialysis; Z89.412 Acquired absence of left great toe; Z89.422 Acquired absence of other left toe(s)
CPT/HCPCS: 11042

== ENCOUNTER 2018-12-28 08:46 | Inpatient (IN) | payer MEDICARE, OTHER ==
[~2018-12-28] VITALS: Ht 175.3 cm; Wt 98.3 kg
[~2018-12-28 08:46] MED LIST changes: +AMOX1TAB15 PO; +ASPI81TA87 PO; -CALC667C PO; +DULO30CA2 PO; +PHOSLOC PO
[2018-12-28 09:24] LABS: GLUCOSE,POINT OF CARE 256 MG/DL (70-110)
[2018-12-28 09:51] LABS: BASOPHILS % (AUTO) 0.4 % (0.0-2.0); EOSINOPHILS % (AUTO) 0.4 % (1.0-6.0); HEMOGLOBIN 10.4 g/dL (13.5-17.5); LYMPHOCYTES # (AUTO) 0.5 K/uL (1.0-4.8); LYMPHOCYTES % (AUTO) 3.9 % (22.0-44.0); MEAN CORPUSCULAR HEMOGLOBIN 26.4 pg (26.0-34.0); MEAN CORPUSCULAR HGB CONC 30.6 G/dL (31.0-37.0); MEAN CORPUSCULAR VOLUME 86 fL (80-100); MONOCYTES # (AUTO) 0.7 K/uL (0.1-1.0); MONOCYTES % (AUTO) 5.9 % (2.0-9.0); NEUTROPHILS # (AUTO) 11.3 K/uL (1.8-7.7); PLATELET COUNT (AUTO) 278 K/uL (150-450); RED BLOOD CELL COUNT(AUTO) 3.95 MIL/uL (4.50-5.90); RED CELL DISTRIBUTION WIDTH 21.5 % (11.5-14.5)
[2018-12-28 10:02] LABS: NEUTROPHILS % (AUTO) 89.4 % (40.0-70.0)
[2018-12-28 10:04] LABS: INR 1.1 (0.9-1.1); PROTHROMBIN TIME 11.4 SEC (9.4-11.6)
[2018-12-28 10:13] LABS: CREATININE 4.2 mg/dL (0.60-1.30); POTASSIUM 3.5 mmol/L (3.5-5.1)
[2018-12-28 10:19] LABS: ALBUMIN 2.4 g/dL (3.4-5.0); BILIRUBIN,TOTAL 1.6 mg/dL (0.1-1.0); TOTAL PROTEIN, SERUM 7.5 g/dL (6.4-8.2)
[2018-12-28] MEDS ORDERED: NITROGLYCERIN 2% (1 GM=INCH) PACKET TP ONE (11:15)
[2018-12-28] MEDS ORDERED: FUROSEMIDE 40 MG/4 ML VIAL IVP ONE (11:15)
[2018-12-28 18:05] VITALS: BP 126/75
[2018-12-28] MEDS: VITAMIN B COMP/VIT C/FOLIC ACID CAPSULE PO SCH (18:25)
[2018-12-28 19:28] VITALS: BP 111/77
[2018-12-28] MEDS ORDERED: ONDANSETRON HCL 4 MG/2 ML VIAL IVP PRN (22:00)
[2018-12-28] MEDS ORDERED: ACETAMINOPHEN 325 MG TABLET PO PRN (22:00)
[2018-12-28] MEDS ORDERED: MAGNESIUM HYDROXIDE SUSPENSION 30 ML UDCUP PO PRN (22:00)
[2018-12-28] MEDS ORDERED: 0.9% SODIUM CHLORIDE 10 ML SYRINGE IVP PRN (22:00)
[2018-12-28] MEDS ORDERED: DEXTROSE 50%-WATER 25 GM/50 ML SYRINGE IVP PRN (22:15)
[2018-12-28] MEDS: APIXABAN 2.5 MG TABLET PO SCH (22:43)
[2018-12-28] MEDS: DOCUSATE SODIUM 100 MG CAPSULE PO SCH (22:43)
[2018-12-28] MEDS: ATORVASTATIN CALCIUM 20 MG TABLET PO SCH (22:43)
[2018-12-28] MEDS: INSULIN LISPRO 100 UNITS/ML SQ PRN (22:45)
[2018-12-28 23:12] VITALS: BP 113/71
[2018-12-28] MEDS ORDERED: METOPROLOL TARTRATE 25 MG TABLET PO ONE (23:15)
[2018-12-28] MEDS: RANOLAZINE 500 MG ER TABLET PO SCH (23:25)
[2018-12-28] MEDS: GuaiFENesin/D-METHORPHAN [SUGAR-FREE] 200-20MG/10 ML SYRUP UDCUP PO PRN (23:26)
[2018-12-29] MEDS ORDERED: 0.9% SODIUM CHLORIDE 5 ML NEB SOLUTION NEB ONE ×6 (02:28→23:16)
[2018-12-29] MEDS: ALBUTEROL SULFATE 2.5 MG/0.5 ML NEB SOLUTION NEB SCH ×7 (03:01→23:24)
[2018-12-29 04:39] VITALS: BP 108/72
[2018-12-29 05:32] LABS: BASOPHILS % (AUTO) 0.3 % (0.0-2.0); EOSINOPHILS % (AUTO) 1.4 % (1.0-6.0); HEMATOCRIT 30.5 % (41-53); HEMOGLOBIN 9.5 g/dL (13.5-17.5); LYMPHOCYTES # (AUTO) 0.9 K/uL (1.0-4.8); LYMPHOCYTES % (AUTO) 7.2 % (22.0-44.0); MEAN CORPUSCULAR HGB CONC 31.1 G/dL (31.0-37.0); MEAN CORPUSCULAR VOLUME 87 fL (80-100); MONOCYTES # (AUTO) 1.1 K/uL (0.1-1.0); MONOCYTES % (AUTO) 9.4 % (2.0-9.0); NEUTROPHILS # (AUTO) 9.8 K/uL (1.8-7.7); NEUTROPHILS % (AUTO) 81.7 % (40.0-70.0); PLATELET COUNT (AUTO) 255 K/uL (150-450); RED BLOOD CELL COUNT(AUTO) 3.51 MIL/uL (4.50-5.90); RED CELL DISTRIBUTION WIDTH 21.3 % (11.5-14.5)
[2018-12-29 06:42] LABS: CALCIUM, TOTAL 8.9 mg/dL (8.8-10.5); CREATININE 4.68 mg/dL (0.60-1.30); MAGNESIUM 2.1 mg/dL (1.80-2.40); PHOSPHORUS 5.6 mg/dL (2.5-4.9); POTASSIUM 3.7 mmol/L (3.5-5.1)
[2018-12-29 07:04] VITALS: BP 99/72
[2018-12-29] MEDS: DULoxetine HCL 30 MG CAPSULE PO SCH (08:55)
[2018-12-29] MEDS: RANOLAZINE 500 MG ER TABLET PO SCH ×2 (08:55→20:20)
[2018-12-29] MEDS: CALCIUM ACETATE 667 MG CAPSULE PO SCH ×3 (08:55→17:33)
[2018-12-29] MEDS: PANTOPRAZOLE SODIUM 40 MG DR TABLET PO SCH (08:55)
[2018-12-29] MEDS: APIXABAN 2.5 MG TABLET PO SCH ×2 (08:55→20:20)
[2018-12-29] MEDS: DOCUSATE SODIUM 100 MG CAPSULE PO SCH ×2 (08:55→20:20)
[2018-12-29] MEDS: VITAMIN B COMP/VIT C/FOLIC ACID CAPSULE PO SCH (08:55)
[2018-12-29] MEDS: METOPROLOL TARTRATE 25 MG TABLET PO SCH ×3 (08:56→20:11)
[2018-12-29] MEDS: ASPIRIN 81 MG EC TABLET PO SCH (08:56)
[2018-12-29] MEDS: CHOLECALCIFEROL (VIT D3) 1,000 UNITS TABLET PO SCH (08:56)
[2018-12-29] MEDS ORDERED: AmLODIPine BESYLATE 10 MG TABLET PO SCH (09:00)
[2018-12-29] MEDS ORDERED: SODIUM CHLORIDE 0.9% 2,000 ML IV ONE (09:53)
[2018-12-29] MEDS: INSULIN LISPRO 100 UNITS/ML SQ PRN ×3 (12:01→20:27)
[2018-12-29 12:02] VITALS: BP 106/73
[2018-12-29 15:06] VITALS: BP 115/75
[2018-12-29 15:56] LABS: ABG CARBOXYHEMOGLOBIN 0.6 % (0.0-1.5); ABG HCO3 27.9 mmol/L (22.0-26.0); ABG METHEMOGLOBIN 0.3 % (0.0-1.5); ABG OXYGEN CONTENT 14.1 mL/dL (15.0-23.0); ABG OXYGEN SATURATION 93.5 % (95.0-98.0); ABG OXYHEMOGLOBIN 92.7 % (94.0-100.0); ABG PCO2 36 mmHg (35-45); ABG PH 7.498 (7.35-7.450); ABG TOTAL HEMOGLOBIN 10.8 G/dL (12.0-18.0); O2 DEVICE,BLOOD GAS CANNULA (ROOM AIR); SITE, BLOOD GAS RT RADIAL; SOURCE, BLOOD GAS ARTERIAL; TEMPERATURE, FAHRENHEIT, BG 98.6 FAHREN (96.0-98.6)
[2018-12-29] MEDS: GuaiFENesin/D-METHORPHAN [SUGAR-FREE] 200-20MG/10 ML SYRUP UDCUP PO PRN (17:33)
[2018-12-29 20:20] VITALS: BP 83/49
[2018-12-29] MEDS: ATORVASTATIN CALCIUM 20 MG TABLET PO SCH (20:20)
[2018-12-29 21:21] LABS: GLUCOMETER DEV NAME(LOC) 5S.2; GLUCOSE,POINT OF CARE 137 MG/DL (70-110)
[2018-12-29 23:47] VITALS: BP 91/50
[2018-12-29 23:50] LABS: GLUCOMETER DEV NAME(LOC) 5S.1; GLUCOSE,POINT OF CARE 196 MG/DL (70-110)
[2018-12-29 23:50] LABS: GLUCOMETER DEV NAME(LOC) 5S.1; GLUCOSE,POINT OF CARE 278 MG/DL (70-110)
[2018-12-29 23:50] LABS: GLUCOMETER DEV NAME(LOC) 5S.1; GLUCOSE,POINT OF CARE 107 MG/DL (70-110)
[2018-12-29 23:51] LABS: GLUCOMETER DEV NAME(LOC) 5S.1; GLUCOSE,POINT OF CARE 267 MG/DL (70-110)
[2018-12-30] MEDS ORDERED: 0.9% SODIUM CHLORIDE 5 ML NEB SOLUTION NEB ONE ×6 (01:29→21:59)
[2018-12-30] MEDS: ALBUTEROL SULFATE 2.5 MG/0.5 ML NEB SOLUTION NEB SCH ×6 (02:00→22:19)
[2018-12-30 05:15] VITALS: BP 106/68
[2018-12-30 06:38] LABS: BASOPHILS % (AUTO) 0.3 % (0.0-2.0); EOSINOPHILS % (AUTO) 0.9 % (1.0-6.0); HEMATOCRIT 31.4 % (41-53); HEMOGLOBIN 9.7 g/dL (13.5-17.5); LYMPHOCYTES # (AUTO) 1.1 K/uL (1.0-4.8); LYMPHOCYTES % (AUTO) 8.9 % (22.0-44.0); MEAN CORPUSCULAR HEMOGLOBIN 26.7 pg (26.0-34.0); MEAN CORPUSCULAR VOLUME 86 fL (80-100); MONOCYTES # (AUTO) 0.9 K/uL (0.1-1.0); MONOCYTES % (AUTO) 7.6 % (2.0-9.0); NEUTROPHILS % (AUTO) 82.3 % (40.0-70.0); PLATELET COUNT (AUTO) 272 K/uL (150-450); RED BLOOD CELL COUNT(AUTO) 3.65 MIL/uL (4.50-5.90); RED CELL DISTRIBUTION WIDTH 21.3 % (11.5-14.5)
[2018-12-30 06:46] LABS: CALCIUM, TOTAL 8.9 mg/dL (8.8-10.5); CREATININE 3.47 mg/dL (0.60-1.30); POTASSIUM 4.4 mmol/L (3.5-5.1)
[2018-12-30 07:09] LABS: GLUCOMETER DEV NAME(LOC) 5S.1; GLUCOSE,POINT OF CARE 103 MG/DL (70-110)
[2018-12-30 08:25] VITALS: BP 113/80
[2018-12-30] MEDS: CALCIUM ACETATE 667 MG CAPSULE PO SCH ×3 (08:29→17:46)
[2018-12-30] MEDS: DULoxetine HCL 30 MG CAPSULE PO SCH (08:30)
[2018-12-30] MEDS: VITAMIN B COMP/VIT C/FOLIC ACID CAPSULE PO SCH (08:30)
[2018-12-30] MEDS: RANOLAZINE 500 MG ER TABLET PO SCH ×2 (08:30→20:00)
[2018-12-30] MEDS: DOCUSATE SODIUM 100 MG CAPSULE PO SCH ×2 (08:30→20:00)
[2018-12-30] MEDS: APIXABAN 2.5 MG TABLET PO SCH ×2 (08:30→20:00)
[2018-12-30] MEDS: ASPIRIN 81 MG EC TABLET PO SCH (08:31)
[2018-12-30] MEDS: PANTOPRAZOLE SODIUM 40 MG DR TABLET PO SCH (08:31)
[2018-12-30] MEDS: METOPROLOL TARTRATE 25 MG TABLET PO SCH ×3 (08:32→20:02)
[2018-12-30] MEDS: CHOLECALCIFEROL (VIT D3) 1,000 UNITS TABLET PO SCH (08:32)
[2018-12-30] MEDS: OxyCODONE HCL/ACETAMINOPHEN 5-325 MG TABLET PO PRN ×2 (08:35→17:47)
[2018-12-30 12:15] LABS: GLUCOMETER DEV NAME(LOC) 5S.1; GLUCOSE,POINT OF CARE 242 MG/DL (70-110)
[2018-12-30] MEDS: INSULIN LISPRO 100 UNITS/ML SQ PRN ×3 (12:20→20:38)
[2018-12-30] MEDS: EPOETIN ALFA 10,000 UNITS/ML VIAL SQ SCH (12:22)
[2018-12-30 12:30] VITALS: BP 107/64
[2018-12-30] MEDS ORDERED: ZOLPIDEM TARTRATE 10 MG TABLET PO PRN (16:30)
[2018-12-30 17:00] VITALS: BP 105/65
[2018-12-30] MEDS: ATORVASTATIN CALCIUM 20 MG TABLET PO SCH (20:00)
[2018-12-30 20:01] VITALS: BP 96/64
[2018-12-30 20:04] LABS: GLUCOMETER DEV NAME(LOC) 5S.1; GLUCOSE,POINT OF CARE 166 MG/DL (70-110)
[2018-12-31 00:30] LABS: GLUCOMETER DEV NAME(LOC) 5S.1; GLUCOSE,POINT OF CARE 232 MG/DL (70-110)
[2018-12-31 01:10] VITALS: BP 103/60
[2018-12-31] MEDS ORDERED: 0.9% SODIUM CHLORIDE 5 ML NEB SOLUTION NEB ONE ×6 (03:06→22:45)
[2018-12-31] MEDS: ALBUTEROL SULFATE 2.5 MG/0.5 ML NEB SOLUTION NEB SCH ×6 (03:09→22:47)
[2018-12-31 05:02] VITALS: BP 98/64
[2018-12-31] MEDS: INSULIN LISPRO 100 UNITS/ML SQ PRN ×3 (06:01→18:21)
[2018-12-31 06:10] LABS: BASOPHILS % (AUTO) 0.3 % (0.0-2.0); HEMATOCRIT 31.9 % (41-53); HEMOGLOBIN 9.9 g/dL (13.5-17.5); LYMPHOCYTES # (AUTO) 0.9 K/uL (1.0-4.8); LYMPHOCYTES % (AUTO) 7.3 % (22.0-44.0); MEAN CORPUSCULAR HEMOGLOBIN 26.7 pg (26.0-34.0); MEAN CORPUSCULAR HGB CONC 31.1 G/dL (31.0-37.0); MEAN CORPUSCULAR VOLUME 86 fL (80-100); NEUTROPHILS % (AUTO) 83.4 % (40.0-70.0); PLATELET COUNT (AUTO) 280 K/uL (150-450); RED BLOOD CELL COUNT(AUTO) 3.71 MIL/uL (4.50-5.90); RED CELL DISTRIBUTION WIDTH 20.3 % (11.5-14.5)
[2018-12-31 06:24] LABS: CALCIUM, TOTAL 8.8 mg/dL (8.8-10.5); CREATININE 4.3 mg/dL (0.60-1.30); POTASSIUM 4.9 mmol/L (3.5-5.1)
[2018-12-31 07:59] VITALS: BP 92/62
[2018-12-31] MEDS: DULoxetine HCL 30 MG CAPSULE PO SCH (08:49)
[2018-12-31] MEDS: VITAMIN B COMP/VIT C/FOLIC ACID CAPSULE PO SCH (08:51)
[2018-12-31] MEDS: CALCIUM ACETATE 667 MG CAPSULE PO SCH ×3 (08:52→18:19)
[2018-12-31] MEDS: DOCUSATE SODIUM 100 MG CAPSULE PO SCH ×2 (08:52→20:25)
[2018-12-31] MEDS: CHOLECALCIFEROL (VIT D3) 1,000 UNITS TABLET PO SCH (08:52)
[2018-12-31] MEDS: ASPIRIN 81 MG EC TABLET PO SCH (08:53)
[2018-12-31] MEDS: PANTOPRAZOLE SODIUM 40 MG DR TABLET PO SCH (08:53)
[2018-12-31] MEDS: APIXABAN 2.5 MG TABLET PO SCH ×2 (08:53→20:25)
[2018-12-31] MEDS: METOPROLOL TARTRATE 25 MG TABLET PO SCH ×3 (08:54→20:24)
[2018-12-31] MEDS: RANOLAZINE 500 MG ER TABLET PO SCH ×2 (08:55→20:25)
[2018-12-31] MEDS ORDERED: SODIUM CHLORIDE 0.9% 2,000 ML IV ONE (09:32)
[2018-12-31 10:04] LABS: GLUCOMETER DEV NAME(LOC) 5S.1; GLUCOSE,POINT OF CARE 135 MG/DL (70-110)
[2018-12-31 11:17] VITALS: BP 105/68
[2018-12-31 12:50] LABS: GLUCOMETER DEV NAME(LOC) 5S.1; GLUCOSE,POINT OF CARE 187 MG/DL (70-110)
[2018-12-31 16:03] VITALS: BP 106/66
[2018-12-31 20:25] VITALS: BP 97/58
[2018-12-31] MEDS: ATORVASTATIN CALCIUM 20 MG TABLET PO SCH (20:25)
[2018-12-31] MEDS: OxyCODONE HCL/ACETAMINOPHEN 5-325 MG TABLET PO PRN (20:26)
[2018-12-31 21:34] LABS: GLUCOMETER DEV NAME(LOC) 5S.1; GLUCOSE,POINT OF CARE 162 MG/DL (70-110)
[2018-12-31 21:35] LABS: GLUCOMETER DEV NAME(LOC) 5S.1; GLUCOSE,POINT OF CARE 129 MG/DL (70-110)
[2019-01-01 00:59] VITALS: BP 114/61
[2019-01-01] MEDS: OxyCODONE HCL/ACETAMINOPHEN 5-325 MG TABLET PO PRN ×3 (01:59→16:59)
[2019-01-01] MEDS ORDERED: 0.9% SODIUM CHLORIDE 5 ML NEB SOLUTION NEB ONE ×6 (02:09→23:26)
[2019-01-01] MEDS: ALBUTEROL SULFATE 2.5 MG/0.5 ML NEB SOLUTION NEB SCH ×6 (02:33→23:28)
[2019-01-01 04:40] VITALS: BP 99/66
[2019-01-01 06:38] LABS: BASOPHILS % (AUTO) 0.4 % (0.0-2.0); EOSINOPHILS % (AUTO) 1.2 % (1.0-6.0); HEMATOCRIT 31.9 % (41-53); HEMOGLOBIN 9.6 g/dL (13.5-17.5); LYMPHOCYTES # (AUTO) 0.9 K/uL (1.0-4.8); LYMPHOCYTES % (AUTO) 7.4 % (22.0-44.0); MEAN CORPUSCULAR HGB CONC 30.1 G/dL (31.0-37.0); MEAN CORPUSCULAR VOLUME 86 fL (80-100); MONOCYTES # (AUTO) 1.1 K/uL (0.1-1.0); MONOCYTES % (AUTO) 8.6 % (2.0-9.0); NEUTROPHILS # (AUTO) 10.3 K/uL (1.8-7.7); NEUTROPHILS % (AUTO) 82.4 % (40.0-70.0); PLATELET COUNT (AUTO) 301 K/uL (150-450); RED BLOOD CELL COUNT(AUTO) 3.69 MIL/uL (4.50-5.90); RED CELL DISTRIBUTION WIDTH 20.7 % (11.5-14.5)
[2019-01-01 06:45] LABS: CREATININE 3.4 mg/dL (0.60-1.30); POTASSIUM 5.1 mmol/L (3.5-5.1)
[2019-01-01 07:53] VITALS: BP 104/65
[2019-01-01] MEDS: VITAMIN B COMP/VIT C/FOLIC ACID CAPSULE PO SCH (08:14)
[2019-01-01] MEDS: DOCUSATE SODIUM 100 MG CAPSULE PO SCH ×2 (08:14→21:57)
[2019-01-01] MEDS: ASPIRIN 81 MG EC TABLET PO SCH (08:14)
[2019-01-01] MEDS: METOPROLOL TARTRATE 25 MG TABLET PO SCH ×3 (08:15→21:00)
[2019-01-01] MEDS: PANTOPRAZOLE SODIUM 40 MG DR TABLET PO SCH (08:16)
[2019-01-01] MEDS: APIXABAN 2.5 MG TABLET PO SCH (08:16)
[2019-01-01] MEDS: CHOLECALCIFEROL (VIT D3) 1,000 UNITS TABLET PO SCH (08:16)
[2019-01-01] MEDS: CALCIUM ACETATE 667 MG CAPSULE PO SCH ×3 (08:16→18:11)
[2019-01-01] MEDS: RANOLAZINE 500 MG ER TABLET PO SCH ×2 (08:16→21:57)
[2019-01-01] MEDS: DULoxetine HCL 30 MG CAPSULE PO SCH (08:17)
[2019-01-01] MEDS: EPOETIN ALFA 10,000 UNITS/ML VIAL SQ SCH (08:19)
[2019-01-01 10:45] LABS: GLUCOMETER DEV NAME(LOC) 5S.1; GLUCOSE,POINT OF CARE 119 MG/DL (70-110)
[2019-01-01] MEDS ORDERED: HEPARIN SODIUM,PORCINE 5,000 UNITS/ML VIAL IVP PRN ×4 (11:30→13:41)
[2019-01-01] MEDS: INSULIN LISPRO 100 UNITS/ML SQ PRN ×2 (12:05→18:12)
[2019-01-01 12:20] LABS: BASOPHILS % (AUTO) 0.6 % (0.0-2.0); EOSINOPHILS % (AUTO) 0.6 % (1.0-6.0); HEMATOCRIT 32.3 % (41-53); HEMOGLOBIN 9.9 g/dL (13.5-17.5); LYMPHOCYTES # (AUTO) 0.9 K/uL (1.0-4.8); MEAN CORPUSCULAR HEMOGLOBIN 26.7 pg (26.0-34.0); MEAN CORPUSCULAR HGB CONC 30.7 G/dL (31.0-37.0); MEAN CORPUSCULAR VOLUME 87 fL (80-100); MONOCYTES # (AUTO) 0.9 K/uL (0.1-1.0); MONOCYTES % (AUTO) 7.1 % (2.0-9.0); NEUTROPHILS # (AUTO) 10.3 K/uL (1.8-7.7); NEUTROPHILS % (AUTO) 84.7 % (40.0-70.0); PLATELET COUNT (AUTO) 299 K/uL (150-450); RED BLOOD CELL COUNT(AUTO) 3.72 MIL/uL (4.50-5.90); RED CELL DISTRIBUTION WIDTH 20.8 % (11.5-14.5)
[2019-01-01 12:32] LABS: INR 1.2 (0.9-1.1)
[2019-01-01 12:45] VITALS: BP 105/55
[2019-01-01] MEDS: HEPARIN SODIUM 25000 UNITS/D5W 250 ML IV PRN (14:38)
[2019-01-01 15:30] VITALS: BP 119/71
[2019-01-01 19:05] LABS: GLUCOMETER DEV NAME(LOC) 5S.2; GLUCOSE,POINT OF CARE 177 MG/DL (70-110)
[2019-01-01 19:05] LABS: GLUCOMETER DEV NAME(LOC) 5S.2; GLUCOSE,POINT OF CARE 175 MG/DL (70-110)
[2019-01-01 20:15] VITALS: BP 102/62
[2019-01-01] MEDS: ATORVASTATIN CALCIUM 20 MG TABLET PO SCH (21:57)
[2019-01-02] VITALS: BP 100/64
[2019-01-02] MEDS: HEPARIN SODIUM,PORCINE 5,000 UNITS/ML VIAL IVP PRN ×2 (01:42→08:49)
[2019-01-02] MEDS: ALBUTEROL SULFATE 2.5 MG/0.5 ML NEB SOLUTION NEB SCH ×6 (03:59→23:23)
[2019-01-02 05:05] VITALS: BP 104/56
[2019-01-02 05:30] LABS: GLUCOMETER DEV NAME(LOC) 5S.2; GLUCOSE,POINT OF CARE 150 MG/DL (70-110)
[2019-01-02] MEDS: HEPARIN SODIUM 25000 UNITS/D5W 250 ML IV PRN ×2 (06:24→19:40)
[2019-01-02] MEDS: INSULIN LISPRO 100 UNITS/ML SQ PRN ×4 (06:26→20:40)
[2019-01-02 07:19] LABS: GLUCOMETER DEV NAME(LOC) 5S.1; GLUCOSE,POINT OF CARE 180 MG/DL (70-110)
[2019-01-02] MEDS ORDERED: 0.9% SODIUM CHLORIDE 5 ML NEB SOLUTION NEB ONE ×5 (07:47→23:19)
[2019-01-02 07:48] LABS: BASOPHILS % (AUTO) 0.5 % (0.0-2.0); EOSINOPHILS % (AUTO) 0.6 % (1.0-6.0); HEMATOCRIT 32.4 % (41-53); HEMOGLOBIN 10.1 g/dL (13.5-17.5); LYMPHOCYTES # (AUTO) 0.7 K/uL (1.0-4.8); LYMPHOCYTES % (AUTO) 5.8 % (22.0-44.0); MEAN CORPUSCULAR HEMOGLOBIN 26.7 pg (26.0-34.0); MEAN CORPUSCULAR HGB CONC 31.3 G/dL (31.0-37.0); MEAN CORPUSCULAR VOLUME 85 fL (80-100); MONOCYTES # (AUTO) 0.9 K/uL (0.1-1.0); PLATELET COUNT (AUTO) 358 K/uL (150-450); RED CELL DISTRIBUTION WIDTH 20.8 % (11.5-14.5)
[2019-01-02 08:04] LABS: NEUTROPHILS % (AUTO) 86.1 % (40.0-70.0)
[2019-01-02] MEDS ORDERED: SODIUM CHLORIDE 0.9% 2,000 ML IV ONE (08:05)
[2019-01-02 08:30] LABS: CALCIUM, TOTAL 9.1 mg/dL (8.8-10.5); CREATININE 4.3 mg/dL (0.60-1.30); MAGNESIUM 1.9 mg/dL (1.80-2.40); PHOSPHORUS 4.8 mg/dL (2.5-4.9); POTASSIUM 5.1 mmol/L (3.5-5.1)
[2019-01-02 08:38] VITALS: BP 110/69
[2019-01-02] MEDS: CHOLECALCIFEROL (VIT D3) 1,000 UNITS TABLET PO SCH (08:50)
[2019-01-02] MEDS: CALCIUM ACETATE 667 MG CAPSULE PO SCH ×3 (08:50→18:02)
[2019-01-02] MEDS: DULoxetine HCL 30 MG CAPSULE PO SCH (08:50)
[2019-01-02] MEDS: PANTOPRAZOLE SODIUM 40 MG DR TABLET PO SCH (08:50)
[2019-01-02] MEDS: VITAMIN B COMP/VIT C/FOLIC ACID CAPSULE PO SCH (08:50)
[2019-01-02] MEDS: DOCUSATE SODIUM 100 MG CAPSULE PO SCH ×2 (08:50→20:41)
[2019-01-02 09:08] LABS: % IRON SATURATION 19.2 % (30-44)
[2019-01-02 11:52] VITALS: BP 104/68
[2019-01-02] MEDS: RANOLAZINE 500 MG ER TABLET PO SCH ×2 (12:50→20:40)
[2019-01-02] MEDS: ASPIRIN 81 MG EC TABLET PO SCH (12:50)
[2019-01-02] MEDS: METOPROLOL TARTRATE 25 MG TABLET PO SCH ×3 (12:50→20:41)
[2019-01-02] MEDS: OxyCODONE HCL/ACETAMINOPHEN 5-325 MG TABLET PO PRN ×2 (12:54→18:08)
[2019-01-02 14:49] LABS: GLUCOMETER DEV NAME(LOC) 5S.1; GLUCOSE,POINT OF CARE 155 MG/DL (70-110)
[2019-01-02 15:00] VITALS: BP 96/53
[2019-01-02 20:10] LABS: GLUCOMETER DEV NAME(LOC) 5S.1; GLUCOSE,POINT OF CARE 132 MG/DL (70-110)
[2019-01-02] MEDS: ATORVASTATIN CALCIUM 20 MG TABLET PO SCH (20:40)
[2019-01-02 20:53] VITALS: BP 97/63
[2019-01-02 22:15] LABS: GLUCOMETER DEV NAME(LOC) 5S.1; GLUCOSE,POINT OF CARE 185 MG/DL (70-110)
[2019-01-03 00:45] VITALS: BP 117/69
[2019-01-03] MEDS ORDERED: 0.9% SODIUM CHLORIDE 5 ML NEB SOLUTION NEB ONE ×6 (02:06→22:35)
[2019-01-03] MEDS: ALBUTEROL SULFATE 2.5 MG/0.5 ML NEB SOLUTION NEB SCH ×6 (03:19→22:41)
[2019-01-03 04:08] VITALS: BP 109/61
[2019-01-03] MEDS: INSULIN LISPRO 100 UNITS/ML SQ PRN ×4 (05:50→21:28)
[2019-01-03 07:00] LABS: BASOPHILS % (AUTO) 0.4 % (0.0-2.0); EOSINOPHILS % (AUTO) 0.5 % (1.0-6.0); HEMATOCRIT 31.6 % (41-53); HEMOGLOBIN 9.7 g/dL (13.5-17.5); LYMPHOCYTES % (AUTO) 7.7 % (22.0-44.0); MEAN CORPUSCULAR HEMOGLOBIN 26.5 pg (26.0-34.0); MEAN CORPUSCULAR HGB CONC 30.6 G/dL (31.0-37.0); MEAN CORPUSCULAR VOLUME 87 fL (80-100); MONOCYTES # (AUTO) 0.8 K/uL (0.1-1.0); MONOCYTES % (AUTO) 6.4 % (2.0-9.0); NEUTROPHILS # (AUTO) 10.8 K/uL (1.8-7.7); PLATELET COUNT (AUTO) 365 K/uL (150-450); RED BLOOD CELL COUNT(AUTO) 3.66 MIL/uL (4.50-5.90)
[2019-01-03 08:12] VITALS: BP 135/56
[2019-01-03 08:28] LABS: ALBUMIN 2.1 g/dL (3.4-5.0); BILIRUBIN,TOTAL 1.2 mg/dL (0.1-1.0); CALCIUM, TOTAL 8.9 mg/dL (8.8-10.5); CREATININE 3.47 mg/dL (0.60-1.30); MAGNESIUM 1.8 mg/dL (1.80-2.40); POTASSIUM 4.5 mmol/L (3.5-5.1); TOTAL PROTEIN, SERUM 6.5 g/dL (6.4-8.2)
[2019-01-03] MEDS: VITAMIN B COMP/VIT C/FOLIC ACID CAPSULE PO SCH (08:46)
[2019-01-03] MEDS: CALCIUM ACETATE 667 MG CAPSULE PO SCH ×3 (08:46→17:44)
[2019-01-03] MEDS: DULoxetine HCL 30 MG CAPSULE PO SCH (08:46)
[2019-01-03] MEDS: PANTOPRAZOLE SODIUM 40 MG DR TABLET PO SCH (08:46)
[2019-01-03] MEDS: ASPIRIN 81 MG EC TABLET PO SCH (08:46)
[2019-01-03] MEDS: DOCUSATE SODIUM 100 MG CAPSULE PO SCH ×2 (08:46→21:12)
[2019-01-03] MEDS: RANOLAZINE 500 MG ER TABLET PO SCH ×2 (08:46→21:11)
[2019-01-03] MEDS: CHOLECALCIFEROL (VIT D3) 1,000 UNITS TABLET PO SCH (08:47)
[2019-01-03] MEDS: METOPROLOL TARTRATE 25 MG TABLET PO SCH ×3 (08:47→21:00)
[2019-01-03] MEDS: OxyCODONE HCL/ACETAMINOPHEN 5-325 MG TABLET PO PRN ×2 (08:59→21:25)
[2019-01-03 11:13] VITALS: BP 102/54
[2019-01-03] MEDS: HEPARIN SODIUM 25000 UNITS/D5W 250 ML IV PRN (12:01)
[2019-01-03 13:40] LABS: GLUCOMETER DEV NAME(LOC) 5S.2; GLUCOSE,POINT OF CARE 131 MG/DL (70-110)
[2019-01-03 13:41] LABS: GLUCOMETER DEV NAME(LOC) 5S.1; GLUCOSE,POINT OF CARE 214 MG/DL (70-110)
[2019-01-03 14:57] VITALS: BP 108/58
[2019-01-03] MEDS ORDERED: LIDOCAINE/PF 1% 2 ML VIAL IM ONE (17:51)
[2019-01-03 19:54] LABS: GLUCOMETER DEV NAME(LOC) 5S.2; GLUCOSE,POINT OF CARE 137 MG/DL (70-110)
[2019-01-03 20:23] VITALS: BP 95/61
[2019-01-03] MEDS: ATORVASTATIN CALCIUM 20 MG TABLET PO SCH (21:11)
[2019-01-04] VITALS (7 sets, daily range): BP systolic 95–119; BP diastolic 51–68
[2019-01-04] MEDS ORDERED: 0.9% SODIUM CHLORIDE 5 ML NEB SOLUTION NEB ONE ×5 (01:52→23:20)
[2019-01-04] MEDS: ALBUTEROL SULFATE 2.5 MG/0.5 ML NEB SOLUTION NEB SCH ×6 (02:38→23:21)
[2019-01-04 02:39] LABS: GLUCOMETER DEV NAME(LOC) 5S.2; GLUCOSE,POINT OF CARE 188 MG/DL (70-110)
[2019-01-04] MEDS: HEPARIN SODIUM 25000 UNITS/D5W 250 ML IV PRN ×2 (04:10→08:59)
[2019-01-04] MEDS: INSULIN LISPRO 100 UNITS/ML SQ PRN ×2 (06:06→12:14)
[2019-01-04 06:10] LABS: BASOPHILS % (AUTO) 0.6 % (0.0-2.0); EOSINOPHILS % (AUTO) 0.5 % (1.0-6.0); HEMATOCRIT 31.3 % (41-53); HEMOGLOBIN 9.8 g/dL (13.5-17.5); LYMPHOCYTES # (AUTO) 1.1 K/uL (1.0-4.8); LYMPHOCYTES % (AUTO) 7.6 % (22.0-44.0); MEAN CORPUSCULAR HEMOGLOBIN 26.7 pg (26.0-34.0); MEAN CORPUSCULAR HGB CONC 31.4 G/dL (31.0-37.0); MEAN CORPUSCULAR VOLUME 85 fL (80-100); MONOCYTES % (AUTO) 6.9 % (2.0-9.0); NEUTROPHILS # (AUTO) 12.1 K/uL (1.8-7.7); NEUTROPHILS % (AUTO) 84.4 % (40.0-70.0); PLATELET COUNT (AUTO) 370 K/uL (150-450); RED BLOOD CELL COUNT(AUTO) 3.68 MIL/uL (4.50-5.90); RED CELL DISTRIBUTION WIDTH 20.8 % (11.5-14.5)
[2019-01-04] MEDS: OxyCODONE HCL/ACETAMINOPHEN 5-325 MG TABLET PO PRN (06:20)
[2019-01-04 06:45] LABS: ALBUMIN 2.2 g/dL (3.4-5.0); BILIRUBIN,TOTAL 1.1 mg/dL (0.1-1.0); CALCIUM, TOTAL 9.1 mg/dL (8.8-10.5); CREATININE 4.48 mg/dL (0.60-1.30); MAGNESIUM 1.9 mg/dL (1.80-2.40); POTASSIUM 4.7 mmol/L (3.5-5.1); TOTAL PROTEIN, SERUM 7.1 g/dL (6.4-8.2)
[2019-01-04] MEDS: PANTOPRAZOLE SODIUM 40 MG DR TABLET PO SCH (08:30)
[2019-01-04] MEDS: DOCUSATE SODIUM 100 MG CAPSULE PO SCH ×2 (08:30→20:34)
[2019-01-04] MEDS: CALCIUM ACETATE 667 MG CAPSULE PO SCH ×3 (08:30→17:53)
[2019-01-04] MEDS: VITAMIN B COMP/VIT C/FOLIC ACID CAPSULE PO SCH (08:30)
[2019-01-04] MEDS: CHOLECALCIFEROL (VIT D3) 1,000 UNITS TABLET PO SCH (08:30)
[2019-01-04] MEDS: ASPIRIN 81 MG EC TABLET PO SCH (08:30)
[2019-01-04] MEDS: DULoxetine HCL 30 MG CAPSULE PO SCH (08:33)
[2019-01-04] MEDS: METOPROLOL TARTRATE 25 MG TABLET PO SCH ×3 (08:33→20:34)
[2019-01-04] MEDS: EPOETIN ALFA 10,000 UNITS/ML VIAL SQ SCH (08:34)
[2019-01-04] MEDS: RANOLAZINE 500 MG ER TABLET PO SCH ×2 (08:36→20:35)
[2019-01-04] MEDS ORDERED: HEPARIN SODIUM 25000 UNITS/D5W 250 ML IV PRN (10:30)
[2019-01-04] MEDS ORDERED: HEPARIN SODIUM,PORCINE 5,000 UNITS/ML VIAL IVP PRN ×2 (10:30)
[2019-01-04 17:35] LABS: GLUCOMETER DEV NAME(LOC) 5S.2; GLUCOSE,POINT OF CARE 151 MG/DL (70-110)
[2019-01-04 17:36] LABS: GLUCOMETER DEV NAME(LOC) 5S.2; GLUCOSE,POINT OF CARE 193 MG/DL (70-110)
[2019-01-04] MEDS: ATORVASTATIN CALCIUM 20 MG TABLET PO SCH (20:34)
[2019-01-05 00:15] LABS: GLUCOMETER DEV NAME(LOC) 5S.1; GLUCOSE,POINT OF CARE 167 MG/DL (70-110)
[2019-01-05 00:15] LABS: GLUCOMETER DEV NAME(LOC) 5S.2; GLUCOSE,POINT OF CARE 169 MG/DL (70-110)
[2019-01-05] MEDS ORDERED: 0.9% SODIUM CHLORIDE 5 ML NEB SOLUTION NEB ONE ×5 (02:15→23:10)
[2019-01-05] MEDS: ALBUTEROL SULFATE 2.5 MG/0.5 ML NEB SOLUTION NEB SCH ×6 (02:16→23:12)
[2019-01-05 03:58] VITALS: BP 100/58
[2019-01-05 05:31] LABS: BASOPHILS % (AUTO) 0.4 % (0.0-2.0); EOSINOPHILS % (AUTO) 0.4 % (1.0-6.0); HEMATOCRIT 31.7 % (41-53); HEMOGLOBIN 9.8 g/dL (13.5-17.5); LYMPHOCYTES # (AUTO) 0.8 K/uL (1.0-4.8); LYMPHOCYTES % (AUTO) 5.6 % (22.0-44.0); MEAN CORPUSCULAR HEMOGLOBIN 26.5 pg (26.0-34.0); MEAN CORPUSCULAR VOLUME 85 fL (80-100); MONOCYTES # (AUTO) 0.9 K/uL (0.1-1.0); MONOCYTES % (AUTO) 6.3 % (2.0-9.0); NEUTROPHILS # (AUTO) 11.8 K/uL (1.8-7.7); PLATELET COUNT (AUTO) 359 K/uL (150-450); RED BLOOD CELL COUNT(AUTO) 3.71 MIL/uL (4.50-5.90); RED CELL DISTRIBUTION WIDTH 20.6 % (11.5-14.5)
[2019-01-05 05:36] LABS: NEUTROPHILS % (AUTO) 87.3 % (40.0-70.0)
[2019-01-05 05:44] LABS: ALBUMIN 1.9 g/dL (3.4-5.0); BILIRUBIN,TOTAL 1.1 mg/dL (0.1-1.0); CALCIUM, TOTAL 9.4 mg/dL (8.8-10.5); CREATININE 4.94 mg/dL (0.60-1.30); MAGNESIUM 1.9 mg/dL (1.80-2.40); POTASSIUM 4.9 mmol/L (3.5-5.1); TOTAL PROTEIN, SERUM 6.9 g/dL (6.4-8.2)
[2019-01-05 07:50] LABS: GLUCOMETER DEV NAME(LOC) 5S.2; GLUCOSE,POINT OF CARE 144 MG/DL (70-110)
[2019-01-05] MEDS: CALCIUM ACETATE 667 MG CAPSULE PO SCH ×3 (08:00→18:44)
[2019-01-05 08:04] VITALS: BP 114/57
[2019-01-05] MEDS ORDERED: SODIUM CHLORIDE 0.9% 1,000 ML IV ONE ×3 (08:36→13:00)
[2019-01-05] MEDS: RANOLAZINE 500 MG ER TABLET PO SCH ×2 (09:00→21:42)
[2019-01-05] MEDS: METOPROLOL TARTRATE 25 MG TABLET PO SCH ×3 (09:00→21:42)
[2019-01-05] MEDS: DOCUSATE SODIUM 100 MG CAPSULE PO SCH ×2 (09:00→21:47)
[2019-01-05] MEDS ORDERED: SODIUM CHLORIDE 0.9% 10 ML ONE (11:37)
[2019-01-05] MEDS ORDERED: LIDOCAINE/PF 1% 30 ML VIAL ONE (11:38)
[2019-01-05] MEDS ORDERED: BACITRACIN 50,000 UNITS/VIAL ONE (11:38)
[2019-01-05] MEDS ORDERED: BUPIVACAINE HCL/PF 0.5% 30 ML VIAL ONE (11:38)
[2019-01-05] MEDS: VITAMIN B COMP/VIT C/FOLIC ACID CAPSULE PO SCH (11:42)
[2019-01-05] MEDS: PANTOPRAZOLE SODIUM 40 MG DR TABLET PO SCH (11:42)
[2019-01-05] MEDS: CHOLECALCIFEROL (VIT D3) 1,000 UNITS TABLET PO SCH (11:42)
[2019-01-05] MEDS: DULoxetine HCL 30 MG CAPSULE PO SCH (11:43)
[2019-01-05] MEDS ORDERED: FentaNYL CITRATE-PF 100 MCG/2 ML VIAL IVP ONE (12:00)
[2019-01-05 12:03] VITALS: BP 102/63
[2019-01-05] MEDS ORDERED: RINGERS SOLUTION,LACTATED 0 ML IV ONE (12:36)
[2019-01-05] MEDS ORDERED: SODIUM CL IRRIG SOLN BAG 3,000 ML IRRIG ONE (12:57)
[2019-01-05] MEDS ORDERED: THROMBIN, BOVINE 20000 UNITS/VIAL POWDER TP ONE (13:16)
[2019-01-05] MEDS ORDERED: GELATIN SPONGE,ABSORBABLE 50 MM TP ONE ×2 (13:16→13:28)
[2019-01-05] MEDS ORDERED: FentaNYL CITRATE-PF 100 MCG/2 ML VIAL IVP PRN (14:00)
[2019-01-05 14:39] VITALS: BP 107/64
[2019-01-05 16:08] VITALS: BP 104/61
[2019-01-05] MEDS ORDERED: SODIUM CHLORIDE 0.9% 250 ML IV ONE (18:32)
[2019-01-05] MEDS: SOD FERRIC GLUC COMPLX/SUCROSE 125 MG in SODIUM CHLORIDE 0.9% 100 ML IV SCH (18:44)
[2019-01-05 19:27] LABS: GLUCOMETER DEV NAME(LOC) 5S.1; GLUCOSE,POINT OF CARE 109 MG/DL (70-110)
[2019-01-05 19:28] LABS: GLUCOMETER DEV NAME(LOC) 5S.1; GLUCOSE,POINT OF CARE 114 MG/DL (70-110)
[2019-01-05 20:21] VITALS: BP 111/63
[2019-01-05] MEDS: OXYGEN THERAPY IH SCH (21:43)
[2019-01-05] MEDS: ATORVASTATIN CALCIUM 20 MG TABLET PO SCH (21:47)
[2019-01-05] MEDS ORDERED: PROPOFOL 1% 20 ML VIAL IVP ONE (22:13)
[2019-01-05] MEDS ORDERED: LIDOCAINE 2% 5 ML JELLY ONE (22:13)
[2019-01-05] MEDS: OxyCODONE HCL/ACETAMINOPHEN 5-325 MG TABLET PO PRN (22:24)
[2019-01-06] MEDS ORDERED: 0.9% SODIUM CHLORIDE 5 ML NEB SOLUTION NEB ONE ×5 (02:38→22:31)
[2019-01-06] MEDS: ALBUTEROL SULFATE 2.5 MG/0.5 ML NEB SOLUTION NEB SCH ×6 (02:57→23:09)
[2019-01-06 04:00] VITALS: BP 101/53
[2019-01-06 04:55] LABS: GLUCOMETER DEV NAME(LOC) 5S.2; GLUCOSE,POINT OF CARE 115 MG/DL (70-110)
[2019-01-06 06:06] LABS: BASOPHILS % (AUTO) 0.4 % (0.0-2.0); EOSINOPHILS % (AUTO) 0.6 % (1.0-6.0); HEMATOCRIT 27.9 % (41-53); HEMOGLOBIN 8.6 g/dL (13.5-17.5); LYMPHOCYTES # (AUTO) 0.7 K/uL (1.0-4.8); LYMPHOCYTES % (AUTO) 5.6 % (22.0-44.0); MEAN CORPUSCULAR HEMOGLOBIN 26.3 pg (26.0-34.0); MEAN CORPUSCULAR HGB CONC 30.7 G/dL (31.0-37.0); MEAN CORPUSCULAR VOLUME 86 fL (80-100); MONOCYTES # (AUTO) 0.9 K/uL (0.1-1.0); MONOCYTES % (AUTO) 7.1 % (2.0-9.0); NEUTROPHILS # (AUTO) 11.3 K/uL (1.8-7.7); PLATELET COUNT (AUTO) 318 K/uL (150-450); RED BLOOD CELL COUNT(AUTO) 3.25 MIL/uL (4.50-5.90); RED CELL DISTRIBUTION WIDTH 20.4 % (11.5-14.5)
[2019-01-06 06:23] LABS: CALCIUM, TOTAL 8.8 mg/dL (8.8-10.5); CREATININE 3.86 mg/dL (0.60-1.30); POTASSIUM 4.4 mmol/L (3.5-5.1)
[2019-01-06 06:35] LABS: NEUTROPHILS % (AUTO) 86.3 % (40.0-70.0)
[2019-01-06 07:05] LABS: GLUCOMETER DEV NAME(LOC) 5S.1; GLUCOSE,POINT OF CARE 101 MG/DL (70-110)
[2019-01-06 07:12] VITALS: BP 97/53
[2019-01-06] MEDS: VITAMIN B COMP/VIT C/FOLIC ACID CAPSULE PO SCH (08:27)
[2019-01-06] MEDS: PANTOPRAZOLE SODIUM 40 MG DR TABLET PO SCH (08:27)
[2019-01-06] MEDS: CALCIUM ACETATE 667 MG CAPSULE PO SCH ×3 (08:27→18:00)
[2019-01-06] MEDS: CHOLECALCIFEROL (VIT D3) 1,000 UNITS TABLET PO SCH (08:28)
[2019-01-06] MEDS: DULoxetine HCL 30 MG CAPSULE PO SCH (08:33)
[2019-01-06] MEDS: DOCUSATE SODIUM 100 MG CAPSULE PO SCH ×2 (08:33→22:34)
[2019-01-06] MEDS: EPOETIN ALFA 10,000 UNITS/ML VIAL SQ SCH (08:33)
[2019-01-06] MEDS: METOPROLOL TARTRATE 25 MG TABLET PO SCH ×3 (08:33→21:00)
[2019-01-06] MEDS: OXYGEN THERAPY IH SCH ×2 (08:34→22:35)
[2019-01-06] MEDS: RANOLAZINE 500 MG ER TABLET PO SCH ×2 (08:34→22:34)
[2019-01-06 10:22] VITALS: BP 104/59
[2019-01-06 11:15] VITALS: BP 106/57
[2019-01-06 15:54] VITALS: BP 105/65
[2019-01-06] MEDS: SODIUM CHLORIDE 0.45% 1,000 ML IV SCH (17:19)
[2019-01-06] MEDS ORDERED: DEXAMETHASONE SOD PHOS 4 MG/ML VIAL ONE (17:50)
[2019-01-06] MEDS ORDERED: BUPIVACAINE HCL 0.25% 50 ML VIAL ONE (17:50)
[2019-01-06] MEDS ORDERED: ACETAMINOPHEN 1000 MG/ISO-OSM 100 ML IV ONE (17:51)
[2019-01-06] MEDS ORDERED: BUPIVACAINE HCL/DEX-WATER/PF 0.75% 2 ML AMP ONE (17:54)
[2019-01-06] MEDS ORDERED: PIPERACILLIN SODIUM/TAZOBACTAM 0.75 GM in DEXTROSE 5%-WATER 50 ML IV PRN (18:00)
[2019-01-06] MEDS ORDERED: VANCOMYCIN HCL 1 GM/D5% WATER 200 ML IV PRN (18:00)
[2019-01-06] MEDS ORDERED: PIPERACILLIN SODIUM/TAZOBACTAM 2.25 GM in DEXTROSE 5%-WATER 50 ML IV SCH (18:00)
[2019-01-06] MEDS: SOD FERRIC GLUC COMPLX/SUCROSE 125 MG in SODIUM CHLORIDE 0.9% 100 ML IV SCH (18:00)
[2019-01-06] MEDS ORDERED: BUPIVACAINE HCL/PF 0.5% 30 ML VIAL ONE (18:07)
[2019-01-06] MEDS ORDERED: SODIUM CL IRRIG SOLN BAG 3,000 ML IRRIG ONE (18:07)
[2019-01-06] MEDS ORDERED: VANCOMYCIN HCL 1.5 GM in DEXTROSE 5%-WATER 250 ML IV ONE (18:30)
[2019-01-06] MEDS ORDERED: SODIUM CHLORIDE 0.9% 1,000 ML IV ONE (18:51)
[2019-01-06] MEDS ORDERED: PROPOFOL 1000 MG/ISO-OSM 100 ML IV ONE (19:32)
[2019-01-06] MEDS ORDERED: FentaNYL CITRATE-PF 100 MCG/2 ML VIAL IVP PRN (20:30)
[2019-01-06] MEDS ORDERED: HYDROmorphone 2 MG/ML SYRINGE IVP PRN (20:30)
[2019-01-06] MEDS ORDERED: VANCOMYCIN HCL 1 GM/VIAL ONE (20:41)
[2019-01-06 22:16] VITALS: BP 104/61
[2019-01-06 22:30] LABS: GLUCOMETER DEV NAME(LOC) 5S.1; GLUCOSE,POINT OF CARE 100 MG/DL (70-110)
[2019-01-06 22:30] LABS: GLUCOMETER DEV NAME(LOC) 5S.1; GLUCOSE,POINT OF CARE 93 MG/DL (70-110)
[2019-01-06] MEDS: ATORVASTATIN CALCIUM 20 MG TABLET PO SCH (22:34)
[2019-01-06] MEDS: OxyCODONE HCL/ACETAMINOPHEN 5-325 MG TABLET PO PRN (22:35)
[2019-01-06] MEDS: PIPERACILLIN SODIUM/TAZOBACTAM 2.25 GM in DEXTROSE 5%-WATER 50 ML IV SCH (23:07)
[2019-01-07 02:59] LABS: GLUCOMETER DEV NAME(LOC) 5S.2; GLUCOSE,POINT OF CARE 119 MG/DL (70-110)
[2019-01-07] MEDS: ALBUTEROL SULFATE 2.5 MG/0.5 ML NEB SOLUTION NEB SCH ×6 (03:00→23:15)
[2019-01-07 04:12] VITALS: BP 96/54
[2019-01-07] MEDS ORDERED: MIDAZOLAM HCL 2 MG/2 ML VIAL IVP ONE (05:48)
[2019-01-07] MEDS ORDERED: PROPOFOL 1% 20 ML VIAL IVP ONE (05:48)
[2019-01-07] MEDS ORDERED: KETAMINE HCL 50 MG/ML 10 ML VIAL IVP ONE (05:48)
[2019-01-07] MEDS ORDERED: 0.9% SODIUM CHLORIDE 10 ML VIAL IVP ONE (05:48)
[2019-01-07] MEDS ORDERED: LIDOCAINE/PF 2% 5 ML VIAL IM ONE (05:48)
[2019-01-07] MEDS ORDERED: EPHEDrine SULFATE 50 MG/ML VIAL IM ONE (05:48)
[2019-01-07] MEDS ORDERED: ONDANSETRON HCL 4 MG/2 ML VIAL IVP ONE (05:48)
[2019-01-07 07:24] LABS: GLUCOMETER DEV NAME(LOC) 5S.2; GLUCOSE,POINT OF CARE 175 MG/DL (70-110)
[2019-01-07] MEDS ORDERED: 0.9% SODIUM CHLORIDE 5 ML NEB SOLUTION NEB ONE ×4 (07:47→23:07)
[2019-01-07 08:18] VITALS: BP 95/59
[2019-01-07] MEDS: PIPERACILLIN SODIUM/TAZOBACTAM 2.25 GM in DEXTROSE 5%-WATER 50 ML IV SCH ×2 (08:39→18:49)
[2019-01-07] MEDS: VITAMIN B COMP/VIT C/FOLIC ACID CAPSULE PO SCH (08:40)
[2019-01-07] MEDS: CALCIUM ACETATE 667 MG CAPSULE PO SCH ×3 (08:40→18:00)
[2019-01-07] MEDS: RANOLAZINE 500 MG ER TABLET PO SCH ×2 (08:40→20:35)
[2019-01-07] MEDS: OXYGEN THERAPY IH SCH ×2 (08:40→19:31)
[2019-01-07] MEDS: DULoxetine HCL 30 MG CAPSULE PO SCH (08:40)
[2019-01-07] MEDS: DOCUSATE SODIUM 100 MG CAPSULE PO SCH ×2 (08:40→20:35)
[2019-01-07] MEDS: CHOLECALCIFEROL (VIT D3) 1,000 UNITS TABLET PO SCH (08:41)
[2019-01-07] MEDS: METOPROLOL TARTRATE 25 MG TABLET PO SCH ×3 (08:41→20:30)
[2019-01-07] MEDS: PANTOPRAZOLE SODIUM 40 MG DR TABLET PO SCH (08:54)
[2019-01-07 12:11] VITALS: BP 89/52
[2019-01-07] MEDS ORDERED: VANCOMYCIN HCL 1 GM/D5% WATER 200 ML IV ONE (14:00)
[2019-01-07] MEDS: SOD FERRIC GLUC COMPLX/SUCROSE 125 MG in SODIUM CHLORIDE 0.9% 100 ML IV SCH (14:03)
[2019-01-07] MEDS: INSULIN LISPRO 100 UNITS/ML SQ PRN ×2 (14:16→18:50)
[2019-01-07 14:25] LABS: GLUCOMETER DEV NAME(LOC) 5S.1; GLUCOSE,POINT OF CARE 225 MG/DL (70-110)
[2019-01-07] MEDS ORDERED: LACTULOSE 20 GM/30 ML SOLUTION UDCUP PO ONE (15:00)
[2019-01-07 15:01] VITALS: BP 83/51
[2019-01-07 15:32] LABS: HEMATOCRIT 22.7 % (41-53); HEMOGLOBIN 7.3 g/dL (13.5-17.5)
[2019-01-07] MEDS ORDERED: MANNITOL 25%-12.5 GM/50 ML VIAL IVP ONE (17:47)
[2019-01-07] MEDS: ALBUMIN HUMAN 25%-25GM/100ML 100 ML IV SCH (18:01)
[2019-01-07 19:09] VITALS: BP 95/51
[2019-01-07 20:25] VITALS: BP 96/56
[2019-01-07 20:35] LABS: GLUCOMETER DEV NAME(LOC) 5S.2; GLUCOSE,POINT OF CARE 192 MG/DL (70-110)
[2019-01-07] MEDS: ATORVASTATIN CALCIUM 20 MG TABLET PO SCH (20:35)
[2019-01-08] VITALS (17 sets, daily range): BP systolic 95–109; BP diastolic 54–83
[2019-01-08] MEDS: ALBUMIN HUMAN 25%-25GM/100ML 100 ML IV SCH ×5 (00:07→23:12)
[2019-01-08] MEDS: PIPERACILLIN SODIUM/TAZOBACTAM 2.25 GM in DEXTROSE 5%-WATER 50 ML IV SCH ×3 (02:10→17:45)
[2019-01-08] MEDS ORDERED: 0.9% SODIUM CHLORIDE 5 ML NEB SOLUTION NEB ONE ×6 (03:03→23:27)
[2019-01-08] MEDS: ALBUTEROL SULFATE 2.5 MG/0.5 ML NEB SOLUTION NEB SCH ×6 (03:07→23:35)
[2019-01-08 04:54] LABS: GLUCOMETER DEV NAME(LOC) 5S.1; GLUCOSE,POINT OF CARE 181 MG/DL (70-110)
[2019-01-08 05:59] LABS: BASOPHILS % (AUTO) 0.2 % (0.0-2.0); EOSINOPHILS % (AUTO) 0.2 % (1.0-6.0); LYMPHOCYTES # (AUTO) 0.5 K/uL (1.0-4.8); LYMPHOCYTES % (AUTO) 4.1 % (22.0-44.0); MEAN CORPUSCULAR HEMOGLOBIN 26.9 pg (26.0-34.0); MEAN CORPUSCULAR VOLUME 87 fL (80-100); MONOCYTES # (AUTO) 0.7 K/uL (0.1-1.0); MONOCYTES % (AUTO) 6.4 % (2.0-9.0); NEUTROPHILS # (AUTO) 10.4 K/uL (1.8-7.7); PLATELET COUNT (AUTO) 270 K/uL (150-450); RED BLOOD CELL COUNT(AUTO) 2.33 MIL/uL (4.50-5.90); RED CELL DISTRIBUTION WIDTH 20.5 % (11.5-14.5)
[2019-01-08 06:08] LABS: NEUTROPHILS % (AUTO) 89.1 % (40.0-70.0)
[2019-01-08 06:09] LABS: HEMOGLOBIN 6.3 g/dL (13.5-17.5)
[2019-01-08 06:10] LABS: HEMATOCRIT 20.2 % (41-53)
[2019-01-08] MEDS: INSULIN LISPRO 100 UNITS/ML SQ PRN ×3 (06:36→19:04)
[2019-01-08 07:34] LABS: GLUCOMETER DEV NAME(LOC) 5S.2; GLUCOSE,POINT OF CARE 218 MG/DL (70-110)
[2019-01-08] MEDS: OXYGEN THERAPY IH SCH ×2 (07:35→19:32)
[2019-01-08] MEDS: CALCIUM ACETATE 667 MG CAPSULE PO SCH ×3 (08:56→17:45)
[2019-01-08] MEDS: DOCUSATE SODIUM 100 MG CAPSULE PO SCH ×2 (08:57→20:48)
[2019-01-08] MEDS: DULoxetine HCL 30 MG CAPSULE PO SCH (08:57)
[2019-01-08] MEDS: CHOLECALCIFEROL (VIT D3) 1,000 UNITS TABLET PO SCH (08:57)
[2019-01-08] MEDS: VITAMIN B COMP/VIT C/FOLIC ACID CAPSULE PO SCH (08:57)
[2019-01-08] MEDS: PANTOPRAZOLE SODIUM 40 MG DR TABLET PO SCH (08:57)
[2019-01-08] MEDS: RANOLAZINE 500 MG ER TABLET PO SCH ×2 (08:58→20:48)
[2019-01-08] MEDS: METOPROLOL TARTRATE 25 MG TABLET PO SCH ×3 (08:58→20:34)
[2019-01-08] MEDS: SODIUM CHLORIDE 0.45% 1,000 ML IV SCH (09:11)
[2019-01-08] MEDS: EPOETIN ALFA 10,000 UNITS/ML VIAL SQ SCH (09:11)
[2019-01-08] MEDS ORDERED: SODIUM CHLORIDE 0.9% 250 ML IV ONE (09:56)
[2019-01-08] MEDS ORDERED: SODIUM CHLORIDE 0.9% 2,000 ML IV ONE (11:01)
[2019-01-08 14:26] LABS: ABG A-A DIFF O2 501.6 mmHg (10-20.0); ABG CARBOXYHEMOGLOBIN 0.8 % (0.0-1.5); ABG HCO3 23.7 mmol/L (22.0-26.0); ABG METHEMOGLOBIN 0.3 % (0.0-1.5); ABG OXYGEN CONTENT 10.2 mL/dL (15.0-23.0); ABG OXYGEN SATURATION 99.2 % (95.0-98.0); ABG OXYHEMOGLOBIN 98.1 % (94.0-100.0); ABG PCO2 37 mmHg (35-45); ABG PH 7.419 (7.35-7.450); PO2, ARTERIAL BG 174.9 mmHg (79.0-87.0); SOURCE, BLOOD GAS ARTERIAL; TEMPERATURE, FAHRENHEIT, BG 98.2 FAHREN (96.0-98.6)
[2019-01-08 14:27] LABS: ABG TOTAL HEMOGLOBIN 7.1 G/dL (12.0-18.0); SITE, BLOOD GAS RT RADIAL
[2019-01-08 14:28] LABS: O2 DEVICE,BLOOD GAS NRBM (ROOM AIR)
[2019-01-08 18:12] LABS: BASOPHILS % (AUTO) 0.2 % (0.0-2.0); EOSINOPHILS % (AUTO) 0.3 % (1.0-6.0); HEMATOCRIT 23.6 % (41-53); HEMOGLOBIN 7.4 g/dL (13.5-17.5); LYMPHOCYTES # (AUTO) 0.5 K/uL (1.0-4.8); LYMPHOCYTES % (AUTO) 4.4 % (22.0-44.0); MEAN CORPUSCULAR HEMOGLOBIN 27.6 pg (26.0-34.0); MEAN CORPUSCULAR HGB CONC 31.4 G/dL (31.0-37.0); MEAN CORPUSCULAR VOLUME 88 fL (80-100); MONOCYTES # (AUTO) 0.8 K/uL (0.1-1.0); MONOCYTES % (AUTO) 6.2 % (2.0-9.0); PLATELET COUNT (AUTO) 263 K/uL (150-450); RED BLOOD CELL COUNT(AUTO) 2.68 MIL/uL (4.50-5.90); RED CELL DISTRIBUTION WIDTH 18.7 % (11.5-14.5)
[2019-01-08 18:16] LABS: NEUTROPHILS % (AUTO) 88.9 % (40.0-70.0)
[2019-01-08] MEDS: SOD FERRIC GLUC COMPLX/SUCROSE 125 MG in SODIUM CHLORIDE 0.9% 100 ML IV SCH (18:59)
[2019-01-08] MEDS: ATORVASTATIN CALCIUM 20 MG TABLET PO SCH (20:48)
[2019-01-09] MEDS: PIPERACILLIN SODIUM/TAZOBACTAM 2.25 GM in DEXTROSE 5%-WATER 50 ML IV SCH ×3 (01:07→20:39)
[2019-01-09 01:19] LABS: GLUCOMETER DEV NAME(LOC) 5S.1; GLUCOSE,POINT OF CARE 196 MG/DL (70-110)
[2019-01-09 01:19] LABS: GLUCOMETER DEV NAME(LOC) 5S.1; GLUCOSE,POINT OF CARE 200 MG/DL (70-110)
[2019-01-09] MEDS ORDERED: 0.9% SODIUM CHLORIDE 5 ML NEB SOLUTION NEB ONE ×6 (02:40→23:07)
[2019-01-09] MEDS: ALBUTEROL SULFATE 2.5 MG/0.5 ML NEB SOLUTION NEB SCH ×6 (03:05→23:10)
[2019-01-09] MEDS: ALBUMIN HUMAN 25%-25GM/100ML 100 ML IV SCH ×3 (04:15→20:39)
[2019-01-09 05:43] VITALS: BP 113/55
[2019-01-09 05:50] LABS: GLUCOMETER DEV NAME(LOC) 5S.2; GLUCOSE,POINT OF CARE 192 MG/DL (70-110)
[2019-01-09 06:19] LABS: BASOPHILS % (AUTO) 0.3 % (0.0-2.0); EOSINOPHILS % (AUTO) 0.9 % (1.0-6.0); HEMATOCRIT 23.8 % (41-53); HEMOGLOBIN 7.4 g/dL (13.5-17.5); LYMPHOCYTES # (AUTO) 0.6 K/uL (1.0-4.8); LYMPHOCYTES % (AUTO) 5.1 % (22.0-44.0); MEAN CORPUSCULAR HEMOGLOBIN 27.5 pg (26.0-34.0); MEAN CORPUSCULAR HGB CONC 31.2 G/dL (31.0-37.0); MEAN CORPUSCULAR VOLUME 88 fL (80-100); MONOCYTES # (AUTO) 0.7 K/uL (0.1-1.0); MONOCYTES % (AUTO) 6.4 % (2.0-9.0); NEUTROPHILS # (AUTO) 9.9 K/uL (1.8-7.7); PLATELET COUNT (AUTO) 243 K/uL (150-450); RED CELL DISTRIBUTION WIDTH 19.1 % (11.5-14.5)
[2019-01-09 06:25] LABS: NEUTROPHILS % (AUTO) 87.3 % (40.0-70.0)
[2019-01-09 07:29] LABS: GLUCOMETER DEV NAME(LOC) 5S.2; GLUCOSE,POINT OF CARE 142 MG/DL (70-110)
[2019-01-09 08:14] VITALS: BP 101/56
[2019-01-09] MEDS: CALCIUM ACETATE 667 MG CAPSULE PO SCH ×3 (08:46→17:56)
[2019-01-09] MEDS: OXYGEN THERAPY IH SCH ×2 (08:46→20:00)
[2019-01-09] MEDS: METOPROLOL TARTRATE 25 MG TABLET PO SCH ×3 (09:00→20:50)
[2019-01-09] MEDS ORDERED: SODIUM CHLORIDE 0.9% 1,000 ML IV ONE (09:13)
[2019-01-09] MEDS: CHOLECALCIFEROL (VIT D3) 1,000 UNITS TABLET PO SCH (09:34)
[2019-01-09] MEDS: PANTOPRAZOLE SODIUM 40 MG DR TABLET PO SCH (09:34)
[2019-01-09] MEDS: VITAMIN B COMP/VIT C/FOLIC ACID CAPSULE PO SCH (09:35)
[2019-01-09] MEDS: DULoxetine HCL 30 MG CAPSULE PO SCH (09:35)
[2019-01-09] MEDS: DOCUSATE SODIUM 100 MG CAPSULE PO SCH ×2 (09:36→20:40)
[2019-01-09] MEDS: RANOLAZINE 500 MG ER TABLET PO SCH ×2 (09:37→20:40)
[2019-01-09 11:22] VITALS: BP 108/73
[2019-01-09 11:41] LABS: BASOPHILS % (AUTO) 0.4 % (0.0-2.0); EOSINOPHILS % (AUTO) 0.6 % (1.0-6.0); HEMATOCRIT 23.3 % (41-53); HEMOGLOBIN 7.3 g/dL (13.5-17.5); LYMPHOCYTES # (AUTO) 0.4 K/uL (1.0-4.8); LYMPHOCYTES % (AUTO) 3.2 % (22.0-44.0); MEAN CORPUSCULAR HEMOGLOBIN 27.5 pg (26.0-34.0); MEAN CORPUSCULAR HGB CONC 31.5 G/dL (31.0-37.0); MEAN CORPUSCULAR VOLUME 87 fL (80-100); MONOCYTES # (AUTO) 0.7 K/uL (0.1-1.0); NEUTROPHILS # (AUTO) 11.9 K/uL (1.8-7.7); PLATELET COUNT (AUTO) 253 K/uL (150-450); RED BLOOD CELL COUNT(AUTO) 2.67 MIL/uL (4.50-5.90); RED CELL DISTRIBUTION WIDTH 19.1 % (11.5-14.5)
[2019-01-09 11:42] LABS: NEUTROPHILS % (AUTO) 90.8 % (40.0-70.0)
[2019-01-09 11:49] LABS: CALCIUM, TOTAL 8.7 mg/dL (8.8-10.5); CREATININE 2.23 mg/dL (0.60-1.30); POTASSIUM 4.1 mmol/L (3.5-5.1)
[2019-01-09 11:55] LABS: ALBUMIN 3.3 g/dL (3.4-5.0); BILIRUBIN,TOTAL 1.1 mg/dL (0.1-1.0); TOTAL PROTEIN, SERUM 6.6 g/dL (6.4-8.2)
[2019-01-09 12:05] LABS: GLUCOMETER DEV NAME(LOC) 5S.1; GLUCOSE,POINT OF CARE 155 MG/DL (70-110)
[2019-01-09] MEDS: OxyCODONE HCL/ACETAMINOPHEN 5-325 MG TABLET PO PRN (12:07)
[2019-01-09] MEDS ORDERED: VANCOMYCIN HCL 1 GM/D5% WATER 200 ML IV ONE (15:00)
[2019-01-09] MEDS: SODIUM CHLORIDE 0.45% 1,000 ML IV SCH (16:02)
[2019-01-09 16:29] VITALS: BP 106/68
[2019-01-09] MEDS: INSULIN LISPRO 100 UNITS/ML SQ PRN ×2 (17:56→21:16)
[2019-01-09] MEDS: SOD FERRIC GLUC COMPLX/SUCROSE 125 MG in SODIUM CHLORIDE 0.9% 100 ML IV SCH (17:59)
[2019-01-09 19:29] VITALS: BP 98/59
[2019-01-09 20:39] LABS: GLUCOMETER DEV NAME(LOC) 5S.1; GLUCOSE,POINT OF CARE 185 MG/DL (70-110)
[2019-01-09] MEDS: ATORVASTATIN CALCIUM 20 MG TABLET PO SCH (20:40)
[2019-01-09 22:44] LABS: GLUCOMETER DEV NAME(LOC) 5S.1; GLUCOSE,POINT OF CARE 139 MG/DL (70-110)
[2019-01-09 23:43] VITALS: BP 112/69
[2019-01-10] MEDS: OxyCODONE HCL/ACETAMINOPHEN 5-325 MG TABLET PO PRN ×3 (01:56→20:09)
[2019-01-10] MEDS ORDERED: 0.9% SODIUM CHLORIDE 5 ML NEB SOLUTION NEB ONE ×5 (02:11→19:36)
[2019-01-10] MEDS: ALBUTEROL SULFATE 2.5 MG/0.5 ML NEB SOLUTION NEB SCH ×6 (02:25→23:00)
[2019-01-10] MEDS: ALBUMIN HUMAN 25%-25GM/100ML 100 ML IV SCH ×4 (02:47→20:09)
[2019-01-10 05:00] VITALS: BP 122/59
[2019-01-10] MEDS: PIPERACILLIN SODIUM/TAZOBACTAM 2.25 GM in DEXTROSE 5%-WATER 50 ML IV SCH ×2 (05:37→12:26)
[2019-01-10 06:02] LABS: BASOPHILS % (AUTO) 0.4 % (0.0-2.0); EOSINOPHILS % (AUTO) 0.9 % (1.0-6.0); HEMATOCRIT 23.1 % (41-53); HEMOGLOBIN 7.2 g/dL (13.5-17.5); LYMPHOCYTES # (AUTO) 0.8 K/uL (1.0-4.8); LYMPHOCYTES % (AUTO) 6.9 % (22.0-44.0); MEAN CORPUSCULAR HEMOGLOBIN 27.7 pg (26.0-34.0); MEAN CORPUSCULAR HGB CONC 31.3 G/dL (31.0-37.0); MEAN CORPUSCULAR VOLUME 89 fL (80-100); NEUTROPHILS # (AUTO) 10.1 K/uL (1.8-7.7); NEUTROPHILS % (AUTO) 83.8 % (40.0-70.0); PLATELET COUNT (AUTO) 228 K/uL (150-450); RED BLOOD CELL COUNT(AUTO) 2.62 MIL/uL (4.50-5.90); RED CELL DISTRIBUTION WIDTH 19.4 % (11.5-14.5)
[2019-01-10] MEDS: OXYGEN THERAPY IH SCH ×2 (07:18→20:10)
[2019-01-10 07:41] VITALS: BP 108/65
[2019-01-10] MEDS: VITAMIN B COMP/VIT C/FOLIC ACID CAPSULE PO SCH (08:49)
[2019-01-10] MEDS: DULoxetine HCL 30 MG CAPSULE PO SCH (08:49)
[2019-01-10] MEDS: DOCUSATE SODIUM 100 MG CAPSULE PO SCH ×2 (08:49→20:08)
[2019-01-10] MEDS: PANTOPRAZOLE SODIUM 40 MG DR TABLET PO SCH (08:49)
[2019-01-10] MEDS: RANOLAZINE 500 MG ER TABLET PO SCH ×2 (08:49→20:08)
[2019-01-10] MEDS: CALCIUM ACETATE 667 MG CAPSULE PO SCH ×3 (08:49→18:13)
[2019-01-10] MEDS: CHOLECALCIFEROL (VIT D3) 1,000 UNITS TABLET PO SCH (08:49)
[2019-01-10] MEDS: METOPROLOL TARTRATE 25 MG TABLET PO SCH ×3 (08:56→20:40)
[2019-01-10 12:00] VITALS: BP 100/67
[2019-01-10 15:55] VITALS: BP 107/53
[2019-01-10 17:49] LABS: GLUCOMETER DEV NAME(LOC) 5S.1; GLUCOSE,POINT OF CARE 111 MG/DL (70-110)
[2019-01-10 17:50] LABS: GLUCOMETER DEV NAME(LOC) 5S.1; GLUCOSE,POINT OF CARE 137 MG/DL (70-110)
[2019-01-10] MEDS: INSULIN LISPRO 100 UNITS/ML SQ PRN ×2 (18:14→21:30)
[2019-01-10] MEDS: SOD FERRIC GLUC COMPLX/SUCROSE 125 MG in SODIUM CHLORIDE 0.9% 100 ML IV SCH (18:21)
[2019-01-10 18:29] LABS: GLUCOMETER DEV NAME(LOC) 5S.2; GLUCOSE,POINT OF CARE 161 MG/DL (70-110)
[2019-01-10 19:33] VITALS: BP 101/60
[2019-01-10] MEDS: ATORVASTATIN CALCIUM 20 MG TABLET PO SCH (20:08)
[2019-01-10 23:39] VITALS: BP 110/63
[2019-01-11 00:39] LABS: GLUCOMETER DEV NAME(LOC) 5S.1; GLUCOSE,POINT OF CARE 137 MG/DL (70-110)
[2019-01-11] MEDS ORDERED: SODIUM CHLORIDE 0.9% 250 ML IV ONE (01:29)
[2019-01-11] MEDS: ALBUMIN HUMAN 25%-25GM/100ML 100 ML IV SCH ×4 (01:34→20:43)
[2019-01-11] MEDS: ALBUTEROL SULFATE 2.5 MG/0.5 ML NEB SOLUTION NEB SCH ×6 (03:00→22:41)
[2019-01-11 05:01] VITALS: BP 104/58
[2019-01-11 06:09] LABS: INR 1.2 (0.9-1.1); PROTHROMBIN TIME 12.5 SEC (9.4-11.6)
[2019-01-11] MEDS: INSULIN LISPRO 100 UNITS/ML SQ PRN ×3 (06:13→21:39)
[2019-01-11 07:00] LABS: GLUCOMETER DEV NAME(LOC) 5S.1; GLUCOSE,POINT OF CARE 130 MG/DL (70-110)
[2019-01-11 07:11] VITALS: BP 110/63
[2019-01-11] MEDS: OXYGEN THERAPY IH SCH ×2 (08:00→19:01)
[2019-01-11] MEDS ORDERED: 0.9% SODIUM CHLORIDE 5 ML NEB SOLUTION NEB ONE ×5 (08:05→22:40)
[2019-01-11] MEDS: METOPROLOL TARTRATE 25 MG TABLET PO SCH ×3 (09:00→21:00)
[2019-01-11] MEDS: CHOLECALCIFEROL (VIT D3) 1,000 UNITS TABLET PO SCH (10:36)
[2019-01-11] MEDS: DULoxetine HCL 30 MG CAPSULE PO SCH (10:36)
[2019-01-11] MEDS: RANOLAZINE 500 MG ER TABLET PO SCH ×2 (10:37→20:43)
[2019-01-11] MEDS: VITAMIN B COMP/VIT C/FOLIC ACID CAPSULE PO SCH (10:37)
[2019-01-11] MEDS: CALCIUM ACETATE 667 MG CAPSULE PO SCH ×3 (10:37→18:03)
[2019-01-11] MEDS: DOCUSATE SODIUM 100 MG CAPSULE PO SCH ×2 (10:37→20:43)
[2019-01-11] MEDS: PANTOPRAZOLE SODIUM 40 MG DR TABLET PO SCH (10:38)
[2019-01-11] MEDS: EPOETIN ALFA 10,000 UNITS/ML VIAL SQ SCH (10:41)
[2019-01-11] MEDS: OxyCODONE HCL/ACETAMINOPHEN 5-325 MG TABLET PO PRN ×2 (10:45→14:42)
[2019-01-11 11:31] VITALS: BP 102/60
[2019-01-11 12:29] LABS: GLUCOMETER DEV NAME(LOC) 5S.1; GLUCOSE,POINT OF CARE 130 MG/DL (70-110)
[2019-01-11 15:03] LABS: HEMOGLOBIN 7.4 g/dL (13.5-17.5); MEAN CORPUSCULAR HEMOGLOBIN 28.1 pg (26.0-34.0); MEAN CORPUSCULAR VOLUME 91 fL (80-100); PLATELET COUNT (AUTO) 231 K/uL (150-450); RED BLOOD CELL COUNT(AUTO) 2.64 MIL/uL (4.50-5.90)
[2019-01-11 15:16] LABS: CALCIUM, TOTAL 9.1 mg/dL (8.8-10.5); CREATININE 3.83 mg/dL (0.60-1.30); POTASSIUM 4.8 mmol/L (3.5-5.1)
[2019-01-11 15:22] LABS: ALBUMIN 3.9 g/dL (3.4-5.0); BILIRUBIN,TOTAL 1.7 mg/dL (0.1-1.0); TOTAL PROTEIN, SERUM 6.9 g/dL (6.4-8.2)
[2019-01-11 15:43] LABS: BAND NEUTROPHILS % (MANUAL) 0 % (0-5)
[2019-01-11 15:48] LABS: LYMPHOCYTES % (MANUAL) 12 % (22-44); MONOCYTES % (MANUAL) 5 % (2-9); MYELOCYTES % 1 % (0-0); SEGMENTED NEUTROPHILS % 82 % (40-70)
[2019-01-11 16:24] VITALS: BP 109/68
[2019-01-11] MEDS: SOD FERRIC GLUC COMPLX/SUCROSE 125 MG in SODIUM CHLORIDE 0.9% 100 ML IV SCH (18:03)
[2019-01-11 19:24] VITALS: BP 108/60
[2019-01-11] MEDS: ATORVASTATIN CALCIUM 20 MG TABLET PO SCH (20:43)
[2019-01-12 00:26] VITALS: BP 117/71
[2019-01-12] MEDS ORDERED: 0.9% SODIUM CHLORIDE 5 ML NEB SOLUTION NEB ONE ×3 (02:16→18:57)
[2019-01-12] MEDS: ALBUTEROL SULFATE 2.5 MG/0.5 ML NEB SOLUTION NEB SCH ×5 (02:31→19:05)
[2019-01-12] MEDS: ALBUMIN HUMAN 25%-25GM/100ML 100 ML IV SCH ×3 (02:49→14:44)
[2019-01-12] MEDS: OxyCODONE HCL/ACETAMINOPHEN 5-325 MG TABLET PO PRN ×3 (03:18→12:54)
[2019-01-12 04:52] VITALS: BP 112/72
[2019-01-12 05:40] LABS: GLUCOMETER DEV NAME(LOC) 5S.1; GLUCOSE,POINT OF CARE 137 MG/DL (70-110)
[2019-01-12 05:40] LABS: GLUCOMETER DEV NAME(LOC) 5S.1; GLUCOSE,POINT OF CARE 142 MG/DL (70-110)
[2019-01-12 05:44] LABS: HEMATOCRIT 23.7 % (41-53); HEMOGLOBIN 7.5 g/dL (13.5-17.5); MEAN CORPUSCULAR HEMOGLOBIN 28.7 pg (26.0-34.0); MEAN CORPUSCULAR HGB CONC 31.7 G/dL (31.0-37.0); MEAN CORPUSCULAR VOLUME 90 fL (80-100); PLATELET COUNT (AUTO) 240 K/uL (150-450); RED BLOOD CELL COUNT(AUTO) 2.62 MIL/uL (4.50-5.90); RED CELL DISTRIBUTION WIDTH 20.1 % (11.5-14.5)
[2019-01-12 06:10] LABS: ALBUMIN 4.1 g/dL (3.4-5.0); BILIRUBIN,TOTAL 1.7 mg/dL (0.1-1.0); CALCIUM, TOTAL 9.4 mg/dL (8.8-10.5); CREATININE 4.12 mg/dL (0.60-1.30); POTASSIUM 4.5 mmol/L (3.5-5.1)
[2019-01-12] MEDS: INSULIN LISPRO 100 UNITS/ML SQ PRN (06:19)
[2019-01-12] MEDS ORDERED: SODIUM CHLORIDE 0.9% 2,000 ML IV ONE (07:35)
[2019-01-12 07:46] VITALS: BP 102/70
[2019-01-12 08:13] LABS: BAND NEUTROPHILS % (MANUAL) 2 % (0-5); BASOPHILS % (MANUAL) 1 % (0-2); EOSINOPHILS % (MANUAL) 1 % (1-6); LYMPHOCYTES % (MANUAL) 12 % (22-44); METAMYELOCYTES % 5 % (0-0); MONOCYTES % (MANUAL) 7 % (2-9); MYELOCYTES % 1 % (0-0); SEGMENTED NEUTROPHILS % 71 % (40-70)
[2019-01-12] MEDS: PANTOPRAZOLE SODIUM 40 MG DR TABLET PO SCH (08:20)
[2019-01-12] MEDS: OXYGEN THERAPY IH SCH ×2 (08:21→19:06)
[2019-01-12] MEDS: DOCUSATE SODIUM 100 MG CAPSULE PO SCH (08:21)
[2019-01-12] MEDS: RANOLAZINE 500 MG ER TABLET PO SCH (08:21)
[2019-01-12] MEDS: CALCIUM ACETATE 667 MG CAPSULE PO SCH ×3 (08:30→18:27)
[2019-01-12] MEDS: METOPROLOL TARTRATE 25 MG TABLET PO SCH ×2 (08:33→16:07)
[2019-01-12] MEDS ORDERED: GABAPENTIN 100 MG CAPSULE PO SCH (09:00)
[2019-01-12] MEDS ORDERED: MANNITOL 25%-12.5 GM/50 ML VIAL IVP PRN (09:15)
[2019-01-12 11:18] VITALS: BP 113/58
[2019-01-12] MEDS: VITAMIN B COMP/VIT C/FOLIC ACID CAPSULE PO SCH (12:09)
[2019-01-12] MEDS: DULoxetine HCL 30 MG CAPSULE PO SCH (12:10)
[2019-01-12] MEDS: CHOLECALCIFEROL (VIT D3) 1,000 UNITS TABLET PO SCH (12:13)
[2019-01-12 15:38] VITALS: BP 134/78
[2019-01-12 17:05] LABS: GLUCOMETER DEV NAME(LOC) 5S.1; GLUCOSE,POINT OF CARE 125 MG/DL (70-110)
[2019-01-12 17:05] LABS: GLUCOMETER DEV NAME(LOC) 5S.1; GLUCOSE,POINT OF CARE 100 MG/DL (70-110)
[2019-01-12] MEDS: SOD FERRIC GLUC COMPLX/SUCROSE 125 MG in SODIUM CHLORIDE 0.9% 100 ML IV SCH (18:00)
[2019-01-12] MEDS ORDERED: A20IH1 IH (18:49)
[2019-01-12] MEDS ORDERED: DSS100 PO (18:51)
[2019-01-12] MEDS ORDERED: METO25 PO (18:52)
[2019-01-12] MEDS ORDERED: EPOE10I IVP (18:52)
[2019-01-12] MEDS ORDERED: GABA-529 PO (18:52)
[2019-01-12] MEDS ORDERED: PANT40TA25 PO (18:53)
[2019-01-13 05:10] LABS: GLUCOMETER DEV NAME(LOC) 5S.1; GLUCOSE,POINT OF CARE 125 MG/DL (70-110)
== END 2019-01-12 20:05 | DRG 239 ==
LOC: EMS 08:50 → 5S 16:10
PROVIDERS: ADMIT Internal Medicine; ATTEND Internal Medicine
PROC: 5A1D70Z Performance of Urinary Filtration, Intermittent, Less than 6 Hours Per Day (ICD-10-PCS; 2018-12-29)
PROC: 5A1D70Z Performance of Urinary Filtration, Intermittent, Less than 6 Hours Per Day (ICD-10-PCS; 2018-12-31)
PROC: 5A1D70Z Performance of Urinary Filtration, Intermittent, Less than 6 Hours Per Day (ICD-10-PCS; 2019-01-02)
PROC: 5A1D70Z Performance of Urinary Filtration, Intermittent, Less than 6 Hours Per Day (ICD-10-PCS; 2019-01-05)
PROC: 0Y6N0ZB Detachment at Left Foot, Partial 2nd Ray, Open Approach (ICD-10-PCS; 2019-01-06)
PROC: 0Y6N0ZC Detachment at Left Foot, Partial 3rd Ray, Open Approach (ICD-10-PCS; 2019-01-06)
PROC: 0Y6N0ZD Detachment at Left Foot, Partial 4th Ray, Open Approach (ICD-10-PCS; 2019-01-06)
PROC: 0Y6N0ZF Detachment at Left Foot, Partial 5th Ray, Open Approach (ICD-10-PCS; 2019-01-06)
PROC: 0JBR0ZZ Excision of Left Foot Subcutaneous Tissue and Fascia, Open Approach (ICD-10-PCS; 2019-01-06)
PROC: 0Y6N0Z9 Detachment at Left Foot, Partial 1st Ray, Open Approach (ICD-10-PCS; principal; 2019-01-06 17:00)
PROC: 0Y6J0Z1 Detachment at Left Lower Leg, High, Open Approach (ICD-10-PCS; 2019-01-07)
PROC: 5A1D70Z Performance of Urinary Filtration, Intermittent, Less than 6 Hours Per Day (ICD-10-PCS; 2019-01-07)
PROC: 30233N1 Transfusion of Nonautologous Red Blood Cells into Peripheral Vein, Percutaneous Approach (ICD-10-PCS; 2019-01-08)
PROC: 5A1D70Z Performance of Urinary Filtration, Intermittent, Less than 6 Hours Per Day (ICD-10-PCS; 2019-01-09)
PROC: 5A1D70Z Performance of Urinary Filtration, Intermittent, Less than 6 Hours Per Day (ICD-10-PCS; 2019-01-12)
DX: E11.52 Type 2 diabetes mellitus with diabetic peripheral angiopathy with gangrene (principal); N18.6 End stage renal disease; I50.41 Acute combined systolic (congestive) and diastolic (congestive) heart failure; J96.90 Respiratory failure, unspecified, unspecified whether with hypoxia or hypercapnia; I13.2 Hypertensive heart and chronic kidney disease with heart failure and with stage 5 chronic kidney disease, or end stage renal disease; I42.9 Cardiomyopathy, unspecified; I48.92 Unspecified atrial flutter; L02.612 Cutaneous abscess of left foot; E87.1 Hypo-osmolality and hyponatremia; M86.8X7 Other osteomyelitis, ankle and foot; E78.00 Pure hypercholesterolemia, unspecified; E87.79 Other fluid overload; I25.119 Atherosclerotic heart disease of native coronary artery with unspecified angina pectoris; E11.22 Type 2 diabetes mellitus with diabetic chronic kidney disease; F17.210 Nicotine dependence, cigarettes, uncomplicated; G47.33 Obstructive sleep apnea (adult) (pediatric); I48.0 Paroxysmal atrial fibrillation; I25.5 Ischemic cardiomyopathy; E11.69 Type 2 diabetes mellitus with other specified complication; E78.5 Hyperlipidemia, unspecified; D64.9 Anemia, unspecified; L97.529 Non-pressure chronic ulcer of other part of left foot with unspecified severity; E11.621 Type 2 diabetes mellitus with foot ulcer; Z95.5 Presence of coronary angioplasty implant and graft; Z99.2 Dependence on renal dialysis; Z22.322 Carrier or suspected carrier of Methicillin resistant Staphylococcus aureus; Z79.82 Long term (current) use of aspirin; Z79.899 Other long term (current) drug therapy
CPT/HCPCS: 36600; 71250; 82270; 82271; 82805; 83540; 83550; 83735; 84100; 85014; 85018; 86850; 86900; 86901; 86920; 87070; 87081; 87205; 87340; 88307; 88311; 93005; 93306; 93925; 94640; 94761; 96374; 97110; 97163; 97167; 97530; 97535; G0378; J0131; J0690; J0885; J1100; J1644; J1940; J2150; J2250; J2405; J2543; J2704; J2916; J3010; J3370; J3490; J7030; J7050; J7060; J7120; P9016; P9046

== ENCOUNTER 2019-01-15 20:04 | Inpatient (IN) | payer MEDICARE, OTHER ==
[~2019-01-15] VITALS: Ht 170.2 cm; Wt 95.0 kg
[~2019-01-15 20:04] MED LIST changes: +A20IH1 IH; -AMOX1TAB15 PO; +DSS100 PO; +EPOE10I IVP; +GABA-529 PO; +METO25 PO; +PANT40TA25 PO
[2019-01-15 21:49] LABS: GLUCOSE,POINT OF CARE 221 MG/DL (70-110)
[2019-01-15 22:01] LABS: BASOPHILS % (AUTO) 0.7 % (0.0-2.0); EOSINOPHILS % (AUTO) 0.8 % (1.0-6.0); HEMATOCRIT 28.7 % (41-53); HEMOGLOBIN 9.1 g/dL (13.5-17.5); LYMPHOCYTES # (AUTO) 1.1 K/uL (1.0-4.8); LYMPHOCYTES % (AUTO) 11.6 % (22.0-44.0); MEAN CORPUSCULAR HGB CONC 31.6 G/dL (31.0-37.0); MEAN CORPUSCULAR VOLUME 92 fL (80-100); MONOCYTES # (AUTO) 1.1 K/uL (0.1-1.0); MONOCYTES % (AUTO) 10.8 % (2.0-9.0); NEUTROPHILS # (AUTO) 7.5 K/uL (1.8-7.7); NEUTROPHILS % (AUTO) 76.1 % (40.0-70.0); PLATELET COUNT (AUTO) 327 K/uL (150-450); RED BLOOD CELL COUNT(AUTO) 3.12 MIL/uL (4.50-5.90); RED CELL DISTRIBUTION WIDTH 24.4 % (11.5-14.5)
[2019-01-15 22:12] LABS: ANION GAP 12 mmol/L (8-16); CALCIUM, TOTAL 9.6 mg/dL (8.8-10.5); CARBON DIOXIDE 28 mmol/L (22-29); CHLORIDE 98 mmol/L (98-107); CREATININE 3.88 mg/dL (0.60-1.30); GLOMERULAR FILTR. RATE CALC 16 mL/min (>60); GLUCOSE,RANDOM 231 mg/dL (70-110); SODIUM SERUM 138 mmol/L (136-145); UREA NITROGEN, BLOOD 37 mg/dL (7-18)
[2019-01-15 22:13] LABS: TROPONIN I 0.04 ng/mL (0.00-0.05)
[2019-01-15 22:16] LABS: ALANINE AMINOTRANSFERASE 9 U/L (12-78); ALBUMIN 3.2 g/dL (3.4-5.0); ALKALINE PHOSPHATASE 195 U/L (46-116); ASPARTATE AMINOTRANSFERASE 16 U/L (15-37); LIPASE 52 U/L (73-393); TOTAL PROTEIN, SERUM 7.3 g/dL (6.4-8.2)
[2019-01-15] MEDS ORDERED: ACETAMINOPHEN 325 MG TABLET PO PRN ×2 (22:30→23:15)
[2019-01-15] MEDS ORDERED: BISACODYL 10 MG RECTAL RECTAL SUPPOSITORY PR PRN (22:30)
[2019-01-15 22:35] LABS: B-TYPE NATRIURETIC PEPTIDE > 5000 pg/mL (0-100)
[2019-01-15] MEDS ORDERED: SODIUM CHLORIDE 0.9% 500 ML IV ONE (22:45)
[2019-01-15] MEDS ORDERED: DEXTROSE 50%-WATER 25 GM/50 ML SYRINGE IVP PRN (22:45)
[2019-01-15 23:06] LABS: APPEARANCE,URINE TURBID (CLEAR); GLUCOSE, URINE (UA) NEGATIVE (NEGATIVE); KETONES,URINE TRACE mg/dL (NEGATIVE); LEUKOCYTE ESTERASE ,URINE LARGE (NEGATIVE); NITRATE,URINE POSITIVE (NEGATIVE); OCCULT BLOOD,URINE LARGE (NEGATIVE); PROTEIN,URINE SEE CONFIRM (NEGATIVE)
[2019-01-15 23:09] LABS: BILIRUBIN,URINE PRELIM. POSITIVE (NEGATIVE)
[2019-01-15] MEDS ORDERED: 0.9% SODIUM CHLORIDE 10 ML SYRINGE IVP PRN (23:15)
[2019-01-15] MEDS ORDERED: ONDANSETRON HCL 4 MG/2 ML VIAL IVP PRN (23:15)
[2019-01-15 23:17] LABS: SULFOSALICYLIC ACID,URINE 4+ (Negative); WBC,URINE >100 /HPF (0-5)
[2019-01-15 23:18] LABS: BACTERIA,URINE Many /HPF (None Seen)
[2019-01-15 23:20] LABS: SQUAMOUS EPITHELIAL CELL,UR Few /LPF (None Seen)
[2019-01-16 00:15] VITALS: BP 107/64
[2019-01-16 03:57] VITALS: BP 116/63
[2019-01-16 06:10] LABS: GLUCOMETER DEV NAME(LOC) 5N.1; GLUCOSE,POINT OF CARE 187 MG/DL (70-110)
[2019-01-16 07:38] VITALS: BP 108/72
[2019-01-16] MEDS ORDERED: HEPARIN SODIUM,PORCINE 5,000 UNITS/ML VIAL SQ SCH (09:00)
[2019-01-16] MEDS ORDERED: 0.9% SODIUM CHLORIDE 5 ML NEB SOLUTION NEB ONE ×3 (09:17→19:14)
[2019-01-16] MEDS: ALBUTEROL SULFATE 2.5 MG/0.5 ML NEB SOLUTION NEB PRN ×3 (09:25→19:21)
[2019-01-16] MEDS: FAMOTIDINE 20 MG TABLET PO SCH (10:13)
[2019-01-16] MEDS: ASPIRIN 81 MG CHEWABLE TABLET PO SCH (10:13)
[2019-01-16] MEDS: APIXABAN 2.5 MG TABLET PO SCH ×2 (10:13→20:18)
[2019-01-16] MEDS: DOCUSATE SODIUM 100 MG CAPSULE PO SCH ×2 (10:13→20:18)
[2019-01-16] MEDS ORDERED: SODIUM CHLORIDE 0.9% 100 ML ONE (10:16)
[2019-01-16] MEDS: OxyCODONE HCL/ACETAMINOPHEN 5-325 MG TABLET PO PRN ×2 (10:17→17:23)
[2019-01-16 11:14] VITALS: BP 102/66
[2019-01-16] MEDS: VITAMIN B COMP/VIT C/FOLIC ACID CAPSULE PO SCH (11:50)
[2019-01-16] MEDS: CefTRIAXone 1 GM/DEXTROSE 50 ML IV SCH (11:50)
[2019-01-16] MEDS: INSULIN LISPRO 100 UNITS/ML SQ PRN ×3 (11:53→20:20)
[2019-01-16] MEDS ORDERED: EPOETIN ALFA 10,000 UNITS/ML VIAL SQ SCH (12:00)
[2019-01-16 15:10] LABS: GLUCOMETER DEV NAME(LOC) 5N.1; GLUCOSE,POINT OF CARE 222 MG/DL (70-110)
[2019-01-16 16:59] LABS: GLUCOMETER DEV NAME(LOC) 5N.1; GLUCOSE,POINT OF CARE 186 MG/DL (70-110)
[2019-01-16 19:56] VITALS: BP 105/61
[2019-01-16] MEDS ORDERED: ATORVASTATIN CALCIUM 20 MG TABLET PO SCH (21:00)
[2019-01-16 23:20] VITALS: BP 103/71
[2019-01-17] VITALS (7 sets, daily range): BP systolic 96–125; BP diastolic 67–76
[2019-01-17] MEDS ORDERED: 0.9% SODIUM CHLORIDE 5 ML NEB SOLUTION NEB ONE ×2 (01:37→07:15)
[2019-01-17] MEDS: ALBUTEROL SULFATE 2.5 MG/0.5 ML NEB SOLUTION NEB PRN ×2 (01:58→07:24)
[2019-01-17 06:24] LABS: GLUCOMETER DEV NAME(LOC) 5N.2; GLUCOSE,POINT OF CARE 179 MG/DL (70-110)
[2019-01-17 07:42] LABS: BASOPHILS % (AUTO) 0.8 % (0.0-2.0); HEMATOCRIT 30.3 % (41-53); HEMOGLOBIN 9.7 g/dL (13.5-17.5); LYMPHOCYTES # (AUTO) 1.2 K/uL (1.0-4.8); LYMPHOCYTES % (AUTO) 11.3 % (22.0-44.0); MEAN CORPUSCULAR HEMOGLOBIN 29.6 pg (26.0-34.0); MEAN CORPUSCULAR VOLUME 93 fL (80-100); MONOCYTES # (AUTO) 1.1 K/uL (0.1-1.0); MONOCYTES % (AUTO) 10.3 % (2.0-9.0); NEUTROPHILS # (AUTO) 7.9 K/uL (1.8-7.7); NEUTROPHILS % (AUTO) 76.6 % (40.0-70.0); PLATELET COUNT (AUTO) 306 K/uL (150-450); RED BLOOD CELL COUNT(AUTO) 3.27 MIL/uL (4.50-5.90); RED CELL DISTRIBUTION WIDTH 26.1 % (11.5-14.5)
[2019-01-17 08:02] LABS: CALCIUM, TOTAL 9.3 mg/dL (8.8-10.5); CREATININE 3.19 mg/dL (0.60-1.30); MAGNESIUM 1.7 mg/dL (1.80-2.40); PHOSPHORUS 2.8 mg/dL (2.5-4.9)
[2019-01-17] MEDS: DOCUSATE SODIUM 100 MG CAPSULE PO SCH ×2 (08:10→20:10)
[2019-01-17] MEDS: VITAMIN B COMP/VIT C/FOLIC ACID CAPSULE PO SCH (08:11)
[2019-01-17] MEDS: ASPIRIN 81 MG CHEWABLE TABLET PO SCH (08:11)
[2019-01-17] MEDS: APIXABAN 2.5 MG TABLET PO SCH (08:13)
[2019-01-17] MEDS: OxyCODONE HCL/ACETAMINOPHEN 5-325 MG TABLET PO PRN (08:13)
[2019-01-17] MEDS: FAMOTIDINE 20 MG TABLET PO SCH (08:13)
[2019-01-17 08:30] LABS: GLUCOMETER DEV NAME(LOC) 5N.1; GLUCOSE,POINT OF CARE 171 MG/DL (70-110)
[2019-01-17] MEDS ORDERED: MAGNESIUM OXIDE 400 MG TABLET PO ONE (09:15)
[2019-01-17] MEDS ORDERED: DIGOXIN 250 MCG/ML 2 ML AMP IVP ONE (10:30)
[2019-01-17] MEDS: CefTRIAXone 1 GM/DEXTROSE 50 ML IV SCH (10:30)
[2019-01-17 13:34] LABS: GLUCOMETER DEV NAME(LOC) 5N.2; GLUCOSE,POINT OF CARE 207 MG/DL (70-110)
[2019-01-17] MEDS: METOPROLOL TARTRATE 25 MG TABLET PO SCH ×2 (13:49→21:00)
[2019-01-17] MEDS: INSULIN LISPRO 100 UNITS/ML SQ PRN ×2 (14:03→18:36)
[2019-01-17] MEDS ORDERED: MORPHINE SULFATE 2 MG/ML SYRINGE IVP ONE (14:15)
[2019-01-17] MEDS ORDERED: METOPROLOL TARTRATE 25 MG TABLET PO SCH (16:00)
[2019-01-17 19:49] LABS: GLUCOMETER DEV NAME(LOC) 5N.2; GLUCOSE,POINT OF CARE 169 MG/DL (70-110)
[2019-01-17] MEDS: ATORVASTATIN CALCIUM 10 MG TABLET PO SCH (20:10)
[2019-01-17 21:14] LABS: GLUCOMETER DEV NAME(LOC) 5N.2; GLUCOSE,POINT OF CARE 134 MG/DL (70-110)
[2019-01-18 04:00] VITALS: BP 122/67
[2019-01-18 06:10] LABS: BASOPHILS % (AUTO) 0.6 % (0.0-2.0); EOSINOPHILS % (AUTO) 1.1 % (1.0-6.0); HEMATOCRIT 30.1 % (41-53); HEMOGLOBIN 9.2 g/dL (13.5-17.5); LYMPHOCYTES # (AUTO) 0.8 K/uL (1.0-4.8); LYMPHOCYTES % (AUTO) 7.3 % (22.0-44.0); MEAN CORPUSCULAR HEMOGLOBIN 28.7 pg (26.0-34.0); MEAN CORPUSCULAR HGB CONC 30.4 G/dL (31.0-37.0); MEAN CORPUSCULAR VOLUME 94 fL (80-100); MONOCYTES # (AUTO) 0.8 K/uL (0.1-1.0); MONOCYTES % (AUTO) 6.9 % (2.0-9.0); NEUTROPHILS # (AUTO) 9.4 K/uL (1.8-7.7); NEUTROPHILS % (AUTO) 84.1 % (40.0-70.0); PLATELET COUNT (AUTO) 290 K/uL (150-450); RED BLOOD CELL COUNT(AUTO) 3.18 MIL/uL (4.50-5.90); RED CELL DISTRIBUTION WIDTH 26.3 % (11.5-14.5)
[2019-01-18] MEDS: INSULIN LISPRO 100 UNITS/ML SQ PRN ×4 (06:18→20:18)
[2019-01-18 06:32] LABS: BILIRUBIN,TOTAL 0.9 mg/dL (0.1-1.0); CALCIUM, TOTAL 9.2 mg/dL (8.8-10.5); CREATININE 4.01 mg/dL (0.60-1.30); MAGNESIUM 1.7 mg/dL (1.80-2.40); POTASSIUM 4.3 mmol/L (3.5-5.1); TOTAL PROTEIN, SERUM 6.8 g/dL (6.4-8.2)
[2019-01-18 07:09] LABS: GLUCOMETER DEV NAME(LOC) 5N.2; GLUCOSE,POINT OF CARE 162 MG/DL (70-110)
[2019-01-18 07:45] VITALS: BP 117/63
[2019-01-18] MEDS: DOCUSATE SODIUM 100 MG CAPSULE PO SCH ×2 (09:20→20:15)
[2019-01-18] MEDS: FAMOTIDINE 20 MG TABLET PO SCH (09:20)
[2019-01-18] MEDS: METOPROLOL TARTRATE 25 MG TABLET PO SCH ×3 (09:20→20:16)
[2019-01-18] MEDS: ASPIRIN 81 MG CHEWABLE TABLET PO SCH (09:21)
[2019-01-18] MEDS: CefTRIAXone 1 GM/DEXTROSE 50 ML IV SCH (09:21)
[2019-01-18] MEDS: VITAMIN B COMP/VIT C/FOLIC ACID CAPSULE PO SCH (09:21)
[2019-01-18 11:28] VITALS: BP 119/68
[2019-01-18 15:19] VITALS: BP 124/69
[2019-01-18] MEDS ORDERED: *CLINICAL-RX DOSING [ENTER DRUG IN COMMENTS] CLINICAL ONE (15:45)
[2019-01-18] MEDS ORDERED: MEROPENEM 500 MG in SODIUM CHLORIDE 0.9% 50 ML IV PRN (16:15)
[2019-01-18] MEDS ORDERED: MEROPENEM 500 MG in SODIUM CHLORIDE 0.9% 50 ML IV SCH (16:15)
[2019-01-18] MEDS: OxyCODONE HCL/ACETAMINOPHEN 5-325 MG TABLET PO PRN (17:51)
[2019-01-18 19:39] LABS: GLUCOMETER DEV NAME(LOC) 5N.2; GLUCOSE,POINT OF CARE 188 MG/DL (70-110)
[2019-01-18 19:40] LABS: GLUCOMETER DEV NAME(LOC) 5N.2; GLUCOSE,POINT OF CARE 188 MG/DL (70-110)
[2019-01-18 20:15] VITALS: BP 103/66
[2019-01-18] MEDS: ATORVASTATIN CALCIUM 10 MG TABLET PO SCH (20:15)
[2019-01-18 20:54] LABS: GLUCOMETER DEV NAME(LOC) 5N.2; GLUCOSE,POINT OF CARE 182 MG/DL (70-110)
== END 2019-01-18 21:04 | DRG 91 ==
LOC: EMS 20:05 → 5N 23:00
PROVIDERS: ADMIT Internal Medicine; ATTEND Internal Medicine
PROC: 5A1D70Z Performance of Urinary Filtration, Intermittent, Less than 6 Hours Per Day (ICD-10-PCS; principal; 2019-01-16)
DX: G92 Toxic encephalopathy (principal); N18.6 End stage renal disease; E43 Unspecified severe protein-calorie malnutrition; N39.0 Urinary tract infection, site not specified; I50.22 Chronic systolic (congestive) heart failure; I13.2 Hypertensive heart and chronic kidney disease with heart failure and with stage 5 chronic kidney disease, or end stage renal disease; I48.92 Unspecified atrial flutter; R62.7 Adult failure to thrive; Z16.12 Extended spectrum beta lactamase (ESBL) resistance; I48.91 Unspecified atrial fibrillation; E78.5 Hyperlipidemia, unspecified; J44.9 Chronic obstructive pulmonary disease, unspecified; E11.51 Type 2 diabetes mellitus with diabetic peripheral angiopathy without gangrene; I49.5 Sick sinus syndrome; E11.22 Type 2 diabetes mellitus with diabetic chronic kidney disease; E11.21 Type 2 diabetes mellitus with diabetic nephropathy; I07.1 Rheumatic tricuspid insufficiency; I25.10 Atherosclerotic heart disease of native coronary artery without angina pectoris; D64.9 Anemia, unspecified; Z89.512 Acquired absence of left leg below knee; I25.5 Ischemic cardiomyopathy; I45.10 Unspecified right bundle-branch block; B96.20 Unspecified Escherichia coli [E. coli] as the cause of diseases classified elsewhere; F17.210 Nicotine dependence, cigarettes, uncomplicated; E78.00 Pure hypercholesterolemia, unspecified; Z89.422 Acquired absence of other left toe(s); Z79.4 Long term (current) use of insulin; Z99.2 Dependence on renal dialysis; Z68.32 Body mass index [BMI] 32.0-32.9, adult; Z79.899 Other long term (current) drug therapy
CPT/HCPCS: 70450; 82948; 83735; 84100; 87040; 87081; 87086; 93005; 93308; 94640; 96365; 96372; G0378; J0696; J0885; J1160; J2185; J2270; J7030; J7050

== ENCOUNTER 2019-04-08 17:45 | Emergency (ER) | payer MEDICARE, OTHER ==
[~2019-04-08] VITALS: Ht 175.3 cm; Wt 83.6 kg
[~2019-04-08 17:45] MED LIST changes: -AMLO-512 PO; +AMLO10TA7 PO
[2019-04-08] MEDS: HYDROCODONE/ACETAMINOPHEN 10-325 MG TABLET PO ONE (18:57)
[2019-04-08 19:20] VITALS: BP 108/65
== END 2019-04-08 20:22 | disposition home or self-care (01) ==
LOC: EMS 17:47
DX: G89.29 Other chronic pain (principal); M79.604 Pain in right leg; I25.10 Atherosclerotic heart disease of native coronary artery without angina pectoris; J44.9 Chronic obstructive pulmonary disease, unspecified; E11.9 Type 2 diabetes mellitus without complications; E78.00 Pure hypercholesterolemia, unspecified; I10 Essential (primary) hypertension; F17.210 Nicotine dependence, cigarettes, uncomplicated; Z79.82 Long term (current) use of aspirin

== ENCOUNTER 2019-05-20 14:48 | Emergency (ER) | payer MEDICARE, OTHER ==
[~2019-05-20] VITALS: Ht 175.3 cm; Wt 104.5 kg
[~2019-05-20 14:48] MED LIST changes: +CHOL100018 PO; -VITAD1000 PO
[2019-05-20] MEDS ORDERED: 0.9% SODIUM CHLORIDE 10 ML SYRINGE IVP PRN (16:15)
[2019-05-20] MEDS ORDERED: SODIUM CHLORIDE 0.9% 100 ML ONE (16:35)
[2019-05-20] MEDS ORDERED: IOVERSOL 350 MG/ML 150 ML VIAL ONE (16:35)
[2019-05-20 17:04] LABS: BASOPHILS % (AUTO) 0.9 % (0.0-2.0); EOSINOPHILS % (AUTO) 1.9 % (1.0-6.0); HEMATOCRIT 43.1 % (41-53); HEMOGLOBIN 13.9 g/dL (13.5-17.5); LYMPHOCYTES # (AUTO) 1.1 K/uL (1.0-4.8); LYMPHOCYTES % (AUTO) 16.2 % (22.0-44.0); MEAN CORPUSCULAR HEMOGLOBIN 28.3 pg (26.0-34.0); MEAN CORPUSCULAR HGB CONC 32.2 G/dL (31.0-37.0); MEAN CORPUSCULAR VOLUME 88 fL (80-100); MONOCYTES # (AUTO) 0.6 K/uL (0.1-1.0); MONOCYTES % (AUTO) 8.1 % (2.0-9.0); NEUTROPHILS # (AUTO) 5.1 K/uL (1.8-7.7); NEUTROPHILS % (AUTO) 72.9 % (40.0-70.0); PLATELET COUNT (AUTO) 215 K/uL (150-450); RED CELL DISTRIBUTION WIDTH 21.1 % (11.5-14.5)
[2019-05-20 17:18] LABS: INR 1.3 (0.9-1.1); PROTHROMBIN TIME 12.8 SEC (9.4-11.6)
[2019-05-20] MEDS ORDERED: FentaNYL CITRATE-PF 100 MCG/2 ML VIAL IVP ONE (17:30)
[2019-05-20 17:39] LABS: LACTIC ACID 1.1 mmol/L (0.4-2.0)
[2019-05-20 17:48] LABS: ALBUMIN 3.1 g/dL (3.4-5.0); BILIRUBIN,TOTAL 1.1 mg/dL (0.1-1.0); CALCIUM, TOTAL 10.2 mg/dL (8.8-10.5); CREATININE 5.19 mg/dL (0.60-1.30); TOTAL PROTEIN, SERUM 8.5 g/dL (6.4-8.2)
[2019-05-20] MEDS ORDERED: INSULIN REGULAR, HUMAN 100 UNITS/ML SQ ONE (18:00)
[2019-05-20] MEDS ORDERED: SODIUM POLYSTYRENE SULFONATE 15 GM/60 ML SUSPENSION BOTTLE PO ONE (18:00)
[2019-05-20] MEDS ORDERED: CALCIUM GLUCONATE 100 MG/ML 10 ML IVP ONE (18:00)
[2019-05-20] MEDS ORDERED: DEXTROSE 50%-WATER 25 GM/50 ML SYRINGE IVP ONE (18:30)
[2019-05-20 18:31] LABS: GLUCOSE,POINT OF CARE 80 MG/DL (70-110)
[2019-05-20] MEDS ORDERED: HEPARIN SODIUM,PORCINE 5,000 UNITS/ML VIAL IVP ONE (19:30)
[2019-05-20] MEDS ORDERED: HEPARIN SODIUM 25000 UNITS/D5W 250 ML IV PRN (19:30)
[2019-05-20 20:27] VITALS: BP 136/80
[2019-05-20 21:20] LABS: CALCIUM, TOTAL 9.9 mg/dL (8.8-10.5); CREATININE 5.16 mg/dL (0.60-1.30); POTASSIUM 5.8 mmol/L (3.5-5.1)
[2019-05-20] MEDS ORDERED: HEPARIN SODIUM,PORCINE 5,000 UNITS/ML VIAL IVP PRN ×2 (21:30)
== END 2019-05-20 21:15 | disposition short-term general hospital (02) ==
LOC: EMS 14:52
DX: I70.234 Atherosclerosis of native arteries of right leg with ulceration of heel and midfoot (principal); E11.621 Type 2 diabetes mellitus with foot ulcer; L97.411 Non-pressure chronic ulcer of right heel and midfoot limited to breakdown of skin; I25.10 Atherosclerotic heart disease of native coronary artery without angina pectoris; I10 Essential (primary) hypertension; J44.9 Chronic obstructive pulmonary disease, unspecified; F17.210 Nicotine dependence, cigarettes, uncomplicated; Z99.2 Dependence on renal dialysis; Z98.890 Other specified postprocedural states; Z79.899 Other long term (current) drug therapy; Z89.612 Acquired absence of left leg above knee; Z91.018 Allergy to other foods
CPT/HCPCS: 36415; 80048; 80053; 82550; 82962; 83605; 83880; 84484; 85025; 85610; 87040; 93005; 93926; 96372; 96374; 96375; 99285; J0610; J1644; J1815; J3010; J7050; Q9967